=== PATIENT | female | born 1975 | race Caucasian/White ===

== ENCOUNTER 2021-10-06 18:11 | Inpatient (IN) | payer OTHER ==
--- NOTE | 2021-10-06 19:02 | ED ---
General Adult HPI - General Chief complaint: Psychiatric Symptoms Stated complaint: Petition Time Seen by Provider: 10/06/21 19:00 Source: patient, police Mode of arrival: ambulatory Limitations: no limitations - History of Present Illness Initial comments: Patient brought to the ED by police for psychiatric evaluation. Per report, police were called because the patient was following someone and recording them, stating that she was ANTHONY. Patient does not admit to this at this time, and instead, she states that she is unsure why she is here. Patient is able to tell me that the police brought her here. Patient is A&O x 3. Patient denies having suicidal ideations, homicidal ideations, hallucinations, alcohol use, illicit drug use, medication abuse or overdose, trauma or injury, any pain, fever or chills, WIN, focal neuro deficit, chest pain, dyspnea, dizziness, abdominal pain, nausea/vomiting, dysuria or urinary symptoms, or any other symptoms or complaints. Patient states that she has in [place] visiting friends, and she states that she resides in [place]. - Related Data Home Medications Medication Instructions Recorded Confirmed No Known Home Medications 10/06/21 10/06/21 Allergies Allergy/AdvReac Type Severity Reaction Status Date / Time No Known Allergies Allergy Verified 10/07/21 18:42 Review of Systems ROS Statement: Those systems with pertinent positive or pertinent negative responses have been documented in the HPI. ROS Other: All systems not noted in ROS Statement are negative. Past Medical History Past Medical History: No Reported History History of Any Multi-Drug Resistant Organisms: None Reported Past Surgical History: Ear Surgery Past Psychological History: No Psychological Hx Reported Smoking Status: Current some day smoker Past Alcohol Use History: Occasional Past Drug Use History: None Reported General Exam Limitations: no limitations General appearance: alert, in no apparent distress Head exam: Present: atraumatic, normocephalic Eye exam: Present: PERRL, EOMI, conjunctival injection ENT exam: Present: mucous membranes moist Neck exam: Present: other (Trachea is in midline; no nuchal rigidity or meni ngeal signs are present on examination). Absent: tenderness, meningismus Respiratory exam: Present: normal lung sounds bilaterally. Absent: respiratory distress, wheezes, rales, rhonchi, stridor Cardiovascular Exam: Present: regular rate, normal rhythm, normal heart sounds, other (Normal radial pulses bilaterally) GI/Abdominal exam: Present: soft. Absent: distended, tenderness, guarding Neurological exam: Present: alert, oriented X3, CN II-XII intact. Absent: motor sensory deficit Psychiatric exam: Present: normal affect Skin exam: Present: warm, dry, intact, normal color Course Vital Signs 10/06/21 10/07/21 18:25 03:00 Temperature 99.2 F 98 F Pulse Rate 101 H 77 Respiratory 18 20 Rate Blood Pressure 150/89 137/87 O2 Sat by Pulse 95 98 Oximetry - Reevaluation(s) Reevaluation #1: 10/07/21 01:00 Patient was endorsed to Dr. Burton (secondary to end of my shift) with psychiatric placement pending. Dr. Burton to follow up on the EPS nurse's recommendations and to take over care of the patient at this time. Medical Decision Making - Lab Data Result diagrams: 10/10/21 13:20 10/10/21 13:20 Lab Results 10/06/21 10/06/21 10/06/21 Range/Units 21:12 21:12 21:12 WBC 16.6 H (3.8-10.6) k/uL RBC 4.59 (3.80-5.40) m/uL Hgb 15.2 (11.4-16.0) gm/dL Hct 45.1 (34.0-46.0) % MCV 98.1 (80.0-100.0) fL MCH 33.0 (25.0-35.0) pg MCHC 33.7 (31.0-37.0) g/dL RDW 13.7 (11.5-15.5) % Plt Count 361 (150-450) k/uL MPV 7.6 Neutrophils % 74 % Lymphocytes % 19 % Monocytes % 5 % Eosinophils % 0 % Basophils % 0 % Neutrophils # 12.3 H (1.3-7.7) k/uL Lymphocytes # 3.2 (1.0-4.8) k/uL Monocytes # 0.8 (0-1.0) k/uL Eosinophils # 0.1 (0-0.7) k/uL Basophils # 0.1 (0-0.2) k/uL Sodium 139 (137-145) mmol/L Potassium 3.9 (3.5-5.1) mmol/L Chloride 109 H (98-107) mmol/L Carbon Dioxide 20 L (22-30) mmol/L Anion Gap 10 mmol/L BUN 18 H (7-17) mg/dL Creatinine 0.78 (0.52-1.04) mg/dL Est GFR (CKD-EPI)AfAm >90 (>60 ml/min/1.73 sqM) Est GFR (CKD-EPI)NonAf >90 (>60 ml/min/1.73 sqM) Glucose 116 H (74-99) mg/dL Estimated Ave Glu mg/dL Hemoglobin A1c (0.0-6.0) % Calcium 9.7 (8.4-10.2) mg/dL Total Bilirubin 1.5 H (0.2-1.3) mg/dL AST 23 (14-36) U/L ALT 30 (4-34) U/L Alkaline Phosphatase 87 (38-126) U/L Total Protein 7.7 (6.3-8.2) g/dL Albumin 4.3 (3.5-5.0) g/dL Triglycerides (0.00-149.00) mg/dL Cholesterol (0.00-200.00) mg/dL LDL Cholesterol, Calc (0.0-131.0) mg/dL VLDL Cholesterol, Calc (5.00-40.00) mg/dL HDL Cholesterol (40.00-60.00) mg/dL Cholesterol/HDL Ratio Ratio TSH (0.465-4.680) mIU/L Urine Color Urine Appearance (Clear) Urine pH (5.0-8.0) Ur Specific [place] (1.001-1.035) Urine Protein (Negative) Urine Glucose (UA) (Negative) Urine Ketones (Negative) Urine Blood (Negative) Urine Nitrite (Negative) Urine Bilirubin (Negative) Urine Urobilinogen (<2.0) mg/dL Ur Leukocyte Esterase (Negative) Urine RBC (0-5) /hpf Urine WBC (0-5) /hpf Ur Squamous Epith Cells (0-4) /hpf Urine Mucus (None) /hpf Urine Opiates Screen Not Detected (NotDetected) Ur Oxycodone Screen Not Detected (NotDetected) Urine Methadone Screen Not Detected (NotDetected) Ur Propoxyphene Screen Not Detected (NotDetected) Ur Barbiturates Screen Not Detected (NotDetected) U Tricyclic Antidepress Not Detected (NotDetected) Ur Phencyclidine Scrn Not Detected (NotDetected) Ur Amphetamines Screen Not Detected (NotDetected) U Methamphetamines Scrn Not Detected (NotDetected) U Benzodiazepines Scrn Detected H (NotDetected) Urine Cocaine Screen Not Detected (NotDetected) U Marijuana (THC) Screen Detected H (NotDetected) Coronavirus (PCR) (Not Detectd) 10/06/21 10/06/21 10/06/21 Range/Units 21:12 21:12 21:12 WBC (3.8-10.6) k/uL RBC (3.80-5.40) m/uL Hgb (11.4-16.0) gm/dL Hct (34.0-46.0) % MCV (80.0-100.0) fL MCH (25.0-35.0) pg MCHC (31.0-37.0) g/dL RDW (11.5-15.5) % Plt Count (150-450) k/uL MPV Neutrophils % % Lymphocytes % % Monocytes % % Eosinophils % % Basophils % % Neutrophils # (1.3-7.7) k/uL Lymphocytes # (1.0-4.8) k/uL Monocytes # (0-1.0) k/uL Eosinophils # (0-0.7) k/uL Basophils # (0-0.2) k/uL Sodium (137-145) mmol/L Potassium (3.5-5.1) mmol/L Chloride (98-107) mmol/L Carbon Dioxide (22-30) mmol/L Anion Gap mmol/L BUN (7-17) mg/dL Creatinine (0.52-1.04) mg/dL Est GFR (CKD-EPI)AfAm (>60 ml/min/1.73 sqM) Est GFR (CKD-EPI)NonAf (>60 ml/min/1.73 sqM) Glucose (74-99) mg/dL Estimated Ave Glu mg/dL 90 Hemoglobin A1c 4.8 (0.0-6.0) % Calcium (8.4-10.2) mg/dL Total Bilirubin (0.2-1.3) mg/dL AST (14-36) U/L ALT (4-34) U/L Alkaline Phosphatase (38-126) U/L Total Protein (6.3-8.2) g/dL Albumin (3.5-5.0) g/dL Triglycerides 82.10 (0.00-149.00) mg/dL Cholesterol 195.00 (0.00-200.00) mg/dL LDL Cholesterol, Calc 105.7 (0.0-131.0) mg/dL VLDL Cholesterol, Calc 16.42 (5.00-40.00) mg/dL HDL Cholesterol 72.90 H (40.00-60.00) mg/dL Cholesterol/HDL Ratio 2.67 Ratio TSH 3.080 (0.465-4.680) mIU/L Urine Color Urine Appearance (Clear) Urine pH (5.0-8.0) Ur Specific [place] (1.001-1.035) Urine Protein (Negative) Urine Glucose (UA) (Negative) Urine Ketones (Negative) Urine Blood (Negative) Urine Nitrite (Negative) Urine Bilirubin (Negative) Urine Urobilinogen (<2.0) mg/dL Ur Leukocyte Esterase (Negative) Urine RBC (0-5) /hpf Urine WBC (0-5) /hpf Ur Squamous Epith Cells (0-4) /hpf Urine Mucus (None) /hpf Urine Opiates Screen (NotDetected) Ur Oxycodone Screen (NotDetected) Urine Methadone Screen (NotDetected) Ur Propoxyphene Screen (NotDetected) Ur Barbiturates Screen (NotDetected) U Tricyclic Antidepress (NotDetected) Ur Phencyclidine Scrn (NotDetected) Ur Amphetamines Screen (NotDetected) U Methamphetamines Scrn (NotDetected) U Benzodiazepines Scrn (NotDetected) Urine Cocaine Screen (NotDetected) U Marijuana (THC) Screen (NotDetected) Coronavirus (PCR) Not Detected (Not Detectd) 10/06/21 Range/Units 21:28 WBC (3.8-10.6) k/uL RBC (3.80-5.40) m/uL Hgb (11.4-16.0) gm/dL Hct (34.0-46.0) % MCV (80.0-100.0) fL MCH (25.0-35.0) pg MCHC (31.0-37.0) g/dL RDW (11.5-15.5) % Plt Count (150-450) k/uL MPV Neutrophils % % Lymphocytes % % Monocytes % % Eosinophils % % Basophils % % Neutrophils # (1.3-7.7) k/uL Lymphocytes # (1.0-4.8) k/uL Monocytes # (0-1.0) k/uL Eosinophils # (0-0.7) k/uL Basophils # (0-0.2) k/uL Sodium (137-145) mmol/L Potassium (3.5-5.1) mmol/L Chloride (98-107) mmol/L Carbon Dioxide (22-30) mmol/L Anion Gap mmol/L BUN (7-17) mg/dL Creatinine (0.52-1.04) mg/dL Est GFR (CKD-EPI)AfAm (>60 ml/min/1.73 sqM) Est GFR (CKD-EPI)NonAf (>60 ml/min/1.73 sqM) Glucose (74-99) mg/dL Estimated Ave Glu mg/dL Hemoglobin A1c (0.0-6.0) % Calcium (8.4-10.2) mg/dL Total Bilirubin (0.2-1.3) mg/dL AST (14-36) U/L ALT (4-34) U/L Alkaline Phosphatase (38-126) U/L Total Protein (6.3-8.2) g/dL Albumin (3.5-5.0) g/dL Triglycerides (0.00-149.00) mg/dL Cholesterol (0.00-200.00) mg/dL LDL Cholesterol, Calc (0.0-131.0) mg/dL VLDL Cholesterol, Calc (5.00-40.00) mg/dL HDL Cholesterol (40.00-60.00) mg/dL Cholesterol/HDL Ratio Ratio TSH (0.465-4.680) mIU/L Urine Color Yellow Urine Appearance Cloudy H (Clear) Urine pH 5.5 (5.0-8.0) Ur Specific [place] 1.019 (1.001-1.035) Urine Protein Negative (Negative) Urine Glucose (UA) Negative (Negative) Urine Ketones Negative (Negative) Urine Blood Negative (Negative) Urine Nitrite Negative (Negative) Urine Bilirubin Negative (Negative) Urine Urobilinogen 2.0 (<2.0) mg/dL Ur Leukocyte Esterase Negative (Negative) Urine RBC 1 (0-5) /hpf Urine WBC 5 (0-5) /hpf Ur Squamous Epith Cells 7 H (0-4) /hpf Urine Mucus Rare H (None) /hpf Urine Opiates Screen (NotDetected) Ur Oxycodone Screen (NotDetected) Urine Methadone Screen (NotDetected) Ur Propoxyphene Screen (NotDetected) Ur Barbiturates Screen (NotDetected) U Tricyclic Antidepress (NotDetected) Ur Phencyclidine Scrn (NotDetected) Ur Amphetamines Screen (NotDetected) U Methamphetamines Scrn (NotDetected) U Benzodiazepines Scrn (NotDetected) Urine Cocaine Screen (NotDetected) U Marijuana (THC) Screen (NotDetected) Coronavirus (PCR) (Not Detectd) Disposition Clinical Impression: Delusions Disposition: ADMITTED IP TO THIS HOSP Is patient prescribed a controlled substance at d/c from ED?: No
[2021-10-06 21:43] LABS: Basophils # (A) 0.1 k/uL (0-0.2); Basophils % (A) 0 %; Eosinophils # (A) 0.1 k/uL (0-0.7); Eosinophils % (A) 0 %; HCT 45.1 % (34.0-46.0); HGB 15.2 gm/dL (11.4-16.0); Lymphocytes # (A) 3.2 k/uL (1.0-4.8); Lymphocytes % (A) 19 %; MCHC 33.7 g/dL (31.0-37.0); MCV 98.1 fL (80.0-100.0); Mean Platelet Volume 7.6; Monocytes # (A) 0.8 k/uL (0-1.0); Monocytes % (A) 5 %; Neutrophils # (A) 12.3 k/uL (1.3-7.7); Neutrophils % (A) 74 %; Platelet Count 361 k/uL (150-450); RBC 4.59 m/uL (3.80-5.40); RDW 13.7 % (11.5-15.5); WBC 16.6 k/uL (3.8-10.6)
[2021-10-06 21:54] LABS: ALT 30 U/L (4-34); AST 23 U/L (14-36); African American GFR (CKD) >90 (>60 ml/min/1.73 sqM); Albumin 4.3 g/dL (3.5-5.0); Alkaline Phosphatase 87 U/L (38-126); Anion Gap 10 mmol/L; Blood Urea Nitrogen 18 mg/dL (7-17); Calcium 9.7 mg/dL (8.4-10.2); Carbon Dioxide 20 mmol/L (22-30); Chloride 109 mmol/L (98-107); Glucose 116 mg/dL (74-99); Non-African American GFR(CKD) >90 (>60 ml/min/1.73 sqM); Potassium 3.9 mmol/L (3.5-5.1); Sodium 139 mmol/L (137-145); Total Bilirubin 1.5 mg/dL (0.2-1.3); Total Protein 7.7 g/dL (6.3-8.2)
[2021-10-06] MEDS ORDERED: LORazepam 1 MG TAB PO STA (22:17)
[2021-10-06] MEDS ORDERED: LORazepam 2 MG/ML INJ IM STA (22:25)
[2021-10-07] MEDS ORDERED: LORazepam 2 MG/ML INJ IM STA (13:07)
[2021-10-07] MEDS ORDERED: ZIPRASIDONE 20 MG VIAL IM STA (13:08)
[2021-10-07] MEDS ORDERED: MAG HYDROX/AL HYDROX/SIMETH 30 ML CUP PO PRN (18:16)
[2021-10-07] MEDS ORDERED: MAGNESIUM HYDROXIDE 2,400 MG/10 ML CUP PO PRN (18:16)
[2021-10-07] MEDS ORDERED: HALOPERIDOL LACTATE 5 MG/ML 1 ML VIAL IM PRN (18:16)
[2021-10-07] MEDS ORDERED: LORazepam 2 MG/ML INJ IM PRN (18:37)
[2021-10-07] MEDS ORDERED: haloperidoL 5 MG TAB PO PRN (18:37)
[2021-10-07] MEDS ORDERED: QUEtiapine 100 MG TAB PO PRN (18:37)
[2021-10-07 22:21] LABS: Appearance,Urine Cloudy (Clear); Bilirubin,Urine Negative (Negative); Blood,Urine Negative (Negative); Color,Urine Yellow; Glucose,Urine (UA) Negative (Negative); Ketones,Urine Negative (Negative); Leukocyte Esterase,Urine Negative (Negative); Mucus,Urine Rare /hpf; Nitrite,Urine Negative (Negative); PH, Urine 5.5 (5.0-8.0); Protein,Urine Negative (Negative); RBC,Urine 1 /hpf (0-5); Specific Gravity,Urine 1.019 (1.001-1.035); Squamous Epithelial Cell,Urine 7 /hpf (0-4); WBC,Urine 5 /hpf (0-5)
[2021-10-07] MEDS: LORazepam 1 MG TAB PO PRN (22:23)
[2021-10-07 22:31] LABS: Amphetamine Screen,Urine Not Detected (NotDetected); Barbiturate Screen,Urine Not Detected (NotDetected); Benzodiazepines Screen,Urine Detected (NotDetected); Cocaine Screen,Urine Not Detected (NotDetected); Methadone Screen, Urine Not Detected (NotDetected); Opiate Screen,Urine Not Detected (NotDetected); Oxycodone Screen, Urine Not Detected (NotDetected); Phencyclidine Screen,Urine Not Detected (NotDetected); Tricyclic Antidepressant,Urine Not Detected (NotDetected); Urn Cannabinoid Scrn Detected (NotDetected)
--- NOTE | 2021-10-08 00:05 | P.PN ---
Progress Note - Text Progress Note Date: 10/08/21 The patient refused to be seen or evaluated at 2100 on 10/07.
--- NOTE | 2021-10-08 00:24 | P.CONS ---
History of Present Illness - Reason for Consult Consult date: 10/08/21 - History of Present Illness Patient is a 46-year-old female with a PMH of marijuana abuse who was brought to the emergency room under police custody due to paranoid behavior. The patient was admitted to the mental health unit when she was seen and evaluated. She reports that she is not aware why she was brought in and that she should be discharged soon. She denied any physical complaints at the time of interview. She reports no past medical history and does not take any medications. He denied chest discomfort cautious with, fever, chills, cough, nausea, vomiting, abdominal pain, diarrhea. She denied tobacco use or substance use aside from marijuana. Review of systems: Pertinent positives and negatives as discussed in HPI, a complete review of systems was performed and all other systems are negative. Physical examination: General: non toxic, no distress, appears at stated age, normal weight Derm: no unusual rashes/lesions no unusual ecchymoses, warm, dry Head: atraumatic, normocephalic, symmetric Eyes: EOMI, no lid lag, anicteric sclera, pupils equal round reactive to light ENT: Nose and ears atraumatic, no thrush, no pharyngeal erythema Neck: No thyromegaly, no cervical lymphadenopathy, trachea midline, supple Mouth: no lip lesion, mucus membranes moist Cardiovascular: S1S2 reg, no murmur, positive posterior tibial pulse bilateral, no edema, capillary refill less than 2 seconds Lungs: CTA bilateral, no rhonchi, no rales , no accessory muscle use Abdominal: soft, nontender to palpation, no guarding, no appreciable organomegaly, normal bowel sounds Ext: no gross muscle atrophy, muscle strength 5 out of 5 in all 4 extremities grossly, no contractures, Neuro: CN II-XI grossly intact, light touch intact all 4 extremities, finger to nose within normal limits, Psych: Alert, oriented, appropriate affect Assessment/plan Marijuana Abuse -Strongly advised on importance of cessation Psychosis -As per psychiatry Thank you for allowing us to participate in the care of this patient. We will follow peripherally. Do not hesitate to contact us with questions. Someone can be reached from the [facility] hospitalist group at all hours of the day at [phone]. Past Medical History Past Medical History: No Reported History History of Any Multi-Drug Resistant Organisms: None Reported Past Surgical History: Ear Surgery Past Anesthesia/Blood Transfusion Reactions: No Reported Reaction Past Psychological History: No Psychological Hx Reported Smoking Status: Current some day smoker Past Alcohol Use History: Occasional Past Drug Use History: None Reported Medications and Allergies Home Medications Medication Instructions Recorded Confirmed Type No Known Home Medications 10/06/21 10/06/21 History Allergies Allergy/AdvReac Type Severity Reaction Status Date / Time No Known Allergies Allergy Verified 10/07/21 18:42 Physical Exam Vitals: Vital Signs Temp Pulse Pulse Resp BP BP Pulse Ox 10/07/21 18:24 97.4 F L 94 20 121/76 10/07/21 03:00 98 F 77 20 137/87 98 Intake and Output 10/07/21 10/07/21 10/08/21 14:59 22:59 06:59 Other: Weight 82.554 kg Results CBC & Chem 7: 10/06/21 21:12 10/06/21 21:12 Labs: Abnormal Lab Results - Last 24 Hours (Table) 10/06/21 10/06/21 Range/Units 21:12 21:28 Urine Appearance Cloudy H (Clear) Ur Squamous Epith Cells 7 H (0-4) /hpf Urine Mucus Rare H (None) /hpf U Benzodiazepines Scrn Detected H (NotDetected) U Marijuana (THC) Screen Detected H (NotDetected)
[2021-10-08 06:17] VITALS: RESP 16
[2021-10-08 09:04] LABS: Urine Alcohol Negative (Negative); Urine Barbiturate Negative (Negative); Urine Cocaine Negative (Negative); Urine Methadone Negative (Negative); Urine Opiates Negative (Negative); Urine Phencyclidine Negative (Negative)
[2021-10-08] MEDS: NICOTINE 14MG/24HR PATCH TRANSDERM SCH (09:15)
[2021-10-08 09:44] LABS: Chol/HDL Ratio 2.67 Ratio; LDL Cholesterol,Calculated 105.7 mg/dL (0.0-131.0); VLDL Calculation 16.42 mg/dL (5.00-40.00)
--- NOTE | 2021-10-08 13:06 | P.HP ---
Psychiatric H&P - . H&P Date: 10/08/21 History & Physical: Allergies Allergy/AdvReac Type Severity Reaction Status Date / Time No Known Allergies Allergy Verified 10/07/21 18:42 Vital Signs Temp 97.7 F 10/08/21 06:16 Pulse 77 10/08/21 06:16 Resp 16 10/08/21 06:16 BP 108/62 10/08/21 06:16 Pulse Ox 95 10/08/21 06:16 Intake & Output 10/07/21 10/08/21 10/08/21 18:59 06:59 18:59 Weight 82.554 kg Laboratory Last Values WBC 16.6 k/uL (3.8-10.6) H 10/06/21 21:12 RBC 4.59 m/uL (3.80-5.40) 10/06/21 21:12 Hgb 15.2 gm/dL (11.4-16.0) 10/06/21 21:12 Hct 45.1 % (34.0-46.0) 10/06/21 21:12 MCV 98.1 fL (80.0-100.0) 10/06/21 21:12 MCH 33.0 pg (25.0-35.0) 10/06/21 21:12 MCHC 33.7 g/dL (31.0-37.0) 10/06/21 21:12 RDW 13.7 % (11.5-15.5) 10/06/21 21:12 Plt Count 361 k/uL (150-450) 10/06/21 21:12 MPV 7.6 10/06/21 21:12 Neutrophils % 74 % 10/06/21 21:12 Lymphocytes % 19 % 10/06/21 21:12 Monocytes % 5 % 10/06/21 21:12 Eosinophils % 0 % 10/06/21 21:12 Basophils % 0 % 10/06/21 21:12 Neutrophils # 12.3 k/uL (1.3-7.7) H 10/06/21 21:12 Lymphocytes # 3.2 k/uL (1.0-4.8) 10/06/21 21:12 Monocytes # 0.8 k/uL (0-1.0) 10/06/21 21:12 Eosinophils # 0.1 k/uL (0-0.7) 10/06/21 21:12 Basophils # 0.1 k/uL (0-0.2) 10/06/21 21:12 Sodium 139 mmol/L (137-145) 10/06/21 21:12 Potassium 3.9 mmol/L (3.5-5.1) 10/06/21 21:12 Chloride 109 mmol/L (98-107) H 10/06/21 21:12 Carbon Dioxide 20 mmol/L (22-30) L 10/06/21 21:12 Anion Gap 10 mmol/L 10/06/21 21:12 BUN 18 mg/dL (7-17) H 10/06/21 21:12 Creatinine 0.78 mg/dL (0.52-1.04) 10/06/21 21:12 Est GFR (CKD-EPI)AfAm >90 (>60 ml/min/1.73 sqM) 10/06/21 21:12 Est GFR (CKD-EPI)NonAf >90 (>60 ml/min/1.73 sqM) 10/06/21 21:12 Glucose 116 mg/dL (74-99) H 10/06/21 21:[address] Glu mg/dL 90 10/06/21 21:12 Hemoglobin A1c 4.8 % (0.0-6.0) 10/06/21 21:12 Calcium 9.7 mg/dL (8.4-10.2) 10/06/21 21:12 Total Bilirubin 1.5 mg/dL (0.2-1.3) H 10/06/21 21:12 AST 23 U/L (14-36) 10/06/21 21:12 ALT 30 U/L (4-34) 10/06/21 21:12 Alkaline Phosphatase 87 U/L (38-126) 10/06/21 21:12 Total Protein 7.7 g/dL (6.3-8.2) 10/06/21 21:12 Albumin 4.3 g/dL (3.5-5.0) 10/06/21 21:12 Triglycerides 82.10 mg/dL (0.00-149.00) 10/06/21 21:12 Cholesterol 195.00 mg/dL (0.00-200.00) 10/06/21 21:12 LDL Cholesterol, Calc 105.7 mg/dL (0.0-131.0) 10/06/21 21: VLDL Cholesterol, Calc 16.42 mg/dL (5.00-40.00) 10/06/21 21: HDL Cholesterol 72.90 mg/dL (40.00-60.00) H 10/06/21 21: Cholesterol/HDL Ratio 2.67 Ratio 10/06/21: TSH 3.080 mIU/L (0.465-4.680) 10/06/21 21: Urine Color Yellow 10/06/21 21: Urine Appearance Cloudy (Clear) H 10/06/21 21: Urine pH 5.5 (5.0-8.0) 10/06/21: Ur Specific [place] 1.019 (1.001-1.035) 10/06/21 21: Urine Protein Negative (Negative) 10/06/21 21: Urine Glucose (UA) Negative (Negative) 10/06/21 21: Urine Ketones Negative (Negative) 10/06/21 21: Urine Blood Negative (Negative) 10/06/21 21: Urine Nitrite Negative (Negative) 10/06/21 21: Urine Bilirubin Negative (Negative) 10/06/21: Urine Urobilinogen 2.0 mg/dL (<2.0) 10/06/21 21:28 Ur Leukocyte Esterase Negative (Negative) 10/06/21 21:28 Urine RBC 1 /hpf (0-5) 10/06/21 21:28 Urine WBC 5 /hpf (0-5) 10/06/21 21:28 Ur Squamous Epith Cells 7 /hpf (0-4) H 10/06/21 21:28 Urine Mucus Rare /hpf (None) H 10/06/21 21:28 Urine Opiates Screen Negative (Negative) 10/07/21 20:29 Ur Oxycodone Screen Not Detected (NotDetected) 10/06/21 21: Urine Methadone Screen Negative (Negative) 10/07/21 20:29 Ur Propoxyphene Screen Negative (Negative) 10/07/21 20:29 Ur Barbiturates Screen Not Detected (NotDetected) 10/06/21 21: Urine Barbiturates Negative (Negative) 10/07/21 20:29 U Tricyclic Antidepress Not Detected (NotDetected) 10/06/21 21:12 Ur Phencyclidine Scrn Negative (Negative) 10/07/21 20:29 Ur Amphetamine Screen Negative (Negative) 10/07/21 20:29 Ur Amphetamines Screen Not Detected (NotDetected) 10/06/21 21:12 U Methamphetamines Scrn Not Detected (NotDetected) 10/06/21 21:12 U Benzodiazepines Scrn Negative (Negative) 10/07/21 20:29 Urine Cocaine Screen Negative (Negative) 10/07/21 20:29 U Cannabinoids Screen Positive (Negative) A 10/07/21 20:29 U Marijuana (THC) Screen Detected (NotDetected) H 10/06/21 21:12 Urine Alcohol Negative (Negative) 10/07/21 20:29 Coronavirus (PCR) Not Detected (Not Detectd) 10/06/21 21:12 10/08/21 12:59 IDENTIFYING DATA: Patient is a 46-year-old female who [facility] [place] however is . She has no kids. She claims t hat she works at [employer]. HPI: Patient presented to the hospital yesterday on a petition brought in by the police. Patient apparently was making statements about working for [employer] and driving around town calling someone a terrorist repeatedly. She apparently has a history of schizophrenia and was psychiatrically hospitalized several times in [place]. Patient had a positive urine drug screen for benzodiazepines and marijuana. Patient was admitted involuntarily to the mental health unit. She was fairly concrete, guarded and evasive with underwriter mortgage loan. She was very suspicious of underwriter mortgage loan and endorsing paranoia. She claims that she is "not sure" why she is in the hospital. She claims that she was driving around town" got lost" as she was supposed to end up in "[facility]". She states that she has a "friend in the area" and will be staying with her however when asked more questions, patient began getting more defensive and irritable with underwriter mortgage loan. She claims that "you're only here to give the medications and then discharged me". She was fairly demanding at times. She states that she took Risperdal in the past and only takes it when she "calls my psychiatrist and he tells me to take it". She states that she's been off medications for several weeks now. She was fairly guarded and evasive about how she got to [place] from [place]. She states that she sleeps fairly and has a fair appetite. She denied everything on the petition filled out by the police. Patient denies any suicidal or homicidal ideations intent or plan. At this time patient denies any auditory or visual hallucinations. Patient denies any flight of ideas racing thoughts and increased in goal directed behavior. Patient admits to using cigarettes daily and admits to marijuana use. PAST PSYCHIATRIC HISTORY: Patient states that she believes she has no psychiatric illness. She claims that she has been on several different medications in the past including Risperdal. She claims that she has been hospitalized in the past however was guarded about it. She claims that she does have a psychiatrist in [place] however did not give the name. Patient denies any history of suicide attempts in the past. PMH: As per medicine note ALLERGIES: as per EMR CHEMICAL DEPENDENCY HISTORY: as per HPI FAMILY PSYCHIATRIC/SUBSTANCE USE HISTORY: denies SOCIAL HISTORY: Patient was born and raised in [facility]. She states that she has a bachelor's degree in finance from [employer]. She claims that she has no kids. She states that she is . She claims that her residence [place] [facility] [place]. She denies ever going to detention or half-way. MENTAL STATUS EXAM: General Appearance: Patient appears to be tall, unkempt hair, stated age is alert, defensive, paranoid and argumentative. Patient appears to have poor hygiene and grooming. Behavior: Patient is seated without any agitated behavior. Paranoid Speech: Patient's speech is fluent and nonpressured. [place] Mood/Affect: Patient reports their mood is "fine", affect is congruent and constricted. Suicidality/Homicidality: Patient denies having any homicidal ideation intent or plan. Denies any suicidal ideations intent or plan Perceptions: Patient denies any visual hallucinations and denies any auditory hallucinations Though content/process: [place], poverty of content. Guarded/evasive. Paranoid. Memory and concentration: AOX3, grossly intact for the purposes of this session. Can spell "WORLD" backwards Judgment and insight: poor STRENGTHS/WEAKNESSES: strength is that patient is resilient. Weakness is that patient has poor judgment, insight and is impulsive INTELLECT: average IMPRESSIONS: Schizophrenia Cannabis use disorder Nicotine dependence PLAN: -Patient is admitted under involuntary status to MHU for stabilization of psychiatric symptoms and safety. Patient has signed medication consent and is placed in patient's chart. A second certification was completed and along with petition will be filed for court. -Medications : Will start patient on paliperidone by mouth 3 mg daily at bedtime for psychosis. -Ativan and Haldol PRN for agitation/aggression -Patient was counselled on substance abuse and desired to cut back on use -Patient was informed of the risks, benefits and side effects of the medication and patient verbally consented to taking the medications. Patient signed med consent form and was placed in chart. -Internal Medicine consult to perform medical evaluation and physical. -NRT - nicotine patch -SW on board for discharge planning. Encourage patient to participate in groups to work on coping skills. Will await deferral and court date.
[2021-10-08] MEDS ORDERED: PALIPERIDONE 3 MG TAB.ER.24 PO SCH (21:00)
[2021-10-09] MEDS: NICOTINE 14MG/24HR PATCH TRANSDERM SCH (08:07)
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
[2021-10-09] MEDS: PALIPERIDONE 6 MG TAB.ER.24 PO SCH (20:56)
[2021-10-10] MEDS: LORazepam 1 MG TAB PO PRN (05:45)
[2021-10-10] MEDS: NICOTINE 14MG/24HR PATCH TRANSDERM SCH (08:12)
[2021-10-10] MEDS: ACETAMINOPHEN TAB 325 MG TAB PO PRN (11:03)
[2021-10-10] MEDS ORDERED: CEPHALEXIN 250 MG CAP PO PRN (11:20)
--- NOTE | 2021-10-10 11:27 | P.PN ---
Progress Note - Text Progress Note Date: 10/10/21 (\\) Interval History: Patient was seen in her room today and was directable and agreeable to speak with greeting card writer in the office. Patient appeared to be calmer today with greeting card writer and less hostile. She continues to be guarded about her plans for discharge. She states that she wants to go and stay in [place]. She claims that her car is close by and with the police. She claims that she does not want her family to know that she is in [place] and will not sign the release of information form. She appears to have mildly improved insight however continues to be superficial at times. She states that she will be taking the Invega pills and at this time is refusing Invega Sustenna. She claims that she'll "think about it". She claims that her mood and anxiety of an improving. She states that she only slept about 3 hours last night and needed Ativan. She is able to take trazodone tonight. She states that she is not getting anything from groups and refuses to go. She continues to endorse mild paranoia however this is improving. At this time patient denies any suicidal or homical ideations, intent or plan. Patient denies any auditory, visual hallucinations. Patient denies any side effects from the medications and has been compliant with meds. Mental Status Exam: General Appearance: Patient appears to be tall, unkempt hair, stated age is alert, paranoid and more directable today. Patient appears to have improving hygiene and grooming. Behavior: Patient is seated without any agitated behavior. Paranoid, improving Speech: Patient's speech is fluent and nonpressured. [place] Mood/Affect: Patient reports their mood is "ok", affect is congruent and constricted. Suicidality/Homicidality: Patient denies having any homicidal ideation intent or plan. Denies any suicidal ideations intent or plan Perceptions: Patient denies any visual hallucinations and denies any auditory hallucinations Though content/process: [place], more logical today. Guarded about discharge planning. Memory and concentration: AOX3, grossly intact for the purposes of this session Judgment and insight: poor, improving mildly Assessment Schizophrenia Cannabis use disorder Nicotine dependence Plan: -Patient continues to meet criteria for inpatient psychiatric admission for symptom stabilization and safety. Patient has signed medication consent and was placed in patient's chart. -Medications: paliperidone by mouth to 6 mg daily at bedtime for psychosis. offered patient FRANCO however she declined but will think about it for tomorrow. start trazodone 50 mg qhs for insomnia -When necessary Ativan and Haldol for agitation/aggression. -NRT - nicotine patch -SW on board for discharge planning. Encouraged the patient to participate in milieu. Currently awaiting deferral with personal injury attorney and court date.
[2021-10-10 13:31] LABS: Basophils % (A) 0 %; Eosinophils % (A) 0 %; HGB 14.8 gm/dL (11.4-16.0); Lymphocytes # (A) 2.9 k/uL (1.0-4.8); Lymphocytes % (A) 26 %; MCH 33.1 pg (25.0-35.0); MCHC 33.5 g/dL (31.0-37.0); MCV 98.7 fL (80.0-100.0); Mean Platelet Volume 7.6; Monocytes # (A) 0.5 k/uL (0-1.0); Monocytes % (A) 4 %; Neutrophils # (A) 7.6 k/uL (1.3-7.7); Neutrophils % (A) 67 %; Platelet Count 309 k/uL (150-450); RBC 4.46 m/uL (3.80-5.40); WBC 11.4 k/uL (3.8-10.6)
[2021-10-10 13:53] LABS: African American GFR (CKD) >90 (>60 ml/min/1.73 sqM); Anion Gap 9 mmol/L; Blood Urea Nitrogen 8 mg/dL (7-17); Calcium 9.5 mg/dL (8.4-10.2); Carbon Dioxide 22 mmol/L (22-30); Chloride 106 mmol/L (98-107); Glucose 99 mg/dL (74-99); Non-African American GFR(CKD) >90 (>60 ml/min/1.73 sqM); Sodium 137 mmol/L (137-145)
[2021-10-10] MEDS: BENZOCAINE/MENTHOL LOZENG 1 EACH LOZENGE MUCOUS MEM PRN ×2 (16:41→23:28)
[2021-10-10] MEDS: PALIPERIDONE 6 MG TAB.ER.24 PO SCH (20:42)
[2021-10-10] MEDS ORDERED: traZODone HCL 50 MG TAB PO SCH (21:00)
[2021-10-11] MEDS: NICOTINE 14MG/24HR PATCH TRANSDERM SCH (08:40)
[2021-10-11] MEDS ORDERED: PALIPERIDONE IM 234 MG/1.5 ML SYG IM STA (11:16)
--- NOTE | 2021-10-11 11:22 | P.PN ---
Progress Note - Text Progress Note Date: 10/11/21 Interval History: Patient was seen wandering the hallways today and was directable and agreeable to speak with blog writer in the office. Patient appeared to be calmer today with blog writer. Patient was also more appropriate. She claims that she thought about the Invega Sustenna injection and claims that she is agreeable to receive that today. She asked more questions about her medications. She continues to be fairly guarded about her discharge planning and what she plans on doing or where she is going. She claims that her car is still impounded and she states that she has enough money to get it out. She claims that she has not heard from her deputy commonwealth's attorney thus far and was explained about the court process and that she will be meeting with the deputy commonwealth's attorney on Thursday. She claims that she is still not interested in going to groups. She claims that she feels bored. She claims that her mood and anxiety of an improving. She states that she slept a bit better last night. She continues to endorse mild paranoia however this is improving. At this time patient denies any suicidal or homical ideations, intent or plan. Patient denies any auditory, visual hallucinations. Patient denies any side effects from the medications and has been compliant with meds. Mental Status Exam: General Appearance: Patient appears to be tall, unkempt hair, stated age is alert, paranoid, improving mildly and more directable today. Patient appears to have improving hygiene and grooming. Behavior: Patient is seated without any agitated behavior. Paranoid, improving Speech: Patient's speech is fluent and nonpressured. [place] Mood/Affect: Patient reports their mood is "fine", affect is congruent and const ricted. Suicidality/Homicidality: Patient denies having any homicidal ideation intent or plan. Denies any suicidal ideations intent or plan Perceptions: Patient denies any visual hallucinations and denies any auditory hallucinations Though content/process: [place], more logical today. Guarded about discharge planning. Memory and concentration: AOX3, grossly intact for the purposes of this session Judgment and insight: poor, improving mildly Assessment Schizophrenia Cannabis use disorder Nicotine dependence Plan: -Patient continues to meet criteria for inpatient psychiatric admission for symptom stabilization and safety. Patient has signed medication consent and was placed in patient's chart. -Medications: paliperidone by mouth to 6 mg daily at bedtime for psychosis, will decrease down to 3 mg at nighttime on Thursday. Patient is agreeable to take loading dose of Invega Sustenna today 234 mg IM. trazodone 50 mg qhs prn for insomnia -When necessary Ativan and Haldol for agitation/aggression. -NRT - nicotine patch - on board for discharge planning. Encouraged the patient to participate in milieu. Currently awaiting deferral with deputy commonwealth's attorney set for thursday. If patient continues to improve over the weekend then likely discharge thursday.
[2021-10-11] MEDS: BENZOCAINE/MENTHOL LOZENG 1 EACH LOZENGE MUCOUS MEM PRN (17:15)
[2021-10-11] MEDS: PALIPERIDONE 6 MG TAB.ER.24 PO SCH (21:31)
[2021-10-11] MEDS: ACETAMINOPHEN TAB 325 MG TAB PO PRN (22:32)
[2021-10-12] MEDS: NICOTINE 14MG/24HR PATCH TRANSDERM SCH (08:49)
--- NOTE | 2021-10-12 18:19 | PN ---
PROGRESS NOTE DATE OF SERVICE: 10/12/2021 CHIEF COMPLAINT: The patient came on petition by police for apparent delusional thinking. INTERVAL HISTORY: The patient has been doing fair. She had a quiet day yesterday. Mostly she keeps to herself. She spends most of her time in her room. She does not interact too much with others. She has been cooperative with care. She did not attend groups yesterday. She said she slept some last night, though Nursing documented as of 0500 hours that she had not slept at all in the night. Today she has been mainly in her room. She comes out for meals. She continues to be focused on the idea that there is no basis for her to be in the hospital. She does note that she worked out a plan with Dr. Trotter that if she takes her medications, that she could be discharged on Thursday once she has signed a deferral and if she is showing continued improvement. For the patient's part, she notes that her plan is to be moving to [place]. She was unclear about details. She continues to say that she had been given drugs that likely had set off hallucinations for her, though she does not believe that she has any reason to either be in the hospital at present or that she needs to be on psychotropic medications. She understands that there would be consideration for her to continue on the long-acting injectable antipsychotic. She voiced no side effects or problems relating to her psychotropics. She has been taking her oral medication. MENTAL STATUS: Patient sat with some restlessness. She gave good eye contact. At times she had a staring gaze. She answered questions with brief responses. Mostly she focused on her concern about the misstatement of events. Her affect was intense, her mood dysphoric. She was moderately distressed. She showed no response to internal stimuli. She apparently has had delusional thinking. She voiced no thoughts of harm. Cognition was clear. ASSESSMENT: I will continue the current diagnosis and treatment plan will. We will continue to make efforts to engage the patient in individual and group therapeutic activities. I will continue psychotropic medications the same. She is on Invega 9 mg oral daily. Also she received Invega Sustenna 234 mg IM on the 10/11. We will need to engage Social Work to identify appropriate followup for her, as apparently she will be residing outside of this [facility]. We will focus on stabilization and discharge planning. BRIGIDOODL / IJN: [id number] /
[2021-10-12] MEDS: BENZOCAINE/MENTHOL LOZENG 1 EACH LOZENGE MUCOUS MEM PRN (20:58)
[2021-10-12] MEDS: PALIPERIDONE 6 MG TAB.ER.24 PO SCH (20:58)
[2021-10-13] MEDS: traZODone HCL 50 MG TAB PO PRN (02:22)
[2021-10-13] MEDS: NICOTINE 14MG/24HR PATCH TRANSDERM SCH (08:37)
[2021-10-13] MEDS: BENZOCAINE/MENTHOL LOZENG 1 EACH LOZENGE MUCOUS MEM PRN (08:39)
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
[2021-10-13] MEDS: PALIPERIDONE 3 MG TAB.ER.24 PO SCH (21:06)
[2021-10-14] MEDS: BENZOCAINE/MENTHOL LOZENG 1 EACH LOZENGE MUCOUS MEM PRN ×2 (01:47→10:19)
[2021-10-14] MEDS: NICOTINE 14MG/24HR PATCH TRANSDERM SCH (08:25)
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
[2021-10-14] MEDS: PALIPERIDONE 3 MG TAB.ER.24 PO SCH (21:36)
[2021-10-14] MEDS: traZODone HCL 50 MG TAB PO PRN (23:16)
[2021-10-15] MEDS: NICOTINE 14MG/24HR PATCH TRANSDERM SCH (08:07)
[2021-10-15] MEDS: BENZOCAINE/MENTHOL LOZENG 1 EACH LOZENGE MUCOUS MEM PRN (08:08)
[2021-10-15 08:09] VITALS: BP 110/67; PULSE 108; TEMP 97.2
--- NOTE | 2021-10-15 18:22 | DS ---
DISCHARGE SUMMARY DATE OF SERVICE: 10/15/2021. DATE OF ADMISSION: 10/07/2021. DATE OF DISCHARGE: 10/15/2021. HISTORY OF PRESENTING ILLNESS: The patient is a 46-year-old female. She came to the hospital on petition, brought by police. The patient was making statements about working for the [facility] and apparently was believing there were terrorists about. She had a history of schizophrenia with past psychiatric hospitalizations in [place]. She indicated that she had just come to the [facility], though was vague on particulars as to why she had come. She suggested that she had contacts in the area. She apparently had been living in [place] just prior to coming to [place]. She was admitted on petition for involuntary hospitalization. She was admitted for further evaluation. MENTAL STATUS EXAM: The patient was defensive, paranoid and argumentative. She had poor hygiene and grooming. Her speech was concrete and non-pressured, her affect constricted. She was not indicating any thoughts of harm. She showed paranoid thinking. She was oriented and alert. COURSE OF HOSPITALIZATION: Patient was admitted for comprehensive medical, psychiatric and psychosocial evaluation. We engaged the patient in individual and group therapeutic activities. It was noted that the urine drug screen was positive for marijuana and benzodiazepines. She was counseled on the importance of being completely off of abusive substances. Early on the patient was quite withdrawn. She spent a lot of time in her room. She was started on Invega, which she accepted. The dose was titrated up to 6 mg a day. She was counseled on the option of Invega Sustenna, which she ultimately accepted. On 10/11/2021 she received Invega Sustenna 234 mg IM. Her oral Invega was reduced to 3 mg a day. In general, the patient tended to be fairly reserved throughout her hospital stay. She was not too inclined to interact much with others. She did start attending some groups later in her hospital stay. She was able to engage appropriately in discharge planning, though it was not fully clear of all the details. Patient was indicating that she had housing available at a hotel where she had been residing prior to coming to [place]. She said her plan was to return there, which was in [facility]. She agreed to follow up with [facility]. She signed a deferral in regard to her petition. CONDITION AT DISCHARGE: Patient was stable. Her mood was improved. She had clear thoughts and was not showing indications of significant problems with thought disorder. She voiced no thoughts of harm. She tolerated her psychotropic medications. RECOMMENDATIONS AND FOLLOWUP: Discharge medications include: 1. Invega 3 mg a day. 2. Trazodone 50 mg a day. 3. She received Invega Sustenna 234 mg IM on 10/11 and is due for Invega Sustenna 156 mg IM on 10/18. She is referred to [facility]. She was given contact information, as the patient had to show proof of residency as part of being accepted for followup in [facility]. It is noted that her car was retained by police and that she had made arrangements with the police to pickler helper her car. She was transported by a taxi to her car. MMMELIDA / SOLAN: [id number] / MTDD
== END 2021-10-15 15:50 | disposition home or self-care (01) | DRG 885 ==
LOC: EC 18:11 → 3MHU 10-07 17:32
PROVIDERS: ADMIT Psychiatry & Neurology Psychiatry; ATTEND Psychiatry & Neurology Psychiatry
DX: F20.9 Schizophrenia, unspecified (principal); F12.10 Cannabis abuse, uncomplicated; F17.210 Nicotine dependence, cigarettes, uncomplicated; F39 Unspecified mood [affective] disorder; F41.9 Anxiety disorder, unspecified; Z79.899 Other long term (current) drug therapy; Z20.822 Contact with and (suspected) exposure to COVID-19
CPT/HCPCS: 36415; 80048; 80053; 80061; 80306; 81001; 81025; 82075; 83036; 84443; 85025; 87635; 96372; 99285

== ENCOUNTER 2021-10-18 22:06 | Inpatient (IN) | payer MEDICARE, OTHER ==
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
[2021-10-18 22:54] LABS: Amphetamine Screen,Urine Not Detected (NotDetected); Barbiturate Screen,Urine Not Detected (NotDetected); Benzodiazepines Screen,Urine Not Detected (NotDetected); Cocaine Screen,Urine Not Detected (NotDetected); Methadone Screen, Urine Not Detected (NotDetected); Opiate Screen,Urine Not Detected (NotDetected); Oxycodone Screen, Urine Not Detected (NotDetected); Phencyclidine Screen,Urine Not Detected (NotDetected); Tricyclic Antidepressant,Urine Not Detected (NotDetected); Urn Cannabinoid Scrn Not Detected (NotDetected)
[2021-10-19] MEDS ORDERED: haloperidoL 5 MG TAB PO PRN (01:28)
[2021-10-19] MEDS ORDERED: HALOPERIDOL LACTATE 5 MG/ML 1 ML VIAL IM PRN (01:28)
[2021-10-19] MEDS ORDERED: MAGNESIUM HYDROXIDE 2,400 MG/10 ML CUP PO PRN (01:28)
[2021-10-19] MEDS ORDERED: MAG HYDROX/AL HYDROX/SIMETH 30 ML CUP PO PRN (01:28)
[2021-10-19] MEDS ORDERED: ACETAMINOPHEN TAB 325 MG TAB PO PRN (01:28)
[2021-10-19] MEDS ORDERED: LORazepam 2 MG/ML INJ IM PRN (01:28)
--- NOTE | 2021-10-19 03:57 | P.PN ---
Progress Note - Text Progress Note Date: 10/19/21 Patient sedated and not appropriate for evaluation.
--- NOTE | 2021-10-19 11:52 | P.HP ---
Psychiatric H&P - . H&P Date: 10/19/21 History & Physical: Allergies Allergy/AdvReac Type Severity Reaction Status Date / Time No Known Allergies Allergy Verified 10/19/21 11:04 Vital Signs Temp 97.9 F 10/19/21 08:00 Pulse 116 H 10/19/21 08:00 Resp 16 10/19/21 08:00 BP 104/60 10/19/21 08:00 Pulse Ox 98 10/19/21 08:00 Intake & Output 10/18/21 10/19/21 10/19/21 18:59 06:59 18:59 Weight 74.843 kg 74.843 kg Laboratory Last Values Urine Opiates Screen Not Detected (NotDetected) 10/18/21 22:19 Ur Oxycodone Screen Not Detected (NotDetected) 10/18/21 22:19 Urine Methadone Screen Not Detected (NotDetected) 10/18/21 22:19 Ur Propoxyphene Screen Not Detected (NotDetected) 10/18/21 22:19 Ur Barbiturates Screen Not Detected (NotDetected) 10/18/21 22:19 U Tricyclic Antidepress Not Detected (NotDetected) 10/18/21 22:19 Ur Phencyclidine Scrn Not Detected (NotDetected) 10/18/21 22:19 Ur Amphetamines Screen Not Detected (NotDetected) 10/18/21 22:19 U Methamphetamines Scrn Not Detected (NotDetected) 10/18/21 22:19 U Benzodiazepines Scrn Not Detected (NotDetected) 10/18/21 22:19 Urine Cocaine Screen Not Detected (NotDetected) 10/18/21 22:19 U Marijuana (THC) Screen Not Detected (NotDetected) 10/18/21 22:19 Coronavirus (PCR) Not Detected (Not Detectd) 10/19/21 00:21 10/19/21 11:30 Chief complaint: Per guardian the patient has not been compliant with medication and was found on the side of the road stopped in her car. History of present illness: This patient drove her car off the road to the side and related 4 hours inside her car. She could not tell the police what happened and why she was there. She has a legal guardian who told the hospital staff that she has not been compliant with her medications. When patient was asked she stated she was waiting for her to pick her up. This patient reportedly was discharged from psychiatric unit a few days ago. She stated that she does not have any place of her own to live and is currently trying to find an apartment. She stated she stays at [facility] for the time being. Patient denies she has any psychiatric problems. Current medications: She is taking Invega 3 mg at bedtime however she has not been compliant with her medication. She stated she is not on any other medications. When asked why she was taking Invega she stated that it was prescribed to her. Patient is in total denial and does not want to provide any history. Past psychiatric history: she stated she was in a psychiatric hospital one time in [place]. She stated that the police brought her to the hospital and she was admitted here on mental health unit and stayed for about 8 days. She stated she was here 4 or 5 days ago. Substance abuse history: She stated that she drinks alcohol occasionally and when asked she stated she drinks once or twice per week. She denies use of any other drugs or use of any cannabis products. Medical history: She denies having any medical problems at present. She stated she has a history of surgery on her ear in the past. Family history: She stated she is estranged from her family. She stated she however has 3 sisters and a dad who do not communicate with her. She stated her mother is . She denied any history of mental illness or suicide in the family. Social history: She grew up with her mother and father and 3 sisters. She stated she has a bachelors in finance. 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 She denies holding any job in finance. She stated she has a flexible schedule and works only when she can. History of abuse: She denies any history of physical sexual or emotional abuse ever in the past. Mental status: This patient is a 46 years old and appears to be of her stated age. She is alert and oriented to time place and person. She has increased levels of psychomotor activity. She is adequately dressed. Her behavior is passively cooperative but does not want to provide any information about her past or her mental illness. She described her mood as okay. She gives a very monosyllable answers and appears to be quite guarded and suspicious. She denies having any auditory visual or any other types of hallucinations. She does not have a loose associations of flight of ideas or any other disorder of thought process. She does appear to be paranoid and guarded. She denies having any delusions obsessions or compulsions. Her ability to concentrate on task is fair. Her attention span is fair. She denies she has any mental illness despite being in psychiatric hospitals in the past. Her judgment is poor and she was found to be in the car and was rescued by police after 4 or 5 hours. Her explanation was that she was waiting for her and according to records she does not have any . She herself denies having any relationship with her family. 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 She will continue to be encouraged to participate in milieu and other activities offered to her on the mental health unit. Prognosis: Her prognosis is guarded to poor at this time because she has no insight into her mental illness. 10/19/21 11:36
--- NOTE | 2021-10-19 16:04 | P.PN ---
Subjective Progress Note Date: 10/18/21 Principal diagnosis: progress note Oct 18 2021 SHe was seen today in my office. I introduced myself as [facility] to provide coverage for Dr. Tami Bernardo. While she was not asking for early discharge, she did not reiterate the trajectory of her depression. Non-compliance with her medication was the angel factor. She talked briefly about the adverse family milieu. She vaguely indicated the onset of her psychotic depression to be related to her daughter which has worsened over the past few years. She did not want to elaborate upon her relationship with her male partner. Relapse with re-admission prsenting with suicidal ideation and psychosis highlighted the seriousness of her clinical presentation. 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 She did not present with any history of substa nce use . MSE: She was cooperative and appeared to be lethargic, with marked poverty of content of speech. Affect: Flat and slightly guarded congruent with thought content. No perceptual disturbance of hallucinations. She did not elaborate on her mothererly role and whether she missed nurturing her child. She denied suicidal or homicidal ideation. Cognition. oriented , insight and judgment marginal Diagnosis: psychotic depression; major depression with very high severity and psychosis rule out schizoaffective disorder Management: She would require longer period. I would suggest if by next week no further change. Her Remeron to be increased to 45 mg po qhs. and atypical to be changed to Ability at 5 mg po bid. She may tolerate the switch. However, if she fails to respond and if she still endorses suicidal ideation , she will be actively considered for EXT/rTMS. Reinforcing psychoeducation re; counseling and medication compliance will be essential. Objective - Vital Signs Vital signs: Vital Signs Temp 97.9 F 10/19/21 08:00 Pulse 116 H 10/19/21 08:00 Resp 16 10/19/21 08:00 BP 104/60 10/19/21 08:00 Pulse Ox 98 10/19/21 08:00 Intake & Output 10/18/21 10/19/21 10/19/21 18:59 06:59 18:59 Weight 74.843 kg 74.843 kg
[2021-10-19] MEDS: PALIPERIDONE 3 MG TAB.ER.24 PO SCH (20:46)
[2021-10-19] MEDS: traZODone HCL 50 MG TAB PO PRN (23:11)
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
--- NOTE | 2021-10-20 12:07 | P.PN ---
Progress Note - Text Progress Note Date: 10/20/21 Interval History: Patient was seen in her room and was directable and agreeable to speak with radio script writer. She continues to be isolating herself from peers and is very guarded and paranoid. Patient believes that she was not stranded on the [place] and was sitting in her car to get some help. At this time patient denies any suicidal or homical ideations, intent or plan. Patient denies any auditory, visual hallucinations and denies any paranoia or delusions. Patient denies any side effects from the medications and has been compliant with meds. Patient believes that her was going to pick her up. Mental Status Exam: General Appearance: Patient appears to be stated age is alert, directable, and cooperative. Behavior: Patient is calm without any agitated behavior. Speech: Patient's speech is non fluent and nonpressured. Mood/Affect: Mood is maintaining the status quo, affect is congruent and constricted. Suicidality/Homicidality: Patient denies having any suicidal or homicidal ideation intent or plan. Perceptions: Patient denies any visual hallucinations and denies any auditory hallucinations Though content/process: Patient does appear to be delusional. Memory and concentration: AOX3, grossly intact for the purposes of this session Judgment and insight: Improving mildly Assessment This patient continues to maintain the status quo and continues to be delusional she is taking her medications. Plan: -Patient continues to meet criteria for inpatient psychiatric admission for symptom stabilization and safety. -Medications: Continue medication as before -When necessary Ativan and Haldol for agitation/aggression. -SW on board for discharge planning. Encouraged the patient to participate in milieu.
[2021-10-20] MEDS: PALIPERIDONE 3 MG TAB.ER.24 PO SCH (21:28)
[2021-10-20] MEDS: LORazepam 1 MG TAB PO PRN (23:41)
[2021-10-21] MEDS ORDERED: PALIPERIDONE IM 156 MG/ML SYG IM STA (11:50)
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
[2021-10-21] MEDS: PALIPERIDONE 3 MG TAB.ER.24 PO SCH (20:48)
[2021-10-21] MEDS: LORazepam 1 MG TAB PO PRN (23:26)
--- NOTE | 2021-10-22 13:06 | P.PN ---
Progress Note - Text Progress Note Date: 10/22/21 Interval History: Patient was seen lying in bed this morning and was directable and agreeable to speak with selling underwriter in the office. Patient appears to be more cooperative today with selling underwriter. She appears to be showing signs of improvement in terms of her irritability and lability emotionally. She claims that she still wants to be discharged fairly soon. She continues to claim that she is going to consent to the order. She took the Invega Sustenna injection yesterday and tolerated it well. She claims that she is able to sleep fairly last night after taking the trazodone. She was asking about when the paliperidone can be discontinued. She asked other questions about her medications which were answered. She continues to demonstrate fairly poor insight and judgment when speaking about discharge planning. She claims to have a fair appetite. At this time patient denies any suicidal or homical ideations, intent or plan. Patient denies any auditory, visual hallucinations. Patient denies any side effects from the medications and has been compliant with meds. Granite Polisher Machine spoke with patients sister/tereso over the phone who expressed her concerns about patients care and meds. Sister requested patient to be placed on closet pain however due to poor compliance and history of eloping and not following up, it was decided a better idea would be to continue on with long- acting injection to ensure compliance. Sr. will be looking into different options for placement upon discharge. Mental Status Exam: General Appearance: Patient appears to be tall, unkempt hair, stated age is alert, more directable today. Patient appears to have improving hygiene and grooming. Behavior: Patient is seated without any agitated behavior. less paranoid. more cooperative today. Speech: Patient's speech is fluent and nonpressured. [place] Mood/Affect: Patient reports their mood is "fine", affect is congruent and labile. Suicidality/Homicidality: Patient denies having any homicidal ideation intent or plan. Denies any suicidal ideations intent or plan Perceptions: Patient denies any visual hallucinations and denies any auditory hallucinations Though content/process: [place], more logical today. improving paranoia. Memory and concentration: AOX3, grossly intact for the purposes of this session Judgment and insight: Chronically poor, improving mildly Assessment Schizophrenia Cannabis use disorder Nicotine dependence Plan: -Patient continues to meet criteria for inpatient psychiatric admission for symptom stabilization and safety. Patient is currently on a deferral and will be filing for demand for hearing. -Medications: paliperidone by mouth 3 mg daily at bedtime for psychosis, will discontinue tomorrow. Given Invega Sustenna 156 mg IM on 10/21, will be due for next dose on 11/11 156 mg IM as her monthly dose. Continue trazodone 50 mg qhs prn for insomnia -When necessary Ativan and Haldol for agitation/aggression. -NRT - nicotine patch -SW on board for discharge planning. Encouraged the patient to participate in milieu. Currently awaiting demand for hearing date. Patient states that she will likely consent to order and sign a waive and stip.
[2021-10-22] MEDS: PALIPERIDONE 3 MG TAB.ER.24 PO SCH (21:05)
--- NOTE | 2021-10-23 09:44 | P.PN ---
Progress Note - Text Progress Note Date: 10/23/21 Interval History: Patient was seen lying in bed this morning and was directable and agreeable to speak with technical writer in the office. Patient was initially cooperative with technical writer during conversation. She was answering questions appropriately. As conversation progressed, patient became more defensive and demanding. She stated multiple times that she wants to be "discharged on my own recognizance". She made several references to the law and that technical writer is only "they're to prescribe medications that's it". She claims that she does not want manager social services or anybody to call her . She states that she did not speak with her sister over the phone. She claims that she is not interested in going to groups. She continues to be willing to sign the waive and stip with rib cloth knitter however is not willing to work with the team for discharge planning. She states that her huband can come to the hospital to pick her up. She was fairly argumentative today. she states she is sleeping ok and has fair appetite. She continues to demonstrate fairly poor insight and judgment when speaking about di scharge planning. She claims to have a fair appetite. At this time patient denies any suicidal or homical ideations, intent or plan. Patient denies any auditory, visual hallucinations. Patient denies any side effects from the medications and has been compliant with meds. Mental Status Exam: General Appearance: Patient appears to be tall, unkempt hair, stated age is alert, argumentative. Patient appears to have improving hygiene and grooming. Behavior: Patient is seated without any agitated behavior. argumentative today. demanding Speech: Patient's speech is fluent and nonpressured. [place]. Mood/Affect: Patient reports their mood is "fine", affect is incongruent Suicidality/Homicidality: Patient denies having any homicidal ideation intent or plan. Denies any suicidal ideations intent or plan Perceptions: Patient denies any visual hallucinations and denies any auditory hallucinations Though content/process: [place], more logical today. demanding. argumentative Memory and concentration: AOX3, grossly intact for the purposes of this session Judgment and insight: Chronically poor, improving mildly Assessment Schizophrenia Cannabis use disorder Nicotine dependence Plan: -Patient continues to meet criteria for inpatient psychiatric admission for symptom stabilization and safety. Patient is currently on a deferral and will be filing for demand for hearing. -Medications: continue with paliperidone by mouth 3 mg daily at bedtime for psychosis for one more day, will discontinue tomorrow. Given Invega Sustenna 156 mg IM on 10/21, will be due for next dose on 11/11 156 mg IM as her monthly dose. Continue trazodone 50 mg qhs prn for insomnia. added depakote 250 mg bid for mood stabilization -When necessary Ativan and Haldol for agitation/aggression. -NRT - nicotine patch -ESTEBAN on board for discharge planning. Encouraged the patient to participate in milieu. Currently awaiting demand for hearing date. Patient states that she will likely consent to order and sign a waive and stip. ESTEBAN will continue to work with tereso for discharge planning.
[2021-10-23] MEDS: DIVALPROEX ER 250 MG TAB.ER.24H PO SCH ×2 (09:57→20:55)
[2021-10-24] MEDS: traZODone HCL 50 MG TAB PO PRN (01:40)
[2021-10-24] MEDS: DIVALPROEX ER 250 MG TAB.ER.24H PO SCH ×2 (08:08→22:57)
--- NOTE | 2021-10-24 13:08 | P.PN ---
Progress Note - Text Progress Note Date: 10/24/21 Interval History: Patient was seen lying in bed this morning and was directable and agreeable to speak with telegraphic typewriter installer in the office. Patient was initially cooperative with telegraphic typewriter installer during conversation. She continues to be superficial at times during conversation. She denies any overnight events and states that she slept fairly last night with the trazodone. She claims that she is mainly keeping herself in her room. She was not responding to internal stimuli. She was fairly goal oriented. She continues to be argumentative and aggressive when speaking about discharge planning. She continues to state that she does not need to involve her guardian/sister or her . She claims that she wants to sign the waive and stip and avoid going to the hearing with the engineering associate. She pointed her finger at telegraphic typewriter installer several times and told him "your just a psychiatrist you have no business with my discharge". She claims to have a fair appetite. At this time patient denies any suicidal or homical ideations, intent or plan. Patient denies any auditory, visual hallucinations. Patient denies any side effects from the medications and has been compliant with meds. Mental Status Exam: General Appearance: Patient appears to be tall, unkempt hair, stated age is alert, argumentative. Patient appears to have improving hygiene and grooming. Behavior: Patient is seated without any agitated behavior. argumentative today. Speech: Patient's speech is fluent and nonpressured. [place]. Mood/Affect: Patient reports their mood is "fine", affect is incongruent Suicidality/Homicidality: Patient denies having any homicidal ideation intent or plan. Denies any suicidal ideations intent or plan Perceptions: Patient denies any visual hallucinations and denies any auditory hallucinations Though content/process: [place], more logical today. demanding. argumentative Memory and concentration: AOX3, grossly intact for the purposes of this session Judgment and insight: Chronically poor, improving mildly Assessment Schizophrenia Cannabis use disorder Nicotine dependence Plan: -Patient continues to meet criteria for inpatient psychiatric admission for symptom stabilization and safety. Patient is currently on a deferral and will be filing for demand for hearing. -Medications: d/c paliperidone po. Given Invega Sustenna 156 mg IM on 10/21, will be due for next dose on 11/11 156 mg IM as her monthly dose. Continue trazodone 50 mg qhs prn for insomnia. continue with depakote 250 mg bid for mood stab ilization -When necessary Ativan and Haldol for agitation/aggression. -NRT - nicotine patch -ESTEBAN on board for discharge planning. Encouraged the patient to participate in milieu. court hearing date set for 10/30. Patient states that she will likely consent to order and sign a waive and stip. ESTEBAN will continue to work with tereso for discharge planning. likely discharge once patient has a safe d/c p lexie.
[2021-10-25] MEDS: DIVALPROEX ER 250 MG TAB.ER.24H PO SCH ×2 (08:53→21:51)
--- NOTE | 2021-10-25 12:20 | P.PN ---
Progress Note - Text Progress Note Date: 10/25/21 Interval History: Patient was seen sitting at the side of her bed this morning and was directable and agreeable to speak with contract technical writer in the office. Patient was initially cooperative with contract technical writer during conversation however continues to be fairly irritable and argumentative with contract technical writer. She continues to be superficial with certain questions however when contract technical writer began questions about patient's insight patient becomes very defensive and paranoid about contract technical writer. She continues to the hostile towards him and impulsive. She continues to state that she does not need her guardian's permission to do "anything". She claims that she has not been speaking with her sister over the phone. She claims that she can "go wherever I want" and is not agreeable to follow-up or taking her medications when she leaves the hospital. She did appear to be more paranoid today and aggressive and unpredictable. She continues to state that she does not need to involve her guardian/sister or her . She claims that she wants to sign the waive and stip and avoid going to the hearing with the seat installer. She claims to have a fair appetite. At this time patient denies any suicidal or homical ideations, intent or plan. Patient denies any auditory, visual hallucinations. Patient denies any side effects from the medications and has been compliant with meds. Mental Status Exam: General Appearance: Patient appears to be tall, unkempt hair, stated age is alert, argumentative. Significant paranoia. Patient appears to have improving hygiene and grooming. Behavior: Patient is seated without any agitated behavior. argumentative today. Paranoid and irritable. Hostile with contract technical writer. Impulsive. Speech: Patient's speech is fluent and nonpressured. [place]. Mood/Affect: Patient reports their mood is "fine", affect is incongruent and superficial Suicidality/Homicidality: Patient denies having any homicidal ideation intent or plan. Denies any suicidal ideations intent or plan Perceptions: Patient denies any visual hallucinations and denies any auditory hallucinations Though content/process: [place]. demanding. argumentative. Very poor judgment and insight. Memory and concentration: AOX3, grossly intact for the purposes of this session Judgment and insight: Chronically poor Assessment Schizophrenia Cannabis use disorder Nicotine dependence Plan: -Patient continues to meet criteria for inpatient psychiatric admission for symptom stabilization and safety. Patient is currently on a deferral and will be filing for demand for hearing. -Medications: Given Invega Sustenna 156 mg IM on 10/21. After speaking with patient's sister/guardian about patient's condition, it was agreed that patient may need to be started on clozapine as she has had better responses with this medication in the past. We'll start clozapine 25 mg twice a day for 2 days and then increase to 50 mg twice a day for psychosis/mood stabilization. Continue trazodone 50 mg qhs prn for insomnia. Continue depakote 250 mg bid for mood stabilization. -When necessary Ativan and Haldol for agitation/aggression. -NRT - nicotine patch -SW on board for discharge planning. Encouraged the patient to participate in milieu. court hearing date set for 10/30. Patient states that she will likely consent to order and sign a waive and stip. Bluing Oven Tender spoke with patient's guardian/sister over the phone today who states that she will try to find patient an apartment this coming week close to her to help monitor patient's condition. After discussing other treatment options, guardian and contract technical writer both agreed to switch patient onto clozapine as she has had better response to this medication in the past and will begin to titrate up. Will order basic metabolic panel and CBC with diff. Continue to monitor patient's progress over the weekend.
[2021-10-25 12:36] LABS: African American GFR (CKD) >90 (>60 ml/min/1.73 sqM); Anion Gap 9 mmol/L; Blood Urea Nitrogen 11 mg/dL (7-17); Calcium 9.6 mg/dL (8.4-10.2); Carbon Dioxide 23 mmol/L (22-30); Chloride 105 mmol/L (98-107); Glucose 93 mg/dL (74-99); Non-African American GFR(CKD) 85 (>60 ml/min/1.73 sqM); Potassium 4.2 mmol/L (3.5-5.1); Sodium 137 mmol/L (137-145)
[2021-10-25 12:56] LABS: Basophils % (A) 0 %; Eosinophils % (A) 0 %; HCT 43.3 % (34.0-46.0); HGB 14.9 gm/dL (11.4-16.0); Lymphocytes # (A) 2.9 k/uL (1.0-4.8); Lymphocytes % (A) 26 %; MCH 34.1 pg (25.0-35.0); MCHC 34.4 g/dL (31.0-37.0); Mean Platelet Volume 7.9; Monocytes # (A) 0.5 k/uL (0-1.0); Monocytes % (A) 5 %; Neutrophils # (A) 7.6 k/uL (1.3-7.7); Neutrophils % (A) 68 %; Platelet Count 330 k/uL (150-450); RBC 4.37 m/uL (3.80-5.40); RDW 13.7 % (11.5-15.5); WBC 11.3 k/uL (3.8-10.6)
[2021-10-25] MEDS: cloZAPine 25 MG TAB PO SCH (21:51)
[2021-10-26] MEDS: DIVALPROEX ER 250 MG TAB.ER.24H PO SCH (09:41)
[2021-10-26] MEDS: cloZAPine 25 MG TAB PO SCH (09:41)
--- NOTE | 2021-10-26 15:49 | P.PN ---
Progress Note - Text Progress Note Date: 10/26/21 CHIEF COMPLAINT Patient had disorganized behavior, possible confusion, and medication noncompliance. INTERVAL HISTORY The patient has been doing fair. She had a quiet day yesterday. She isolates. She spends most of the time in her room. She doesn't socialize with peers. Stated that yesterday she attended "a couple groups" though the documentation indicated that she did not attend any groups. The best I was able to tell she slept fairly well last night. Today she continues the same. She is very focused on the idea that she should not be in the hospital and does not feel that she has any significant mental health issues. She is very distressed about the idea that her sister has been appointed guardian. She was quite upset today about finding out she had been started on clozapine, as she said no one had formed her about starting a new medication. According to Dr. Trotter's note from yesterday he had coordinated this with the patient's sister though did not indicate that he had informed the patient. The patient stated the same was the case with her being started on Depakote. She was quite adamant about the idea that she would just continue on Invega and did not want to take any more oral medications. She did not indicate any issues related to side effects or problems from her medications. MENTAL STATUS EXAM Patient was fairly restless. She gave good eye contact. She responded to most questions appropriately though often she would veer off and began complaining about how things have been taken out of context. At times she could get intense and makes statements that she would dannie the hospital. There were times that she was quite tearful. Much of the time her affect was intense. Her mood dysphoric. She was moderately distressed. There was no clear indication of the patient responding to internal stimuli. It's unclear whether or not the delusional thinking comes in the picture. She voiced no thoughts of harm. I'm cognitive exam she was oriented and alert. ASSESSMENT/PLAN I will continue the current diagnosis and treatment plan. We will continue to make efforts to engage the patient in individual and group therapeutic activities. I had an extensive discussion with the patient regarding the medications including Dr. Tortter recommendation to start clozapine. I discussed the indication, potential side effects, concerns relating to metabolic's, and issues related to WBCs. After the discussion the patient was willing to take the medication and continue with the titration though she requested that she not be continued on Depakote. I will discontinue Depakote and continue to titrate up on her clozapine. I also reviewed she is related to her use of the long- acting injectable. We will focus on stabilization and discharge planning.
[2021-10-26] MEDS ORDERED: cloZAPine 25 MG TAB PO SCH (21:00)
[2021-10-27] MEDS: cloZAPine 25 MG TAB PO SCH (08:40)
--- NOTE | 2021-10-27 14:29 | P.PN ---
Progress Note - Text Progress Note Date: 10/27/21 CHIEF COMPLAINT Patient had disorganized behavior, possible confusion, and medication noncomplia nce. INTERVAL HISTORY The patient had a quiet day yesterday. Mostly she keeps to herself. She will come out on the unit she doesn't interact much with others she has been cooperative with care. She has been taking clozapine as her newest medication. She attended one group last evening. He slept well last night. Today she spent all. Again mostly she has been in her room. She comes out for meals. She had no specific complaints or concerns today. She did not voice any issues relating to her psychotropic medications. She appears to tolerate the start and titration of her clozapine. MENTAL STATUS EXAM Patient sat with a little restlessness. She gave good eye contact. She didn't say much. Her thoughts were clear and coherent. Her affect was a little constricted. She had a quiet calm manner. She didn't appear to be depressed or distressed. She had a friendly manner. There was no indication of thought disorder. She voiced no thoughts of self-harm. She was oriented and alert. ASSESSMENT/PLAN I will continue the current diagnosis and treatment plan. We will continue to make efforts to engage the patient in individual and group therapeutic activities. The patient seems to be doing fairly well today. We will focus on stabilization and discharge planning and voiced no issues relating to the court process. She also had no issues relating to the start of clozapine. The dose will be titrated up to a total of 125 mg today and tomorrow I will look to increasing the dose to a total of 200 mg a day with her having 50 mg in the morning and the remainder of dosing at bedtime. I briefly reviewed medication issues with the patient so she was not too inclined to engage much in the conversation so I kept limited. We will focus on stabilization and discharge planning.
[2021-10-27] MEDS ORDERED: cloZAPine 25 MG TAB PO SCH ×2 (21:00)
[2021-10-28] MEDS: cloZAPine 25 MG TAB PO SCH (09:32)
--- NOTE | 2021-10-28 16:04 | P.PN ---
Progress Note - Text Progress Note Date: 10/28/21 CHIEF COMPLAINT Patient had disorganized behavior, possible confusion, and medication noncomplia nce. INTERVAL HISTORY The patient had a quiet day yesterday. Mostly she keeps to herself. She will come out on the unit she doesn't interact much with others she has been cooperative with care. She did not attend groups yesterday. She has been taking clozapine as her newest medication and seemed to suggest that it might be helping her. He slept well last night. Today she spent all. Again mostly she has been in her room. She comes out for meals. She had no specific complaints or concerns today. She did not voice any issues relating to her psychotropic medications. She seemed to indicate that she was comfortable taking clozapine and that she understood it would require weekly blood work. She did not voice any concerns about the blood work or other issues related to clozapine. She appears to tolerate the start and titration of her clozapine. She tolerates the combination of the clozapine and Invega Sustenna. She stated it was her understanding that she has completed all of the court paperwork in anticipation of discharge. MENTAL STATUS EXAM Patient sat with a little restlessness. She gave good eye contact. She answered questions directly. She didn't say a lot. Her thoughts were clear and coherent. Her affect was a little constricted. She had a quiet calm manner. She didn't appear to be depressed or distressed. There was no indication of thought disorder. She voiced no thoughts of self-harm. She was oriented and alert. ASSESSMENT/PLAN I will continue the current diagnosis and treatment plan. We will continue to make efforts to engage the patient in individual and group therapeutic activities. We will focus on stabilization and discharge planning and voiced no issues relating to the court process. She also had no issues relating to the start of clozapine. The dose will be titrated up to a total of 200 mg today and tomorrow I will look to increasing the dose to a total of 200 mg, with 50 mg in the morning and the remainder of dosing at bedtime. I briefly reviewed medication issues with the patient. She seemed to be accepting and comfortable regarding issues related to medications. We will focus on stabilization and discharge planning.
[2021-10-28] MEDS ORDERED: cloZAPine 100 MG TAB PO SCH (21:00)
[2021-10-29 08:34] VITALS: RESP 16
[2021-10-29] MEDS: cloZAPine 25 MG TAB PO SCH (08:35)
--- NOTE | 2021-10-29 10:34 | P.PN ---
Progress Note - Text Progress Note Date: 10/29/21 Interval History: Patient was seen sitting at the side of her bed this morning and was directable and agreeable to speak with freelance copywriter in the office. Patient was initially mildly more cooperative with freelance copywriter today. She claims that she has been doing "okay" and is denying any complaints. She states that she is tolerating the medication clozapine fairly well. She claims that it is helping her with her mood and thoughts. She was fairly superficial about how she is doing and with freelance copywriter. She states that she is sleeping fairly at nighttime. She is denying any side effects at this time. She denies any depression or anxiety. She continues to be fairly defensive about her guardian and states that she does not want to speak to her sister. She claims that her sister is not looking out for her best interest. She states that she wants to have her friend come and pick her up from the hospital and she wants to stay at a hotel. She continues to be fairly defensive and argumentative about her discharge plan and not cooperative. She also claims that she wants to be discharged "on my own recognicense" and also threatened to dannie freelance copywriter and the hospital if we are not going to discharge her. She claims to have a fair appetite. At this time patient denies any suicidal or homical ideations, intent or plan. Patient denies any auditory, visual hallucinations. Patient denies any side effects from the medications and has been compliant with meds. Mental Status Exam: General Appearance: Patient appears to be tall, unkempt hair, stated age is alert, argumentative. Significant paranoia. Patient appears to have improving hygiene and grooming. Behavior: Patient is seated without any agitated behavior. argumentative today. Paranoid. Hostile with freelance copywriter, improving midlly. Speech: Patient's speech is fluent and nonpressured. [place]. Mood/Affect: Patient reports their mood is "ok", affect is incongruent and superficial Suicidality/Homicidality: Patient denies having any homicidal ideation intent or plan. Denies any suicidal ideations intent or plan Perceptions: Patient denies any visual hallucinations and denies any auditory hallucinations Though content/process: [place], improving midlly Very poor judgment and insight. Memory and concentration: AOX3, grossly intact for the purposes of this session Judgment and insight: Chronically poor Assessment Schizophrenia Cannabis use disorder Nicotine dependence Plan: -Patient continues to meet criteria for inpatient psychiatric admission for symptom stabilization and safety. Patient is currently on a deferral and will be filing for demand for hearing. -Medications: Given Invega Sustenna 156 mg IM on 10/21. continue increasing clozapine 25 mg daily + 200 mg qhs for psychosis/mood stabilization. Continue trazodone 50 mg qhs prn for insomnia. -When necessary Ativan and Haldol for agitation/aggression. -NRT - nicotine patch -SW on board for discharge planning. Encouraged the patient to participate in milieu. court hearing date set for 10/30. Patient states that she will likely consent to order and sign a waive and stip. After discussing other treatment options, guardian and freelance copywriter both agreed to titrate clozapine as she has had better response to this medication in the past. Will continue to follow cbc with diff. Continue to monitor patient's progress and SW to reach out to tereso to continue coordinating patients d/c plan.
[2021-10-29] MEDS: cloZAPine 100 MG TAB PO SCH (21:27)
[2021-10-30 08:47] LABS: Basophils % (A) 0 %; Eosinophils % (A) 0 %; HCT 45.6 % (34.0-46.0); HGB 15.2 gm/dL (11.4-16.0); Lymphocytes # (A) 3.6 k/uL (1.0-4.8); Lymphocytes % (A) 31 %; MCH 32.8 pg (25.0-35.0); MCHC 33.3 g/dL (31.0-37.0); MCV 98.3 fL (80.0-100.0); Mean Platelet Volume 7.9; Monocytes # (A) 0.6 k/uL (0-1.0); Monocytes % (A) 5 %; Neutrophils % (A) 61 %; Platelet Count 299 k/uL (150-450); RBC 4.64 m/uL (3.80-5.40); RDW 13.1 % (11.5-15.5); WBC 11.5 k/uL (3.8-10.6)
[2021-10-30] MEDS ORDERED: cloZAPine 25 MG TAB PO SCH ×2 (09:00)
--- NOTE | 2021-10-30 10:42 | P.PN ---
Progress Note - Text Progress Note Date: 10/30/21 Interval History: Patient was seen wandering the hallways this morning and was directable and ag reeable to speak with ghost writer in the office. Patient was more cooperative today with ghost writer. She states that she did not have any overnight issues or complaints. She states that she has been doing "okay". She claims that she is tolerating the Clozaril fairly well and feels that it is helping with her mood and thoughts. She states that she still has not spoken with her sister who is her guardian. She continues to claim that she wants to be discharged to "[facility]" which is one of her friends in the area and appears to be more cooperative today with discharge planning. She states that she is able to sleep fairly at nighttime. She claims that she is having regular bowel movements. has a fair appetite. At this time patient denies any suicidal or homical ideations, intent or plan. Patient denies any auditory, visual hallucinations. Patient denies any side effects from the medications and has been compliant with meds. Mental Status Exam: General Appearance: Patient appears to be tall, unkempt hair, stated age is alert, more cooperative today. Patient appears to have improving hygiene and grooming. Behavior: Patient is seated without any agitated behavior. More cooperative today. Speech: Patient's speech is fluent and nonpressured. [place]. Mood/Affect: Patient reports their mood is "fine", affect is congruent and constricted Suicidality/Homicidality: Patient denies having any homicidal ideation intent or plan. Denies any suicidal ideations intent or plan Perceptions: Patient denies any visual hallucinations and denies any auditory hallucinations Though content/process: [place], improving midlly. poor judgment and insight, improving mildly. Not endorsing paranoia today. Memory and concentration: AOX3, grossly intact for the purposes of this session Judgment and insight: Chronically poor, improving mildly Assessment Schizophrenia Cannabis use disorder Nicotine dependence Plan: -Patient continues to meet criteria for inpatient psychiatric admission for symptom stabilization and safety. Patient is currently on a deferral and will be filing for demand for hearing. -Medications: Given Invega Sustenna 156 mg IM on 10/21. continue clozapine 25 mg daily + 200 mg qhs for psychosis/mood stabilization. Continue trazodone 50 mg qhs prn for insomnia. -When necessary Ativan and Haldol for agitation/aggression. -ANC drawn on 10/30 - 0.7 -NRT - nicotine patch -SW on board for discharge planning. Encouraged the patient to participate in milieu. patient signed waive and stip and is now on a court order for MH treatment. Continue to monitor patient's progress and SW to reach out to gaurdian to continue coordinating patients d/c plan. ghost writer will also speak with pts gaurdian and regulatory attorney today to work on d/c planning. likely discharge in 1-2 days.
[2021-10-30] MEDS: cloZAPine 100 MG TAB PO SCH (20:50)
[2021-10-30 20:53] VITALS: TEMP 97.2
[2021-10-31] MEDS ORDERED: cloZAPine 25 MG TAB PO SCH (09:00)
[2021-10-31 09:17] VITALS: BP 103/62; PULSE 109
--- NOTE | 2021-10-31 10:15 | P.DS ---
Providers Date of admission: 10/19/21 01:26 Expected date of discharge: 10/31/21 Attending physician: Gael Trotter MD Consults: 10/19/21 01:28 Consult Physician Routine Consulting Provider: Torres Escobar Consult Reason/Comments: H & P w/medical management Do you want consulting provider notified?: Yes, Notify in am Primary care physician: Stated None - Discharge Diagnosis(es) (1) Schizophrenia Current Visit: Yes Status: Acute Priority: High (2) Cannabis use disorder, mild, abuse Current Visit: Yes Status: Acute Priority: Medium (3) Nicotine dependence Current Visit: Yes Status: Acute Priority: Low Hospital Course: Admission HPI: Admission note was completed by Dr Bergeron "Per guardian the patient has not been compliant with medication and was found on the side of the road stopped in her car. This patient drove her car off the road to the side and related 4 hours inside her car. She could not tell the police what happened and why she was there. She has a legal guardian who told the hospital staff that she has not been compliant with her medications. When patient was asked she stated she was waiting for her to pick her up. This patient reportedly was discharged from psychiatric unit a few days ago. She stated that she does not have any [place] of her own to live and is currently trying to find an apartment. She stated she stays at [facility] for the time being. Patient denies she has any psychiatric problems. She is taking Invega 3 mg at bedtime however she has not been compliant with her medication. She stated she is not on any other medications. When asked why she was taking Invega she stated that it was prescribed to her. Patient is in total denial and does not want to provide any history." Hospital course: Upon admission to the unit patient was admitted involuntarily on a deferral and a demand for hearing was filed with the courts. Patient ended up signing a waive and stip with the consumer attorney and agreeing to treatment. Patient got along well with other patients on the unit and followed unit protocol. Patient was c ompliant with the medications and denied any side effects throughout hospital course. Patient was started on paliperidone by mouth and given a dose of Invega Sustenna 156 mg IM on 10/21 however patient continued to be paranoid and aggressive with documentation writer and also showing severe hostility. After speaking with patient's guardian it was decided that patient be transitioned onto clozapine, it was started and increased to a total dose of 25 mg daily +200 mg daily at bedtime for psychosis/mood stabilization. Trazodone was also restarted 50 mg daily at bedtime when necessary for insomnia. Patient spoke of her stressors and engaged in therapy both group and individual. Patient was also seen by medical team for history and physical exam. Patient's WBCs and ANC were monitored while on clozapine and did not show any significant abnormalities. Throughout the course of the hospitalization patient gradually improved with regards to mood, anxiety, sleep and returned back to their baseline level of functioning. On the day of discharge patient denied any suicidal or homicidal ideations intent or plan denied any auditory or visual hallucinations. Patient endorsed wanting to live for her health and her future. The patient denied any access to guns or weapons. Patient denied any paranoia and did not endorse any delusions. Patient does have a significant history of substance abuse and was c ounseled on abstaining from all substances including alcohol and marijuana. Patient was also counseled on the medications and need for regular compliance and was encouraged to follow-up with their outpatient appointment for mental health and also for primary care. Prior to discharge a family meeting will be arranged by licensed clinical social worker to answer any questions and ensure safety upon discharge. Assistance Coordinator spoke with patient's guardian over the phone during her hospitalization to speak about discharge planning and outpatient care. We also spoke about medications and different options available. Patient will be referred to [facility] program for closer follow up and tereso was given several days in anticipation of discharge to help arrange for placement and it was decided that she will try and get patient an aprtment and in the mean time a hotel/motel in [place]. Mental status exam: General Appearance: Patient appears to be stated age is alert, pleasant, and attempts to be cooperative. Patient is in no acute distress and has improved hygiene and grooming Behavior: Patient is calmly seated without any agitated behavior. Speech: Patient's speech is fluent and nonpressured. [place] Mood/Affect: Patient reports their mood is "better", affect is congruent Suicidality/Homicidality: Patient denies having any suicidal or homicidal ideation intent or plan. Perceptions: Patient denies any auditory or visual hallucinations. Though content/process: There is no evidence of any delusional thought content and thought process is linear and goal-directed. Memory and concentration: AOX3, grossly intact for the purposes of this session. Can spell "WORLD" backwards correctly. Judgment and insight: chronically poor, however has improved with guarded prognosis Impression: Schizophrenia Cannabis use disorder mild Nicotine dependence Plan: -Continue with discharge today as patient has improved and stabilized psychiatrically and is not currently an imminent threat to herself and/or others . Patient will remain at chronically elevated risk for harm to self and/or others due to her impulsivity and chronically poor insight/judgment. -Continue medications: Clozapine 25 mg daily +200 mg daily at bedtime for psychosis/mood stabilization. Trazodone 50 mg daily at bedtime when necessary for insomnia. -Patient was counseled on the need for medication compliance and appropriate follow-up at mental health and also primary care for medical issues. Patient verbalized understanding and agreed. -Social work to arrange for and conduct family meeting to ensure safety upon discharge and answer any questions/concerns. Social work also to arrange for patients follow up appointments with [facility] for psychiatric care along with follow up with primary care provider. -Patient counseled on abstaining from recreational drugs and marijuana and alcohol. Was informed/educated on the adverse effects on their physical and mental health. Patient verbally agreed and understood. -Patient was instructed to return to the hospital or seek immediate medical care if their psychiatric or medical symptoms do worsen or reoccur. Allergies Allergy/AdvReac Type Severity Reaction Status Date / Time No Known Allergies Allergy Verified 10/19/21 11:04 Laboratory Results WBC 11.5 k/uL (3.8-10.6) H 10/30/21 07:56 RBC 4.64 m/uL (3.80-5.40) 10/30/21 07:56 Hgb 15.2 gm/dL (11.4-16.0) 10/30/21 07:56 Hct 45.6 % (34.0-46.0) 10/30/21 07:56 MCV 98.3 fL (80.0-100.0) 10/30/21 07:56 MCH 32.8 pg (25.0-35.0) 10/30/21 07:56 MCHC 33.3 g/dL (31.0-37.0) 10/30/21 07:56 RDW 13.1 % (11.5-15.5) 10/30/21 07:56 Plt Count 299 k/uL (150-450) 10/30/21 07:56 MPV 7.9 10/30/21 07:56 Neutrophils % 61 % 10/30/21 07:56 Lymphocytes % 31 % 10/30/21 07:56 Monocytes % 5 % 10/30/21 07:56 Eosinophils % 0 % 10/30/21 07:56 Basophils % 0 % 10/30/21 07:56 Neutrophils # 7.0 k/uL (1.3-7.7) 10/30/21 07:56 Lymphocytes # 3.6 k/uL (1.0-4.8) 10/30/21 07:56 Monocytes # 0.6 k/uL (0-1.0) 10/30/21 07:56 Eosinophils # 0.0 k/uL (0-0.7) 10/30/21 07:56 Basophils # 0.0 k/uL (0-0.2) 10/30/21 07:56 Sodium 137 mmol/L (137-145) 10/25/21 12:00 Potassium 4.2 mmol/L (3.5-5.1) 10/25/21 12:00 Chloride 105 mmol/L (98-107) 10/25/21 12:00 Carbon Dioxide 23 mmol/L (22-30) 10/25/21 12:00 Anion Gap 9 mmol/L 10/25/21 12:00 BUN 11 mg/dL (7-17) 10/25/21 12:00 Creatinine 0.83 mg/dL (0.52-1.04) 10/25/21 12:00 Est GFR (CKD-EPI)AfAm >90 (>60 ml/min/1.73 sqM) 10/25/21 12:00 Est GFR (CKD-EPI)NonAf 85 (>60 ml/min/1.73 sqM) 10/25/21 12:00 Glucose 93 mg/dL (74-99) 10/25/21 12:00 Calcium 9.6 mg/dL (8.4-10.2) 10/25/21 12:00 Urine Opiates Screen Not Detected (NotDetected) 10/18/21 22:19 Ur Oxycodone Screen Not Detected (NotDetected) 10/18/21 22:19 Urine Methadone Screen Not Detected (NotDetected) 10/18/21 22:19 Ur Propoxyphene Screen Not Detected (NotDetected) 10/18/21 22:19 Ur Barbiturates Screen Not Detected (NotDetected) 10/18/21 22:19 U Tricyclic Antidepress Not Detected (NotDetected) 10/18/21 22:19 Ur Phencyclidine Scrn Not Detected (NotDetected) 10/18/21 22:19 Ur Amphetamines Screen Not Detected (NotDetected) 10/18/21 22:19 U Methamphetamines Scrn Not Detected (NotDetected) 10/18/21 22:19 U Benzodiazepines Scrn Not Detected (NotDetected) 10/18/21 22:19 Urine Cocaine Screen Not Detected (NotDetected) 10/18/21 22:19 U Marijuana (THC) Screen Not Detected (NotDetected) 10/18/21 22:19 Coronavirus (PCR) Not Detected (Not Detectd) 10/19/21 00:21 Vital Signs Temp 97.2 F L 10/30/21 20:51 Pulse 109 H 10/31/21 09:17 Resp 16 10/30/21 20:51 BP 103/62 10/31/21 09:17 Pulse Ox 99 10/29/21 08:32 Patient Condition at Discharge: Stable Plan - Discharge Summary Discharge Rx Participant: No New Discharge Prescriptions: New cloZAPine [Clozaril] 200 mg PO HS 14 Days tab cloZAPine [Clozaril] 25 mg PO DAILY 14 Days tab traZODone HCL [Desyrel] 50 mg PO HS PRN 14 Days tab PRN Reason: Insomnia Continue Nicotine 14Mg/24Hr Patch [Habitrol] 1 patch TRANSDERM DAILY 14 Days patch Discontinued Paliperidone [Invega] 3 mg PO HS #30 tablet traZODone HCL [Desyrel] 50 mg PO HS PRN #30 tab PRN Reason: Insomnia Discharge Medication List Nicotine 14Mg/24Hr Patch [Habitrol] 1 patch TRANSDERM DAILY 14 Days patch 10/31/21 [Rx] cloZAPine [Clozaril] 25 mg PO DAILY 14 Days tab 10/31/21 [Rx] cloZAPine [Clozaril] 200 mg PO HS 14 Days tab 10/31/21 [Rx] traZODone HCL [Desyrel] 50 mg PO HS PRN 14 Days tab 10/31/21 [Rx] Follow up Appointment(s)/Referral(s): None,Stated [Primary Care Provider] - 1-2 days Activity/Diet/Wound Care/Special Instructions: Activity and diet as tolerated. Avoid the use of street drugs and alcohol. Take all medications as prescribed. When you are in need of refills on your medicat ions please contact your medical provider and/or outpatient psychiatrist to have this done. Please go to scheduled outpatient appointment for aftercare treatment. If symptoms return or become worse, call the crisis line at and/or go to the nearest emergency room for evaluation Discharge Disposition: HOME SELF-CARE
[2021-10-31 13:32] VITALS: BMI 24.9
[2021-10-31] MEDS ORDERED: cloZAPine 100 MG TAB PO SCH (21:00)
== END 2021-10-31 17:50 | disposition home or self-care (01) | DRG 885 ==
LOC: EC 22:06 → EEVIPCON 22:06 → 3MHU 10-19 01:26
PROVIDERS: ADMIT Psychiatry & Neurology Psychiatry; ATTEND Psychiatry & Neurology Psychiatry
DX: F20.9 Schizophrenia, unspecified (principal); R45.851 Suicidal ideations; F12.10 Cannabis abuse, uncomplicated; Z71.6 Tobacco abuse counseling; F17.210 Nicotine dependence, cigarettes, uncomplicated; Z59.00 Homelessness unspecified; Z71.51 Drug abuse counseling and surveillance of drug abuser; T43.596A Underdosing of other antipsychotics and neuroleptics, initial encounter; F41.9 Anxiety disorder, unspecified; G47.00 Insomnia, unspecified; Z79.899 Other long term (current) drug therapy; Z91.128 Patient's intentional underdosing of medication regimen for other reason; Z20.822 Contact with and (suspected) exposure to COVID-19; Z98.890 Other specified postprocedural states
CPT/HCPCS: 80048; 80306; 82075; 85025; 87635; 99285

== ENCOUNTER 2021-11-27 19:01 | Inpatient (IN) | payer MEDICARE ==
--- NOTE | 2021-11-27 19:37 | ED ---
Psych HPI - General Chief Complaint: Psychiatric Symptoms Stated Complaint: mental health Time Seen by Provider: 11/27/21 19:10 Source: patient, police, RN notes reviewed Mode of arrival: ambulatory - History of Present Illness Initial Comments: 46-year-old female history of psychosis brought in on a pickup order for noncompliance with medications she apparently thinks she get 2 weeks ago she's had delusional thoughts apparently no suicidal or homicidal thoughts mikael lemus MD Complaint: other - Related Data Previous Rx's Medication Instructions Recorded Divalproex [Depakote] 750 mg PO HS 30 Days tablet 12/12/21 fluPHENAZine decanoate [Prolixin 25 mg IM Q21D #1 each 12/12/21 Decanoate] Allergies Allergy/AdvReac Type Severity Reaction Status Date / Time No Known Allergies Allergy Verified 11/28/21 18:22 Review of Systems ROS Statement: Those systems with pertinent positive or pertinent negative responses have been documented in the HPI. ROS Other: All systems not noted in ROS Statement are negative. Past Medical History Past Medical History: No Reported History History of Any Multi-Drug Resistant Organisms: None Reported Past Surgical History: Ear Surgery Past Anesthesia/Blood Transfusion Reactions: No Reported Reaction Past Psychological History: No Psychological Hx Reported Smoking Status: Current some day smoker Past Alcohol Use History: Occasional Past Drug Use History: None Reported - Past Family History Family Family Medical History: No Reported History General Exam - General Exam Comments Initial Comments: This is a well-developed well-nourished awake alert oriented 3 female Limitations: no limitations General appearance: alert, anxious Head exam: Present: atraumatic, normocephalic, normal inspection Eye exam: Present: normal appearance, PERRL, EOMI. Absent: scleral icterus, conjunctival injection, periorbital swelling ENT exam: Present: normal exam, mucous membranes moist Neck exam: Present: normal inspection. Absent: tenderness, meningismus, lymphadenopathy Respiratory exam: Present: normal lung sounds bilaterally. Absent: respiratory distress, wheezes, rales, rhonchi, stridor Cardiovascular Exam: Present: regular rate, normal rhythm, normal heart sounds. Absent: systolic murmur, diastolic murmur, rubs, gallop, clicks GI/Abdominal exam: Present: soft, normal bowel sounds. Absent: distended, tenderness, guarding, rebound, rigid Extremities exam: Present: normal inspection, full ROM, normal capillary refill. Absent: tenderness, pedal edema, joint swelling, calf tenderness Back exam: Present: normal inspection Neurological exam: Present: alert, oriented X3, CN II-XII intact Psychiatric exam: Present: anxious, flat affect Skin exam: Present: warm, dry, intact, normal color. Absent: rash Course Vital Signs 11/27/21 11/28/21 19:08 05:09 Temperature 97.9 F Pulse Rate 94 89 Respiratory 18 16 Rate Blood Pressure 125/76 133/76 O2 Sat by Pulse 96 95 Oximetry - Reevaluation(s) Reevaluation #1: 11/27/21 22:41 The patient is pending EPS evaluation and will be endorsed to Dr. Castro at our shift change Medical Decision Making - Medical Decision Making Patient reexamined sinus at Dr. Castro at her shift change pending EPS evaluation patient was ultimately admitted for inpatient evaluation and treatment - Lab Data Result diagrams: 11/28/21 01:33 12/11/21 12:23 Lab Results 11/28/21 11/28/21 11/28/21 Range/Units 01:33 01:33 01:33 WBC 11.6 H (3.8-10.6) k/uL RBC 4.41 (3.80-5.40) m/uL Hgb 14.6 (11.4-16.0) gm/dL Hct 41.9 (34.0-46.0) % MCV 95.0 (80.0-100.0) fL MCH 33.1 (25.0-35.0) pg MCHC 34.8 (31.0-37.0) g/dL RDW 12.6 (11.5-15.5) % Plt Count 310 (150-450) k/uL MPV 7.5 Neutrophils % 66 % Lymphocytes % 25 % Monocytes % 5 % Eosinophils % 1 % Basophils % 1 % Neutrophils # 7.7 (1.3-7.7) k/uL Lymphocytes # 3.0 (1.0-4.8) k/uL Monocytes # 0.6 (0-1.0) k/uL Eosinophils # 0.1 (0-0.7) k/uL Basophils # 0.1 (0-0.2) k/uL Sodium (137-145) mmol/L Potassium (3.5-5.1) mmol/L Chloride (98-107) mmol/L Carbon Dioxide (22-30) mmol/L Anion Gap mmol/L BUN (7-17) mg/dL Creatinine (0.52-1.04) mg/dL Est GFR (CKD-EPI)AfAm (>60 ml/min/1.73 sqM) Est GFR (CKD-EPI)NonAf (>60 ml/min/1.73 sqM) Glucose (74-99) mg/dL Estimated Ave Glu mg/dL Hemoglobin A1c (0.0-6.0) % Calcium (8.4-10.2) mg/dL Triglycerides (0.00-149.00) mg/dL Cholesterol (0.00-200.00) mg/dL LDL Cholesterol, Calc (0.0-131.0) mg/dL VLDL Cholesterol, Calc (5.00-40.00) mg/dL HDL Cholesterol (40.00-60.00) mg/dL Cholesterol/HDL Ratio Ratio TSH (0.465-4.680) mIU/L Urine Color Light Yellow Urine Appearance Clear (Clear) Urine pH 6.5 (5.0-8.0) Ur Specific [place] 1.006 (1.001-1.035) Urine Protein Negative (Negative) Urine Glucose (UA) Negative (Negative) Urine Ketones 2+ H (Negative) Urine Blood Negative (Negative) Urine Nitrite Negative (Negative) Urine Bilirubin Negative (Negative) Urine Urobilinogen <2.0 (<2.0) mg/dL Ur Leukocyte Esterase Trace H (Negative) Urine RBC 1 (0-5) /hpf Urine WBC 6 H (0-5) /hpf Ur Squamous Epith Cells 6 H (0-4) /hpf Amorphous Sediment Rare H (None) /hpf Urine Bacteria Rare H (None) /hpf Urine HCG, Qual (Not Detectd) Urine Opiates Screen Not Detected (NotDetected) Ur Oxycodone Screen Not Detected (NotDetected) Urine Methadone Screen Not Detected (NotDetected) Ur Propoxyphene Screen Not Detected (NotDetected) Ur Barbiturates Screen Not Detected (NotDetected) U Tricyclic Antidepress Not Detected (NotDetected) Ur Phencyclidine Scrn Not Detected (NotDetected) Ur Amphetamines Screen Not Detected (NotDetected) U Methamphetamines Scrn Not Detected (NotDetected) U Benzodiazepines Scrn Not Detected (NotDetected) Urine Cocaine Screen Not Detected (NotDetected) U Marijuana (THC) Screen Not Detected (NotDetected) Coronavirus (PCR) (Not Detectd) 11/28/21 11/28/21 11/28/21 Range/Units 01:33 01:33 01:33 WBC (3.8-10.6) k/uL RBC (3.80-5.40) m/uL Hgb (11.4-16.0) gm/dL Hct (34.0-46.0) % MCV (80.0-100.0) fL MCH (25.0-35.0) pg MCHC (31.0-37.0) g/dL RDW (11.5-15.5) % Plt Count (150-450) k/uL MPV Neutrophils % % Lymphocytes % % Monocytes % % Eosinophils % % Basophils % % Neutrophils # (1.3-7.7) k/uL Lymphocytes # (1.0-4.8) k/uL Monocytes # (0-1.0) k/uL Eosinophils # (0-0.7) k/uL Basophils # (0-0.2) k/uL Sodium 129 L (137-145) mmol/L Potassium 4.1 (3.5-5.1) mmol/L Chloride 100 (98-107) mmol/L Carbon Dioxide 18 L (22-30) mmol/L Anion Gap 11 mmol/L BUN 7 (7-17) mg/dL Creatinine 0.67 (0.52-1.04) mg/dL Est GFR (CKD-EPI)AfAm >90 (>60 ml/min/1.73 sqM) Est GFR (CKD-EPI)NonAf >90 (>60 ml/min/1.73 sqM) Glucose 94 (74-99) mg/dL Estimated Ave Glu mg/dL 99 Hemoglobin A1c 5.1 (0.0-6.0) % Calcium 9.2 (8.4-10.2) mg/dL Triglycerides (0.00-149.00) mg/dL Cholesterol (0.00-200.00) mg/dL LDL Cholesterol, Calc (0.0-131.0) mg/dL VLDL Cholesterol, Calc (5.00-40.00) mg/dL HDL Cholesterol (40.00-60.00) mg/dL Cholesterol/HDL Ratio Ratio TSH (0.465-4.680) mIU/L Urine Color Urine Appearance (Clear) Urine pH (5.0-8.0) Ur Specific [place] (1.001-1.035) Urine Protein (Negative) Urine Glucose (UA) (Negative) Urine Ketones (Negative) Urine Blood (Negative) Urine Nitrite (Negative) Urine Bilirubin (Negative) Urine Urobilinogen (<2.0) mg/dL Ur Leukocyte Esterase (Negative) Urine RBC (0-5) /hpf Urine WBC (0-5) /hpf Ur Squamous Epith Cells (0-4) /hpf Amorphous Sediment (None) /hpf Urine Bacteria (None) /hpf Urine HCG, Qual Not Detected (Not Detectd) Urine Opiates Screen (NotDetected) Ur Oxycodone Screen (NotDetected) Urine Methadone Screen (NotDetected) Ur Propoxyphene Screen (NotDetected) Ur Barbiturates Screen (NotDetected) U Tricyclic Antidepress (NotDetected) Ur Phencyclidine Scrn (NotDetected) Ur Amphetamines Screen (NotDetected) U Methamphetamines Scrn (NotDetected) U Benzodiazepines Scrn (NotDetected) Urine Cocaine Screen (NotDetected) U Marijuana (THC) Screen (NotDetected) Coronavirus (PCR) (Not Detectd) 11/28/21 11/28/21 Range/Units 01:33 02:37 WBC (3.8-10.6) k/uL RBC (3.80-5.40) m/uL Hgb (11.4-16.0) gm/dL Hct (34.0-46.0) % MCV (80.0-100.0) fL MCH (25.0-35.0) pg MCHC (31.0-37.0) g/dL RDW (11.5-15.5) % Plt Count (150-450) k/uL MPV Neutrophils % % Lymphocytes % % Monocytes % % Eosinophils % % Basophils % % Neutrophils # (1.3-7.7) k/uL Lymphocytes # (1.0-4.8) k/uL Monocytes # (0-1.0) k/uL Eosinophils # (0-0.7) k/uL Basophils # (0-0.2) k/uL Sodium (137-145) mmol/L Potassium (3.5-5.1) mmol/L Chloride (98-107) mmol/L Carbon Dioxide (22-30) mmol/L Anion Gap mmol/L BUN (7-17) mg/dL Creatinine (0.52-1.04) mg/dL Est GFR (CKD-EPI)AfAm (>60 ml/min/1.73 sqM) Est GFR (CKD-EPI)NonAf (>60 ml/min/1.73 sqM) Glucose (74-99) mg/dL Estimated Ave Glu mg/dL Hemoglobin A1c (0.0-6.0) % Calcium (8.4-10.2) mg/dL Triglycerides 68.40 (0.00-149.00) mg/dL Cholesterol 176.00 (0.00-200.00) mg/dL LDL Cholesterol, Calc 98.3 (0.0-131.0) mg/dL VLDL Cholesterol, Calc 13.68 (5.00-40.00) mg/dL HDL Cholesterol 64.00 H (40.00-60.00) mg/dL Cholesterol/HDL Ratio 2.75 Ratio TSH 4.030 (0.465-4.680) mIU/L Urine Color Urine Appearance (Clear) Urine pH (5.0-8.0) Ur Specific [place] (1.001-1.035) Urine Protein (Negative) Urine Glucose (UA) (Negative) Urine Ketones (Negative) Urine Blood (Negative) Urine Nitrite (Negative) Urine Bilirubin (Negative) Urine Urobilinogen (<2.0) mg/dL Ur Leukocyte Esterase (Negative) Urine RBC (0-5) /hpf Urine WBC (0-5) /hpf Ur Squamous Epith Cells (0-4) /hpf Amorphous Sediment (None) /hpf Urine Bacteria (None) /hpf Urine HCG, Qual (Not Detectd) Urine Opiates Screen (NotDetected) Ur Oxycodone Screen (NotDetected) Urine Methadone Screen (NotDetected) Ur Propoxyphene Screen (NotDetected) Ur Barbiturates Screen (NotDetected) U Tricyclic Antidepress (NotDetected) Ur Phencyclidine Scrn (NotDetected) Ur Amphetamines Screen (NotDetected) U Methamphetamines Scrn (NotDetected) U Benzodiazepines Scrn (NotDetected) Urine Cocaine Screen (NotDetected) U Marijuana (THC) Screen (NotDetected) Coronavirus (PCR) Not Detected (Not Detectd) Disposition Clinical Impression: Acute psychosis Disposition: TRANSFER TO PSYCH HOSP/UNIT Condition: Fair
[2021-11-28 02:15] LABS: Basophils # (A) 0.1 k/uL (0-0.2); Basophils % (A) 1 %; Eosinophils # (A) 0.1 k/uL (0-0.7); Eosinophils % (A) 1 %; HCT 41.9 % (34.0-46.0); HGB 14.6 gm/dL (11.4-16.0); Lymphocytes % (A) 25 %; MCH 33.1 pg (25.0-35.0); MCHC 34.8 g/dL (31.0-37.0); Mean Platelet Volume 7.5; Monocytes # (A) 0.6 k/uL (0-1.0); Monocytes % (A) 5 %; Neutrophils # (A) 7.7 k/uL (1.3-7.7); Neutrophils % (A) 66 %; Platelet Count 310 k/uL (150-450); RBC 4.41 m/uL (3.80-5.40); RDW 12.6 % (11.5-15.5); WBC 11.6 k/uL (3.8-10.6)
[2021-11-28 02:20] LABS: Amorphous Sediment,Urine Rare /hpf; Appearance,Urine Clear (Clear); Bacteria,Urine Rare /hpf; Bilirubin,Urine Negative (Negative); Blood,Urine Negative (Negative); Color,Urine Light Yellow; Glucose,Urine (UA) Negative (Negative); Ketones,Urine 2+ (Negative); Leukocyte Esterase,Urine Trace (Negative); Nitrite,Urine Negative (Negative); PH, Urine 6.5 (5.0-8.0); Protein,Urine Negative (Negative); RBC,Urine 1 /hpf (0-5); Specific Gravity,Urine 1.006 (1.001-1.035); Squamous Epithelial Cell,Urine 6 /hpf (0-4); Urobilinogen,Urine <2.0 mg/dL (<2.0); WBC,Urine 6 /hpf (0-5)
[2021-11-28 02:25] LABS: African American GFR (CKD) >90 (>60 ml/min/1.73 sqM); Anion Gap 11 mmol/L; Blood Urea Nitrogen 7 mg/dL (7-17); Calcium 9.2 mg/dL (8.4-10.2); Carbon Dioxide 18 mmol/L (22-30); Chloride 100 mmol/L (98-107); Glucose 94 mg/dL (74-99); Non-African American GFR(CKD) >90 (>60 ml/min/1.73 sqM); Potassium 4.1 mmol/L (3.5-5.1); Sodium 129 mmol/L (137-145)
[2021-11-28 02:34] LABS: Amphetamine Screen,Urine Not Detected (NotDetected); Barbiturate Screen,Urine Not Detected (NotDetected); Benzodiazepines Screen,Urine Not Detected (NotDetected); Cocaine Screen,Urine Not Detected (NotDetected); Methadone Screen, Urine Not Detected (NotDetected); Opiate Screen,Urine Not Detected (NotDetected); Oxycodone Screen, Urine Not Detected (NotDetected); Phencyclidine Screen,Urine Not Detected (NotDetected); Tricyclic Antidepressant,Urine Not Detected (NotDetected); Urn Cannabinoid Scrn Not Detected (NotDetected)
[2021-11-28 05:10] VITALS: RESP 16
[2021-11-28] MEDS ORDERED: MAGNESIUM HYDROXIDE 2,400 MG/10 ML CUP PO PRN (17:31)
[2021-11-28] MEDS ORDERED: MAG HYDROX/AL HYDROX/SIMETH 30 ML CUP PO PRN (17:31)
[2021-11-28] MEDS ORDERED: LORazepam 1 MG TAB PO PRN (17:31)
[2021-11-28] MEDS ORDERED: HALOPERIDOL LACTATE 5 MG/ML 1 ML VIAL IM PRN (17:31)
[2021-11-28] MEDS ORDERED: ACETAMINOPHEN TAB 325 MG TAB PO PRN (17:31)
[2021-11-28] MEDS ORDERED: LORazepam 2 MG/ML INJ IM PRN (17:36)
--- NOTE | 2021-11-29 02:32 | P.MDCNMH ---
History of Present Illness H&P Date: 11/28/21 Chief Complaint: medical eval 46 year old female denies any medical history patient was brought in due to non compliance with meds, she is having delusional thoughts. she denies any medical concerns at this time, no fever, chills, chest pain , headache, nausea or vomiting, abd pain or GI bleeding Review of Systems Pertinent positives as noted in HPI. All other systems were reviewed and are negative Past Medical History Past Medical History: No Reported History History of Any Multi-Drug Resistant Organisms: None Reported Past Surgical History: Ear Surgery Past Anesthesia/Blood Transfusion Reactions: No Reported Reaction Past Psychological History: No Psychological Hx Reported Smoking Status: Current some day smoker Past Alcohol Use History: Occasional Past Drug Use History: None Reported - Past Family History Family Family Medical History: No Reported History Medications and Allergies Home Medications Medication Instructions Recorded Confirmed Type traZODone HCL [Desyrel] 50 mg PO HS PRN 14 Days tab 10/31/21 11/28/21 Rx LORazepam [Ativan] 1 mg PO BID PRN 11/28/21 11/28/21 History cloZAPine [Clozaril] 50 mg PO DAILY 11/28/21 11/28/21 History cloZAPine [Clozaril] 300 mg PO DAILY 11/28/21 11/28/21 History Allergies Allergy/AdvReac Type Severity Reaction Status Date / Time No Known Allergies Allergy Verified 11/28/21 18:22 Physical Exam Vitals: Vital Signs Temp Pulse Pulse Resp BP BP Pulse Ox 11/28/21 18:13 98.3 F 94 16 109/66 11/28/21 05:09 89 16 133/76 95 Intake and Output 11/28/21 11/28/21 11/29/21 14:59 22:59 06:59 Other: Weight 65.771 kg Constitutional: No acute distress, conversant, pleasant Eyes: Anicteric sclerae, moist conjunctiva, Pupils equal round reactive to light ENMT: NC/AT Oropharynx clear, no erythema, or exudates Neck: Supple, FROM, no masses, or JVD No carotid bruits No thyromegaly Lungs: Clear to auscultation Clear to percussion Normal respiratory effort, no accessory muscle use Cardiovascular: Heart regular in rate and rhythm, No murmurs, gallops, or rubs No peripheral edema Abdominal: Soft Nontender, no guarding, rebound or rigidity Abdomen moving with respiration Normoactive bowel sounds No hepatomegaly, No splenomegaly No palpable mass No abdominal wall hernia noted Skin: Normal temperature, tone, texture, turgor No induration No subcutaneous nodules No rash, lesions No ulcers Extremities: No digital cyanosis No clubbing Pedal pulses intact and symmetrical Radial pulses intact and symmetrical No calf tenderness Psychiatric: Alert and oriented to person, place and time Neuro Muscles Strength 5/5 in all 4 extremities Sensation to light touch grossly present throughout Cranial nerves II-XII grossly intact No focal sensory deficits Lymphatics: no palpable cervical or supraclavicular , or inguinal lymph nodes Cranial Nerve Examination - Cranial Nerves Cranial Nerve II- Optic: Intact Cranial Nerve III- Oculomotor: Intact Cranial Nerve IV- Trochlear: Intact Cranial Nerve V- Trigeminal: Intact Cranial Nerve - Abducens: Intact Cranial Nerve VII- Facial: Intact Cranial Nerve VIII- Auditory: Intact Cranial Nerve IX- Glossopharyngeal: Intact Cranial Nerve X- Vagus: Intact Cranial Nerve XI- Accessory: Intact Cranial Nerve XII- Hypoglossal: Intact Results CBC & Chem 7: 11/28/21 01:33 11/28/21 01:33 Labs: Abnormal Lab Results - Last 24 Hours (Table) 11/28/21 11/28/21 Range/Units 01:33 01:33 Sodium 129 L (137-145) mmol/L Carbon Dioxide 18 L (22-30) mmol/L Urine Ketones 2+ H (Negative) Ur Leukocyte Esterase Trace H (Negative) Urine WBC 6 H (0-5) /hpf Ur Squamous Epith Cells 6 H (0-4) /hpf Amorphous Sediment Rare H (None) /hpf Urine Bacteria Rare H (None) /hpf Assessment and Plan Assessment: delusional thoughts medical non compliance management per psych hyponatremia possibly secondary to decrease PO intake recheck in AM follow up labs medically stable Thank you for allowing us to participate in the care of this patient. We will follow peripherally. Do not hesitate to contact us with questions. Someone can be reached from the [facility] hospitalist group at all hours of the day at [phone].
[2021-11-29] MEDS: NICOTINE 14MG/24HR PATCH TRANSDERM SCH (08:18)
[2021-11-29] MEDS ORDERED: cloZAPine 100 MG TAB PO SCH (09:00)
[2021-11-29] MEDS ORDERED: CLOZAPINE 50 MG PO SCH (09:00)
[2021-11-29] MEDS ORDERED: flUPHENAZine 2.5 MG/ML (MDV) 10 ML VIAL IM PRN (11:11)
[2021-11-29] MEDS ORDERED: BENZTROPINE MESYLATE 0.5 MG TAB PO PRN (11:11)
--- NOTE | 2021-11-29 11:13 | P.HP ---
Psychiatric H&P - . H&P Date: 11/29/21 History & Physical: Allergies Allergy/AdvReac Type Severity Reaction Status Date / Time No Known Allergies Allergy Verified 11/28/21 18:22 Vital Signs Temp 98.3 F 11/28/21 18:13 Pulse 94 11/28/21 18:13 Resp 16 11/28/21 18:13 BP 109/66 11/28/21 18:13 Pulse Ox 95 11/28/21 05:09 Intake & Output 11/28/21 11/29/21 11/29/21 18:59 06:59 18:59 Weight 65.771 kg Laboratory Last Values WBC 11.6 k/uL (3.8-10.6) H 11/28/21 01:33 RBC 4.41 m/uL (3.80-5.40) 11/28/21 01:33 Hgb 14.6 gm/dL (11.4-16.0) 11/28/21 01:33 Hct 41.9 % (34.0-46.0) 11/28/21 01:33 MCV 95.0 fL (80.0-100.0) 11/28/21 01:33 MCH 33.1 pg (25.0-35.0) 11/28/21 01:33 MCHC 34.8 g/dL (31.0-37.0) 11/28/21 01:33 RDW 12.6 % (11.5-15.5) 11/28/21 01:33 Plt Count 310 k/uL (150-450) 11/28/21 01:33 MPV 7.5 11/28/21 01:33 Neutrophils % 66 % 11/28/21 01:33 Lymphocytes % 25 % 11/28/21 01:33 Monocytes % 5 % 11/28/21 01:33 Eosinophils % 1 % 11/28/21 01:33 Basophils % 1 % 11/28/21 01:33 Neutrophils # 7.7 k/uL (1.3-7.7) 11/28/21 01:33 Lymphocytes # 3.0 k/uL (1.0-4.8) 11/28/21 01:33 Monocytes # 0.6 k/uL (0-1.0) 11/28/21 01:33 Eosinophils # 0.1 k/uL (0-0.7) 11/28/21 01: Basophils # 0.1 k/uL (0-0.2) 11/28/21 01:33 Sodium 129 mmol/L (137-145) L 11/28/21 01: Potassium 4.1 mmol/L (3.5-5.1) 11/28/21 01: Chloride 100 mmol/L (98-107) 11/28/21 01: Carbon Dioxide 18 mmol/L (22-30) L 11/28/21 01: Anion Gap 11 mmol/L 11/28/21 01:33 BUN 7 mg/dL (7-17) 11/28/21 01: Creatinine 0.67 mg/dL (0.52-1.04) 11/28/21 01:33 Est GFR (CKD-EPI)AfAm >90 (>60 ml/min/1.73 sqM) 11/28/21 01: Est GFR (CKD-EPI)NonAf >90 (>60 ml/min/1.73 sqM) 11/28/21 01:33 Glucose 94 mg/dL (74-99) 11/28/21 01: Calcium 9.2 mg/dL (8.4-10.2) 11/28/21 01: TSH 4.030 mIU/L (0.465-4.680) 11/28/21 01:33 Urine Color Light Yellow 11/28/21 01: Urine Appearance Clear (Clear) 11/28/21 01: Urine pH 6.5 (5.0-8.0) 11/28/21 01: Ur Specific Dexter 1.006 (1.001-1.035) 11/28/21 01: Urine Protein Negative (Negative) 11/28/21 01: Urine Glucose (UA) Negative (Negative) 11/28/21 01: Urine Ketones 2+ (Negative) H 11/28/21 01: Urine Blood Negative (Negative) 11/28/21 01: Urine Nitrite Negative (Negative) 11/28/21 01: Urine Bilirubin Negative (Negative) 11/28/21 01: Urine Urobilinogen <2.0 mg/dL (<2.0) 11/28/21 01: Ur Leukocyte Esterase Trace (Negative) H 11/28/21 01:33 Urine RBC 1 /hpf (0-5) 11/28/21 01:33 Urine WBC 6 /hpf (0-5) H 11/28/21 01:33 Ur Squamous Epith Cells 6 /hpf (0-4) H 11/28/21 01:33 Amorphous Sediment Rare /hpf (None) H 11/28/21 01:33 Urine Bacteria Rare /hpf (None) H 11/28/21 01:33 Urine HCG, Qual Not Detected (Not Detectd) 11/28/21 01:33 Urine Opiates Screen Not Detected (NotDetected) 11/28/21 01:33 Ur Oxycodone Screen Not Detected (NotDetected) 11/28/21 01:33 Urine Methadone Screen Not Detected (NotDetected) 11/28/21 01:33 Ur Propoxyphene Screen Not Detected (NotDetected) 11/28/21 01:33 Ur Barbiturates Screen Not Detected (NotDetected) 11/28/21 01:33 U Tricyclic Antidepress Not Detected (NotDetected) 11/28/21 01:33 Ur Phencyclidine Scrn Not Detected (NotDetected) 11/28/21 01:33 Ur Amphetamines Screen Not Detected (NotDetected) 11/28/21 01:33 U Methamphetamines Scrn Not Detected (NotDetected) 11/28/21 01:33 U Benzodiazepines Scrn Not Detected (NotDetected) 11/28/21 01:33 Urine Cocaine Screen Not Detected (NotDetected) 11/28/21 01:33 U Marijuana (THC) Screen Not Detected (NotDetected) 11/28/21 01:33 Coronavirus (PCR) Not Detected (Not Detectd) 11/28/21 02:37 11/29/21 10:31 IDENTIFYING DATA: Patient is a 46-year-old female who has no kids. e claims that she works at [employer]. Her sister is her guardian. History of chronic schizophrenia. HPI: Patient presented to the hospital yesterday on a pickup order after recently being discharged from [facility]. Patient is on a current court order for mental health treatment in this [facility]. Patient had 2 previous psychiatric hospitalizations and [facility] with her last hospitalization being on October 2021. Patient at that time was given Invega Sustenna and due to ineffectiveness was transitioned onto clozapine. Patient has a chronically poor insight and judgment and minimal insight into her illness. Patient apparently had severe delusions and paranoia upon arrival and was admitted involuntarily to the mental health unit. Patient was seen by sign writer hand in her room as she was laying in her bed and was agreeable to speak to sign writer hand in the office. Patient appeared to be very irritable with the sign writer hand today and argumentative. She had poor hygiene and grooming. She claims that her dropped her off at the hospital. She states that she is in the area "looking for terrorists" and that she works for the [employer]. She also states that she was employed by [employer] and claims that "if you don't believe me I have his cell phone number you can call him". She was very impulsive and was offended by sign writer hand immediately and states that "I dont have to take this, I want a new doctor, youre a fraud". She walked away from sign writer hand in the office and slammed the door loudly. Unable to assess Ah or Vh at this time and denies any si or Hi. Patient has a history of smoking cigarettes and marijuana however her UDS on this visit is negative. PAST PSYCHIATRIC HISTORY: Patient has history of schizophrenia. She claims that she has been on several different medications in the past including Risperdal and clozapine. She claims that she has been hospitalized several times in the past. She has 2 previous admissions at [facility]. Her last hospitalization was in early October 2021. Patient was also recently psychiatrically hospitalized at [facility] and discharged on 11/25. She claims that she does have a psychiatrist in [place] however did not give the name. Patient denies any history of suicide attempts in the past. PMH: As per medicine note ALLERGIES: as per EMR CHEMICAL DEPENDENCY HISTORY: as per HPI FAMILY PSYCHIATRIC/SUBSTANCE USE HISTORY: denies SOCIAL HISTORY: Patient was born and raised in [facility]. She states that she has a bachelor's degree in finance from [employer]. She claims that she has no kids. She states that she is . She claims that her residence is in a [facility] in [place]. She denies ever going to prison or [place] facility. MENTAL STATUS EXAM: General Appearance: Patient appears to be tall, disheveled hair, stated age is alert, defensive, paranoid and argumentative. Patient appears to have poor hygiene and grooming. Behavior: Patient is seated without any agitated behavior. Paranoid Speech: Patient's speech is fluent and nonpressured. [place]. Demanding Mood/Affect: Patient reports their mood is "fine", affect is incongruent and co nstricted. Suicidality/Homicidality: Unable to assess Perceptions: Unable to assess Though content/process: [place], poverty of content. Guarded/evasive. Paranoid. Delusional. Memory and concentration: AOX3, grossly intact for the purposes of this session. Can spell "WORLD" backwards Judgment and insight: Chronically poor STRENGTHS/WEAKNESSES: strength is that patient is resilient. Weakness is that patient has poor judgment, insight and is impulsive INTELLECT: average IMPRESSIONS: Schizophrenia Cannabis use disorder Nicotine dependence PLAN: -Patient is admitted under involuntary status to MHU for stabilization of psychiatric symptoms and safety. Patient has not signed medication consent and is placed in patient's chart. Patient is currently on a active court order for treatment. -Medications : Will start patient on Prolixin 2 mg twice a day for psychosis, plan to increase over the weekend as needed/tolerated. Prolixin IM as back up if patient refuses PO. Patient is not consistent with taking oral medications and will likely need to be transitioned back onto long-acting injection. Cogentin 0.5 mg twice a day when necessary for EPS prophylaxis. Trazodone 50 mg qhs when necessary for sleep. -Ativan and Haldol PRN for agitation/aggression -Patient was informed of the risks, benefits and side effects of the medication and patient refused to sign medication consent form. -Internal Medicine consult to perform medical evaluation and physical. -NRT - nicotine patch -SW on board for discharge planning. Encourage patient to participate in groups to work on coping skills. Patient is currently on active treatment order. Will need to transition patient onto long-acting injection part to discharge due to patient's noncompliance with treatment. 11/29/21 11:05 11/29/21 11:12
[2021-11-29 14:46] LABS: Chol/HDL Ratio 2.75 Ratio; LDL Cholesterol,Calculated 98.3 mg/dL (0.0-131.0); VLDL Calculation 13.68 mg/dL (5.00-40.00)
[2021-11-30] MEDS: NICOTINE 14MG/24HR PATCH TRANSDERM SCH (09:06)
[2021-11-30] MEDS: haloperidoL 5 MG TAB PO PRN (12:17)
[2021-12-01] MEDS: traZODone HCL 50 MG TAB PO PRN ×2 (03:29→21:13)
[2021-12-01] MEDS: NICOTINE 14MG/24HR PATCH TRANSDERM SCH (08:42)
[2021-12-01 09:34] LABS: African American GFR (CKD) >90 (>60 ml/min/1.73 sqM); Anion Gap 9 mmol/L; Blood Urea Nitrogen 6 mg/dL (7-17); Carbon Dioxide 23 mmol/L (22-30); Chloride 102 mmol/L (98-107); Glucose 82 mg/dL (74-99); Non-African American GFR(CKD) >90 (>60 ml/min/1.73 sqM); Potassium 4.3 mmol/L (3.5-5.1); Sodium 134 mmol/L (137-145)
[2021-12-01] MEDS: haloperidoL 5 MG TAB PO PRN (15:17)
--- NOTE | 2021-12-01 18:34 | P.PN ---
Progress Note - Text Progress Note Date: 12/01/21 Interval history: Patient was seen [wandering the hallways] and was directable and agreeable to speak with typewriter assembler. She states that she made up with her family and is doing "great" she denies paranoia, agitation, grandiosity. At this time patient denies any suicidal or homicidal ideations intent or plan. Denies any Auditory or visual hallucinations. Patient denies any side effects from the medications and has been compliant with meds. Mental status exam: General Appearance: [Patient appears to be stated age is alert, directable, and cooperative.] Behavior: [No agitated behavior. Patient is calm and directable] Speech: Patient's speech is fluent and nonpressured. Mood/Affect: Mood is improving, affect is congruent and constricted. Suicidality/Homicidality: Patient denies having any suicidal or homicidal ideation intent or plan. Perceptions: Patient denies any auditory or visual hallucinations. Though content/process: [There is no evidence of any delusional thought content and thought process is linear and goal-directed.] Memory and concentration: AOX3, grossly intact for the purposes of this session Judgment and insight: improving mildly Assessment/Plan: Continue with current diagnosis. Patient continues to meet criteria for inpatient psychiatric admission for symptom stabilization and safety.[Patient will be maintained on current psychotropic medication regimen.] Monitor for medication compliance and for any psychotropic medication side effects. Will continue to monitor ongoing response to treatment. Encouraged participation in milieu.
--- NOTE | 2021-12-01 18:34 | P.PN ---
Progress Note - Text Progress Note Date: 11/30/21 Interval history: Patient was seen [wandering the hallways] and was directable and agreeable to speak with health technical writer. Patient was very tearful when speaking with health technical writer. She states that she is upset that her father thinks that she is delusional. She states that her sister "put guardianship on me for no reason" and that there is "nothing wrong with me". She states that she does not have bipolar or schizophrenia, and all of the symptoms are there because she used acid. At this time patient denies any suicidal or homicidal ideations intent or plan. Denies any Auditory or visual hallucinations. She also denies any paranoia or grandiosity. Patient denies any side effects from the medications. Per nursing, she has been agitated and was trying to cheek her medications. Mental status exam: General Appearance: [Patient appears to be stated age is alert, directable, and cooperative.] Behavior: [No agitated behavior. Patient is calm and directable] Speech: Patient's speech is fluent and nonpressured. Mood/Affect: Dysthymic She is tearful during the interview Suicidality/Homicidality: Patient denies having any suicidal or homicidal ideation intent or plan. Perceptions: Patient denies any auditory or visual hallucinations. Though content/process: [There is no evidence of any delusional thought content and thought process is linear and goal-directed.] Memory and concentration: AOX3, grossly intact for the purposes of this session Judgment and insight: Poor Assessment/Plan: Continue with current diagnosis. Patient continues to meet criteria for inpatient psychiatric admission for symptom stabilization and safety.[Patient will be maintained on current psychotropic medication regimen.] Monitor for medication compliance and for any psychotropic medication side effects. Will continue to monitor ongoing response to treatment. Encouraged participation in milieu.
[2021-12-02 08:35] LABS: Clozapine (Clozaril) <25 ng/mL (200-700); Norclozapine <25 ng/mL (200-700)
[2021-12-02] MEDS: NICOTINE 14MG/24HR PATCH TRANSDERM SCH (08:43)
--- NOTE | 2021-12-02 11:20 | P.PN ---
Progress Note - Text Progress Note Date: 12/02/21 Interval History: Patient was seen resting in bed and was agreeable to speak with scientific technical writer in the office. Currently, the patient is endorsing significant psychotic symptoms including elevated paranoia and grandiosity. The patient believes that she is a member of the [employer]. Furthermore, the patient makes note that she has degrees from [employer], and [employer]. The patient vehemently denies the need for medications. She does not believe she is schizophrenic. She reports that she is currently admitted to the hospital because she is undergoing an investigation in order to protect her . She is otherwise not reporting any auditory or visual hallucinations. She is not reporting any suicidal or homicidal ideation, intention, and/or plan. She has been noted by staff to attempt to "cheek" her medications. Mental Status Exam: General Appearance: Patient appears to be stated age is alert, directable, and cooperative. Behavior: Patient is exhibiting elevated psychomotor activity. Eye contact is intense. Speech: Patient's speech is fluent and nonpressured. Hyperverbal. Mood/Affect: Mood is "I don't need to be here." Affect is intense and expansive. Suicidality/Homicidality: Patient denies having any suicidal or homicidal ideation intent or plan. Perceptions: Patient denies any visual hallucinations and denies any auditory hallucinations Though content/process: The patient is endorsing significant delusional thought content or paranoia and grandiosity. Thought process with a flight of ideas and loose associations. Memory and concentration: AOX3, grossly intact for the purposes of this session Judgment and insight: Very poor. Vital Signs Temp 97.1 F L 12/02/21 08:42 Pulse 107 H 12/02/21 08:42 Resp 16 12/02/21 08:42 BP 104/67 12/02/21 08:42 Pulse Ox 97 12/02/21 08:42 Intake & Output 12/01/21 12/02/21 12/02/21 18:59 06:59 18:59 Weight 81.25 kg Laboratory Results - Last 24 Hours 11/28/21 18:49 Clozapine <25 L Norclozapine <25 Assessment Schizophrenia Cannabis use disorder Nicotine dependence Plan: -Patient continues to meet criteria for inpatient psychiatric admission for symptom stabilization and safety. Patient is under a court order for treatment. -Medications: Increase Prolixin to 4 mg by mouth twice a day for schizophrenia. As patient is currently court ordered, if she refuses oral Prolixin administer 2.5 mg IM Prolixin. Start Depakote 500 mg by mouth at bedtime for mood stabilization -When necessary Ativan and Haldol for agitation/aggression. -NRT - nicotine patch -SW on board for discharge planning. Encouraged the patient to participate in milieu.
[2021-12-02] MEDS ORDERED: DIVALPROEX 500 MG TABLET.DR PO SCH (21:00)
[2021-12-03] MEDS: haloperidoL 5 MG TAB PO PRN (01:29)
[2021-12-03] MEDS: NICOTINE 14MG/24HR PATCH TRANSDERM SCH (08:26)
--- NOTE | 2021-12-03 10:57 | P.PN ---
Progress Note - Text Progress Note Date: 12/03/21 Interval History: Patient was seen resting in bed and was agreeable to speak with journalists and other writers in her room. The patient is currently denying any suicidal or homicidal ideation, intention, and/or plan. She denies any auditory or visual hallucinations. When asked the reasons for her admission, the patient becomes very defensive and irritable. She states "you know why I am here." She reports that she is a member of the [employer] and not the [employer]. She refuses to answer any further questions regarding her paranoid and grandiose delusions. She continues to believe that she is not schizophrenic. She has been adherent with her medications and is not reporting any significant side effects at this time. Mental Status Exam: General Appearance: Patient appears to be stated age is alert, directable, and cooperative. Behavior: Patient is exhibiting elevated psychomotor activity. Eye contact is intense. Speech: Patient's speech is fluent and nonpressured. Hyperverbal. Mood/Affect: Mood is "you know why I am here." Affect is irritable. Suicidality/Homicidality: Patient denies having any suicidal or homicidal ideation intent or plan. Perceptions: Patient denies any visual hallucinations and denies any auditory hallucinations Though content/process: The patient is endorsing significant delusional thought content or paranoia and grandiosity. Thought process with a flight of ideas and loose associations. Memory and concentration: AOX3, grossly intact for the purposes of this session Judgment and insight: Very poor. Vital Signs Temp 98.1 F 12/03/21 06:48 Pulse 101 H 12/03/21 06:48 Resp 16 12/02/21 08:42 BP 91/64 12/03/21 06:48 Pulse Ox 98 12/03/21 06:48 Assessment Schizophrenia Cannabis use disorder Nicotine dependence Plan: -Patient continues to meet criteria for inpatient psychiatric admission for symptom stabilization and safety. Patient is under a court order for treatment. -Medications: Increase Prolixin to 5 mg by mouth twice a day for schizophrenia. As patient is currently court ordered, if she refuses oral Prolixin administer 2.5 mg IM Prolixin. Plan is to transition the patient to Prolixin decanoate. Increase Depakote to 750 mg by mouth at bedtime for mood stabilization -When necessary Ativan and Haldol for agitation/aggression. -NRT - nicotine patch -SW on board for discharge planning. Encouraged the patient to participate in milieu.
[2021-12-03] MEDS: DIVALPROEX 250 MG TABLET.DR PO SCH (21:28)
[2021-12-04] MEDS: NICOTINE 14MG/24HR PATCH TRANSDERM SCH (08:54)
--- NOTE | 2021-12-04 14:16 | P.PN ---
Progress Note - Text Progress Note Date: 12/04/21 Interval History: Patient was seen resting in bed and was agreeable to speak with clinical writer in her room. The patient was initially calm and cooperative and denied any suicidal or homicidal ideation, intention, and/or plan. She reported no auditory or visual hallucinations. She initially denied any paranoia or other delusions. When asked about any side effects of medications, the patient became quite elevated and angry. She expressed that the medications were increased against her will and that she has been lied to. She expresses that she should not be on any Depakote or this high of a dose of antipsychotics. Despite this, the patient is not reporting any significant side effects. She was quite angry and says that this provider is "impeding my mission with the [facility]." Ruminates the interview. Mental Status Exam: General Appearance: Patient appears to be stated age is alert, difficult to direct and intermittently cooperative. Behavior: Patient is exhibiting elevated psychomotor activity. Eye contact is intense. Speech: Patient's speech is fluent and nonpressured. Hyperverbal and loud. Mood/Affect: Mood is "I told you not to increase the medications! This is illegal." Affect is intense and agitated. Suicidality/Homicidality: Patient denies having any suicidal or homicidal ideation intent or plan. Perceptions: Patient denies any visual hallucinations and denies any auditory hallucinations Though content/process: The patient is endorsing significant delusional thought content or paranoia and grandiosity. Thought process with a flight of ideas and loose associations. Memory and concentration: AOX3, grossly intact for the purposes of this session Judgment and insight: Very poor. Vital Signs Temp 97.7 F 12/04/21 06:38 Pulse 83 12/04/21 06:38 Resp 16 12/04/21 06:38 BP 102/58 12/04/21 06:38 Pulse Ox 98 12/03/21 06:48 Assessment Schizophrenia Cannabis use disorder Nicotine dependence Plan: -Patient continues to meet criteria for inpatient psychiatric admission for symptom stabilization and safety. Patient is under a court order for treatment. -Medications: Continue Prolixin 5 mg by mouth twice a day for schizophrenia. As patient is currently court ordered, if she refuses oral Prolixin administer 2.5 mg IM Prolixin. Plan is to transition the patient to Prolixin decanoate. Continue Depakote 750 mg by mouth at bedtime for mood stabilization -When necessary Ativan and Haldol for agitation/aggression. -NRT - nicotine patch -SW on board for discharge planning. Encouraged the patient to participate in milieu.
[2021-12-04] MEDS: DIVALPROEX 250 MG TABLET.DR PO SCH (21:17)
[2021-12-04] MEDS: traZODone HCL 50 MG TAB PO PRN (23:39)
[2021-12-05] MEDS: NICOTINE 14MG/24HR PATCH TRANSDERM SCH (09:23)
--- NOTE | 2021-12-05 11:30 | P.PN ---
Progress Note - Text Progress Note Date: 12/05/21 Interval History: Patient was seen resting in bed and was agreeable to speak with telegraphic typewriter installer in her room. The patient was initially calm and cooperative and denied any suicidal or homicidal ideation, intention, and/or plan. She reported no auditory or visual hallucinations. She denies any paranoia or other delusions. The patient then expresses to this provider that it has been 7 days and "legally you cannot hold me longer than 7 days and if he continued to keep me here and not discharge May, I will dannie." She was informed that it is within her rights to this hospital. The patient then becomes furious at this provider and begins yelling and demanding for discharge. She also begins to posture and and to the personal space of this provider. This provider began to exit the room and walked down the hallway, and the patient followed closely and continued to yell and was intrusive with this provider. She however was not physically aggressive. This provider was able to enter the nursing station and the patient returned to her room. Mental Status Exam: General Appearance: Patient appears to be stated age is alert, difficult to direct and uncooperative. Behavior: Patient is exhibiting psychomotor agitation. Eye contact is intense. Speech: Patient's speech is fluent and nonpressured. Hyperverbal and loud. Mood/Affect: Mood is "this is illegal! You need to discharge me now!" Affect is agitated Suicidality/Homicidality: Patient denies having any suicidal or homicidal ideation intent or plan. Perceptions: Patient denies any visual hallucinations and denies any auditory hallucinations Though content/process: Very fixated on discharge. Memory and concentration: AOX3, grossly intact for the purposes of this session Judgment and insight: Very poor. Vital Signs Temp 97.9 F 12/05/21 06:33 Pulse 80 12/05/21 06:33 Resp 16 12/05/21 06:33 BP 105/57 12/05/21 06:33 Pulse Ox 95 12/05/21 06:33 Assessment Schizophrenia Cannabis use disorder Nicotine dependence Plan: -Patient continues to meet criteria for inpatient psychiatric admission for symptom stabilization and safety. Patient is under a court order for treatment. -Medications: Continue Prolixin 5 mg by mouth twice a day for schizophrenia. As patient is currently court ordered, if she refuses oral Prolixin administer 2.5 mg IM Prolixin. Plan is to transition the patient to Prolixin decanoate tomorrow at 25 mg IM every 3 weeks. Continue Depakote 750 mg by mouth at bedtime for mood stabilization -When necessary Ativan and Haldol for agitation/aggression. -NRT - nicotine patch -SW on board for discharge planning. Encouraged the patient to participate in milieu.
[2021-12-05] MEDS: DIVALPROEX 250 MG TABLET.DR PO SCH (22:42)
[2021-12-05] MEDS: traZODone HCL 50 MG TAB PO PRN (22:43)
[2021-12-06] MEDS: haloperidoL 5 MG TAB PO PRN ×2 (02:50→22:47)
[2021-12-06] MEDS: NICOTINE 14MG/24HR PATCH TRANSDERM SCH (08:26)
[2021-12-06] MEDS: DIVALPROEX 250 MG TABLET.DR PO SCH (21:50)
[2021-12-07] MEDS: NICOTINE 14MG/24HR PATCH TRANSDERM SCH (09:48)
--- NOTE | 2021-12-07 11:02 | P.PN ---
Progress Note - Text Progress Note Date: 12/07/21 Interval History: Patient was seen in her room and was directable and agreeable to speak with information writer. She stated that that she has been in the hospital for 7 days and that was the legal limit so she needs to be discharged. 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 She stated that she is being kept here for protection. She stated that there was nothing wrong with her.. At this time patient denies any suicidal or homical ideations, intent or plan. Patient denies any auditory, visual hallucinations and denies any paranoia or delusions. Patient denies any side effects from the medications and has been compliant with meds. Mental Status Exam: General Appearance: Patient appears to be stated age is alert, directable, and cooperative. Behavior: Patient is calmly seated without any agitated behavior. Speech: Patient's speech is fluent and nonpressured. Mood/Affect: Mood is improving mildly, affect is congruent and constricted. Suicidality/Homicidality: Patient denies having any suicidal or homicidal ideation intent or plan. Perceptions: Patient denies any visual hallucinations and denies any auditory hallucinations Though content/process: There is no evidence of any delusional thought content and thought process is linear and goal-directed. Memory and concentration: AOX3, grossly intact for the purposes of this session Judgment and insight: Improving mildly Assessment Patient continues to have severe symptoms of psychosis and is out of touch with reality. Plan: -Patient continues to meet criteria for inpatient psychiatric admission for symptom stabilization and safety. -Medications: Continue medication as before. -When necessary Ativan and Haldol for agitation/aggression. -SW on board for discharge planning. Encouraged the patient to participate in milieu.
[2021-12-07] MEDS: DIVALPROEX 250 MG TABLET.DR PO SCH (22:26)
[2021-12-07] MEDS: haloperidoL 5 MG TAB PO PRN (22:54)
[2021-12-08] MEDS: traZODone HCL 50 MG TAB PO PRN (01:08)
[2021-12-08] MEDS: NICOTINE 14MG/24HR PATCH TRANSDERM SCH (08:40)
--- NOTE | 2021-12-08 11:02 | P.PN ---
Progress Note - Text Progress Note Date: 12/08/21 Interval History: Patient was seen in her room and was directable and agreeable to speak with race and sports book writer. 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 She stated she has done nothing wrong. She stated that she is compliant with her medications. She has a demanding to be discharged. At this time patient denies any suicidal or homical ideations, intent or plan. Patient denies any auditory, visual jamil ucinations and denies any paranoia or delusions. Patient denies any side effects from the medications and has been compliant with meds. Mental Status Exam: General Appearance: Patient appears to be stated age is alert, directable, and cooperative. Behavior: Patient is calmly seated without any agitated behavior. Speech: Patient's speech is fluent and nonpressured. Mood/Affect: Mood is improving mildly, affect is congruent and constricted. Suicidality/Homicidality: Patient denies having any suicidal or homicidal ideation intent or plan. Perceptions: Patient denies any visual hallucinations and denies any auditory hallucinations Though content/process: There is no evidence of any delusional thought content and thought process is linear and goal-directed. Memory and concentration: AOX3, grossly intact for the purposes of this session Judgment and insight: Improving mildly Assessment Patient continues to show severe psychotic symptomatology necessitating hospitalization Plan: -Patient continues to meet criteria for inpatient psychiatric admission for symptom stabilization and safety. -Medications: Continue medication as before. -When necessary Ativan and Haldol for agitation/aggression. -SW on board for discharge planning. Encouraged the patient to participate in milieu.
[2021-12-08] MEDS: DIVALPROEX 250 MG TABLET.DR PO SCH (22:26)
[2021-12-08] MEDS: haloperidoL 5 MG TAB PO PRN (22:56)
[2021-12-09] MEDS: NICOTINE 14MG/24HR PATCH TRANSDERM SCH (08:56)
[2021-12-09] MEDS ORDERED: fluPHENAZine DECANOATE 25 MG/ML 5ML MDV IM ONE (11:15)
--- NOTE | 2021-12-09 11:23 | P.PN ---
Progress Note - Text Progress Note Date: 12/09/21 Interval History: Patient was seen resting in bed and was agreeable to speak with health underwriter in her room. The patient is calm and cooperative today. She expresses a desire for discharge stating that her father is coming up from [place] to come visit. She is currently denying any suicidal or homicidal ideation, intention, and/or plan. She is denying any auditory or visual hallucinations. She is not reporting any paranoia or other delusions. She is agreeable to receiving the long-acting injectable of Prolixin today. She reports no issues with her sleep or her appetite. The patient was noted by staff to be acting bizarrely in her room last night. She was dancing seductively and required Haldol in order to calm down. She responded well to this intervention. Mental Status Exam: General Appearance: Patient appears to be stated age is alert, directable and cooperative. Behavior: Patient is with normal psychomotor activity. Eye contact is intense. Speech: Patient's speech is fluent and nonpressured. Normal tone and volume today. Mood/Affect: Mood is "I'm doing good." Affect is euthymic with appropriate range. Suicidality/Homicidality: Patient denies having any suicidal or homicidal ideation intent or plan. Perceptions: Patient denies any visual hallucinations and denies any auditory hallucinations Though content/process: Continues to desire discharge. Otherwise no delusional thought content is endorsed prevention today. Less forthcoming with any delu sions. Memory and concentration: AOX3, grossly intact for the purposes of this session Judgment and insight: Mildly improving Vital Signs Temp 98.6 F 12/09/21 07:05 Pulse 70 12/09/21 07:05 Resp 16 12/08/21 06:51 BP 96/52 12/09/21 07:05 Pulse Ox 96 12/09/21 07:05 Intake & Output 12/08/21 12/09/21 12/09/21 18:59 06:59 18:59 Weight 79.3 kg Assessment Schizophrenia Cannabis use disorder Nicotine dependence Plan: -Patient continues to meet criteria for inpatient psychiatric admission for symptom stabilization and safety. Patient is under a court order for treatment. -Medications: We will discontinue oral Prolixin and administer Prolixin Decanoate 25 mg IM today. Continue Depakote 750 mg by mouth at bedtime for mood stabilization -When necessary Ativan and Haldol for agitation/aggression. -NRT - nicotine patch -SW on board for discharge planning. Encouraged the patient to participate in milieu.
[2021-12-09 12:10] VITALS: BMI 25.0
[2021-12-09] MEDS: DIVALPROEX 250 MG TABLET.DR PO SCH (20:44)
[2021-12-10] MEDS: traZODone HCL 50 MG TAB PO PRN ×2 (00:33→23:02)
[2021-12-10] MEDS: NICOTINE 14MG/24HR PATCH TRANSDERM SCH (08:44)
--- NOTE | 2021-12-10 11:09 | P.PN ---
Progress Note - Text Progress Note Date: 12/10/21 Interval History: Patient was seen resting in bed and was agreeable to speak with keno writer / runner in her room. The patient received Prolixin Decanoate 25 mg IM yesterday. She is currently adherent with her Depakote 750 mg at bedtime. She is currently not reporting any suicidal or homicidal ideation, intention, and/or plan. She denies any auditory or visual hallucinations. She denies any paranoia or other delusions. Patient is not forthcoming with any delusions today. She continues to express a desire for discharge stating that she would like to see her father who is coming up to visit [place] from [place]. The patient is not reporting any significant side effects from medications. Mental Status Exam: General Appearance: Patient appears to be stated age is alert, directable and cooperative. Behavior: Patient is with normal psychomotor activity. Eye contact is fair. Speech: Patient's speech is fluent and nonpressured. Normal tone and volume today. Mood/Affect: Mood is "I'm doing good." Affect is euthymic with appropriate range. Suicidality/Homicidality: Patient denies having any suicidal or homicidal ideation intent or plan. Perceptions: Patient denies any visual hallucinations and denies any auditory hallucinations Though content/process: Continues to desire discharge. Otherwise no delusional thought content is endorsed prevention today. Does not mention any delusions today. Memory and concentration: AOX3, grossly intact for the purposes of this session Judgment and insight: Mildly improving Vital Signs Temp 98.8 F 12/10/21 07:06 Pulse 90 12/10/21 07:06 Resp 16 12/08/21 06:51 BP 94/59 12/10/21 07:06 Pulse Ox 98 12/10/21 07:06 Intake & Output 12/09/21 12/10/21 12/10/21 18:59 06:59 18:59 Weight 79.3 kg Assessment Schizophrenia Cannabis use disorder Nicotine dependence Plan: -Patient continues to meet criteria for inpatient psychiatric admission for symptom stabilization and safety. Patient is under a court order for treatment. -Medications: Prolixin decanoate 25 mg IM was administered on 12/09/2021. Patient is to receive this every 3 weeks with next dose due on 12/30/2021.. Continue Depakote 750 mg by mouth at bedtime for mood stabilization -When necessary Ativan and Haldol for agitation/aggression. -NRT - nicotine patch -SW on board for discharge planning. Encouraged the patient to participate in milieu.
[2021-12-10] MEDS: DIVALPROEX 250 MG TABLET.DR PO SCH (21:11)
[2021-12-11] MEDS: NICOTINE 14MG/24HR PATCH TRANSDERM SCH (07:54)
--- NOTE | 2021-12-11 11:25 | P.PN ---
Progress Note - Text Progress Note Date: 12/11/21 Interval History: Patient was seen resting in bed and was agreeable to speak with check writer in her room. Patient is currently not reporting any suicidal or homicidal ideation, intention, and/or plan. She is denying any auditory or visual hallucinations. She reports no paranoia or other delusions. She denies any side effects from medications and has been in adherent. The patient has been directable and has been attending groups. She reports no issues regarding her sleep or her appetite. The patient continues to look forward to discharge. She states that she would like to see her father. Mental Status Exam: General Appearance: Patient appears to be stated age is alert, directable and cooperative. Behavior: Patient is with normal psychomotor activity. Eye contact is fair. Speech: Patient's speech is fluent and nonpressured. Normal tone and volume today. Mood/Affect: Mood is "feeling really good." Affect is euthymic and bright Suicidality/Homicidality: Patient denies having any suicidal or homicidal ideation intent or plan. Perceptions: Patient denies any visual hallucinations and denies any auditory hallucinations Though content/process: Continues to desire discharge. Otherwise no delusional thought content is endorsed prevention today. Does not mention any delusions today. Memory and concentration: AOX3, grossly intact for the purposes of this session Judgment and insight: Mildly improving Vital Signs Temp 98.8 F 12/10/21 07:06 Pulse 90 12/10/21 07:06 Resp 16 12/08/21 06:51 BP 94/59 12/10/21 07:06 Pulse Ox 98 12/10/21 07:06 Assessment Schizophrenia Cannabis use disorder Nicotine dependence Plan: -Patient continues to meet criteria for inpatient psychiatric admission for symptom stabilization and safety. Patient is under a court order for treatment. -Medications: Prolixin decanoate 25 mg IM was administered on 12/09/2021. Patient is to receive this every 3 weeks with next dose due on 12/30/2021.. Continue Depakote 750 mg by mouth at bedtime for mood stabilization -CMP and valproic acid levels were ordered. -When necessary Ativan and Haldol for agitation/aggression. -NRT - nicotine patch -SW on board for discharge planning. Encouraged the patient to participate in milieu.
[2021-12-11 12:54] LABS: ALT 12 U/L (4-34); AST 16 U/L (14-36); African American GFR (CKD) >90 (>60 ml/min/1.73 sqM); Albumin 3.8 g/dL (3.5-5.0); Alkaline Phosphatase 64 U/L (38-126); Anion Gap 6 mmol/L; Blood Urea Nitrogen 5 mg/dL (7-17); Carbon Dioxide 24 mmol/L (22-30); Chloride 102 mmol/L (98-107); Glucose 88 mg/dL (74-99); Non-African American GFR(CKD) >90 (>60 ml/min/1.73 sqM); Potassium 4.3 mmol/L (3.5-5.1); Sodium 132 mmol/L (137-145); Total Bilirubin 0.9 mg/dL (0.2-1.3); Total Protein 6.8 g/dL (6.3-8.2)
[2021-12-11 13:19] LABS: Valproic Acid (Depakene) 66.2 ug/mL
[2021-12-11] MEDS: DIVALPROEX 250 MG TABLET.DR PO SCH (19:48)
[2021-12-12 07:13] VITALS: BP 113/53; PULSE 56; TEMP 97.5
[2021-12-12] MEDS: NICOTINE 14MG/24HR PATCH TRANSDERM SCH (07:52)
--- NOTE | 2021-12-12 12:10 | P.DS ---
Providers Date of admission: 11/28/21 17:28 Expected date of discharge: 12/12/21 Attending physician: Saul Bernardo MD Consults: 11/28/21 17:31 Consult Physician Routine Consulting Provider: Torres Escobar Consult Reason/Comments: medical management Do you want consulting provider notified?: Yes Primary care physician: Physician Nonstaff - Discharge Diagnosis(es) (1) Schizophrenia Current Visit: Yes Status: Acute Priority: High (2) Cannabis use disorder, mild, abuse Current Visit: Yes Status: Chronic Priority: Medium (3) Nicotine dependence Current Visit: Yes Status: Chronic Priority: Medium Hospital Course: Admission HPI: Initial psychiatric evaluation was completed by Dr. Trotter on 11/29/2021 who wrote: " Patient is a 46-year-old female who has no kids. She claims that she works at [employer]. Her sister is her guardian. History of chronic schizophrenia. Patient presented to the hospital yesterday on a pickup order after recently being discharged from [facility]. Patient is on a current court order for mental health treatment in this [facility]. Patient had 2 previous psychiatric hospitalizations and [facility] with her last hospitalization being on October 2021. Patient at that time was given Invega Sustenna and due to ineffectiveness was transitioned onto clozapine. Patient has a chronically poor insight and judgment and minimal insight into her illness. Patient apparently had severe delusions and paranoia upon arrival and was admitted involuntarily to the mental health unit. Patient was seen by greeting card writer in her room as she was laying in her bed and was agreeable to speak to greeting card writer in the office. Patient appeared to be very irritable with the greeting card writer today and argumentative. She had poor hygiene and grooming. She claims that her dropped her off at the hospital. She states that she is in the area "looking for terrorists" and that she works for the [employer]. She also states that she was employed by [employer] and claims that "if you don't believe me I have his cell phone number you can call him". She was very impulsive and was offended by greeting card writer immediately and states that "I dont have to take this, I want a new doctor, youre a fraud". She walked away from greeting card writer in the office and slammed the door loudly. Unable to assess Ah or Vh at this time and denies any si or Hi. Patient has a history of smoking cigarettes and marijuana however her UDS on this visit is negative. Patient has history of schizophrenia. She claims that she has been on several different medications in the past including Risperdal and clozapine. She claims that she has been hospitalized several times in the past. She has 2 previous admissions at [facility]. Her last hospitalization was in early October 2021. Patient was also recently psychiatrically hospitalized at [facility] and discharged on 11/25. She claims that she does have a psychiatrist in [place] however did not give the name. Patient denies any history of suicide attempts in the past." Hospital course: Upon admission to the unit patient was initially presenting a with significant symptoms of psychosis including paranoia and believed that she was with the [facility]. Patient was started on Prolixin for psychosis who plans to transition to a long-acting injectable. The patient was also under court order for treatment. Over the course of the hospitalization, the patient displayed minimal improvement and became very easily agitated when discussing her psychotic symptoms. Her Prolixin was gradually titrated. Furthermore Depakote was added to her regimen. The patient was initially very angry that Depakote was added to her regimen however as his Depakote and Prolixin were titrated, the patient became more calm and cooperative. The patient was eventually agreeable to transition to Prolixin decanoate. As the patient presented with severe psychotic symptoms and has a significant history of nonadherence to treatment, the decision was made that the patient would most benefit from [facility] placement. Discharge planning to place and the patient was eventually found placement at the [facility]. The patient displayed significant improvement in regards to her psychotic symptoms. She would not be forthcoming with any psychotic delusions and was very directable and calm and cooperative. On the day of discharge, the patient is not reporting any suicidal or homicidal ideation, intention,/or plan. She denies any auditory or visual hallucinations. She reports no paranoia or other delusions. She denies any access to firearms or other weapons. The patient has been adherent with the medications and is not reporting any significant side effects at this time. She reports no issues regarding her sleep or her appetite. She displays improved hygiene and groomin g. The patient was counseled length on importance medication against appropriate outpatient follow-up. She does not have a significant history of substance use assessment cannabis and nicotine however was counseled on abstaining from substances including these and alcohol and other illicit drugs. Prior to discharge, family meeting will be arranged by social service director and to the questions for safety. The patient was subsequently discharged to the [facility]. Mental status exam: General Appearance: Patient appears to be stated age is alert, pleasant, and cooperative. Patient is in no acute distress and has fair hygiene and grooming Behavior: Patient is calmly seated without any agitated behavior. Speech: Patient's speech is fluent and nonpressured. Mood/Affect: Patient reports their mood is "much better", affect is congruent and blunted but euthymic. Suicidality/Homicidality: Patient denies having any suicidal or homicidal ideation intent or plan. Perceptions: Patient denies any auditory or visual hallucinations. Though content/process: There is no evidence of any delusional thought content and thought process is linear and goal-directed. Patient appears to be future oriented. Memory and concentration: AOX3, grossly intact for the purposes of this session. Can spell "WORLD" backwards correctly. Judgment and insight: Improved with guarded prognosis Vital Signs Temp 97.5 F L 12/12/21 06:37 Pulse 56 L 12/12/21 06:37 Resp 16 12/12/21 06:37 BP 113/53 12/12/21 06:37 Pulse Ox 98 12/10/21 07:06 Impression: Schizophrenia Cannabis use disorder Nicotine dependence Plan: -Continue with discharge today as patient has improved and stabilized psychiatrically and is not currently an imminent threat to self and/or others. Patient will remain at chronically elevated risk for harm to self and/or others due to her impulsivity and severe mental illness. -Continue medications: Prolixin decanoate 25 mg IM was instructed on 12/09/2021. Next dose due in 21 days on 12/30/2021. Depakote 750 mg daily at bedtime for mood stabilization -Patient was counseled on the need for medication compliance and appropriate follow-up at mental health and also primary care for medical issues. Patient verbalized understanding and agreed. -Social work to arrange for and conduct family meeting to ensure safety upon discharge and answer any questions/concerns. Social work also to arrange for patients follow up appointments with [facility]] for psychiatric care along with follow up with primary care provider. -Patient counseled on abstaining from recreational drugs and marijuana and alcohol. Was informed/educated on the adverse effects on their physical and mental health. Patient verbally agreed and understood. -Patient was instructed to return to the hospital or seek immediate medical care if their psychiatric or medical symptoms do worsen or reoccur. -Psychoeducation and supportive therapy provided to patient. Risks and benefits of pharmacological treatment versus the risks and benefits of nontreatment weight and discussed. Informed consent discussion held. Common side effects of psychotropics discussed such as, but not limited to headache, GI disturbance, sexual dysfunction, movement disorders, sedation, and orthostatic hypotension. Life threatening and blackbox warnings of prescribed medications also discussed. Potential risks of operating a vehicle or heavy machinery discussed with patient at length. Advised on importance of compliance and a reliable and responsible manner. Patient advised to review FDA consumer labeling of all medications prior to taking. Patient verbalized understanding of potential risks, and agrees with current treatment plan. Patient advised to medically contact physician/emergency personnel if any acute changes in condition occur. Laboratory Results WBC 11.6 k/uL (3.8-10.6) H 11/28/21 01:33 RBC 4.41 m/uL (3.80-5.40) 11/28/21 01:33 Hgb 14.6 gm/dL (11.4-16.0) 11/28/21 01:33 Hct 41.9 % (34.0-46.0) 11/28/21 01:33 MCV 95.0 fL (80.0-100.0) 11/28/21 01:33 MCH 33.1 pg (25.0-35.0) 11/28/21 01:33 MCHC 34.8 g/dL (31.0-37.0) 11/28/21 01:33 RDW 12.6 % (11.5-15.5) 11/28/21 01:33 Plt Count 310 k/uL (150-450) 11/28/21 01:33 MPV 7.5 11/28/21 01:33 Neutrophils % 66 % 11/28/21 01:33 Lymphocytes % 25 % 11/28/21 01:33 Monocytes % 5 % 11/28/21 01:33 Eosinophils % 1 % 11/28/21 01:33 Basophils % 1 % 11/28/21 01:33 Neutrophils # 7.7 k/uL (1.3-7.7) 11/28/21 01:33 Lymphocytes # 3.0 k/uL (1.0-4.8) 11/28/21 01:33 Monocytes # 0.6 k/uL (0-1.0) 11/28/21 01:33 Eosinophils # 0.1 k/uL (0-0.7) 11/28/21 01:33 Basophils # 0.1 k/uL (0-0.2) 11/28/21 01:33 Sodium 132 mmol/L (137-145) L 12/11/21 12:23 Potassium 4.3 mmol/L (3.5-5.1) 12/11/21 12: Chloride 102 mmol/L (98-107) 12/11/21 12: Carbon Dioxide 24 mmol/L (22-30) 12/11/21 12:23 Anion Gap 6 mmol/L 12/11/21 12:23 BUN 5 mg/dL (7-17) L 12/11/21 12:23 Creatinine 0.77 mg/dL (0.52-1.04) 12/11/21 12:23 Est GFR (CKD-EPI)AfAm >90 (>60 ml/min/1.73 sqM) 12/11/21 12: Est GFR (CKD-EPI)NonAf >90 (>60 ml/min/1.73 sqM) 12/11/21 12:23 Glucose 88 mg/dL (74-99) 12/11/21 12:[address] Glu mg/dL 99 11/28/21 01:33 Hemoglobin A1c 5.1 % (0.0-6.0) 11/28/21 01:33 Calcium 9.0 mg/dL (8.4-10.2) 12/11/21 12:23 Total Bilirubin 0.9 mg/dL (0.2-1.3) 12/11/21 12: AST 16 U/L (14-36) 12/11/21 12:23 ALT 12 U/L (4-34) 12/11/21 12:23 Alkaline Phosphatase 64 U/L (38-126) 12/11/21 12:23 Total Protein 6.8 g/dL (6.3-8.2) 12/11/21 12: Albumin 3.8 g/dL (3.5-5.0) 12/11/21 12:23 Triglycerides 68.40 mg/dL (0.00-149.00) 11/28/21 01: Cholesterol 176.00 mg/dL (0.00-200.00) 11/28/21 01: LDL Cholesterol, Calc 98.3 mg/dL (0.0-131.0) 11/28/21 01: VLDL Cholesterol, Calc 13.68 mg/dL (5.00-40.00) 11/28/21 01: HDL Cholesterol 64.00 mg/dL (40.00-60.00) H 11/28/21 01: Cholesterol/HDL Ratio 2.75 Ratio 11/28/21 01: TSH 4.030 mIU/L (0.465-4.680) 11/28/21 01: Urine Color Light Yellow 11/28/21 01: Urine Appearance Clear (Clear) 11/28/21 01: Urine pH 6.5 (5.0-8.0) 11/28/21 01: Ur Specific [place] 1.006 (1.001-1.035) 11/28/21 01: Urine Protein Negative (Negative) 11/28/21 01: Urine Glucose (UA) Negative (Negative) 11/28/21 01: Urine Ketones 2+ (Negative) H 11/28/21 01:33 Urine Blood Negative (Negative) 11/28/21 01: Urine Nitrite Negative (Negative) 11/28/21 01: Urine Bilirubin Negative (Negative) 11/28/21 01: Urine Urobilinogen <2.0 mg/dL (<2.0) 11/28/21 01:33 Ur Leukocyte Esterase Trace (Negative) H 11/28/21 01: Urine RBC 1 /hpf (0-5) 11/28/21 01:33 Urine WBC 6 /hpf (0-5) H 11/28/21 01:33 Ur Squamous Epith Cells 6 /hpf (0-4) H 11/28/21 01:33 Amorphous Sediment Rare /hpf (None) H 11/28/21 01:33 Urine Bacteria Rare /hpf (None) H 11/28/21 01:33 Urine HCG, Qual Not Detected (Not Detectd) 11/28/21 01:33 Urine Opiates Screen Not Detected (NotDetected) 11/28/21 01:33 Ur Oxycodone Screen Not Detected (NotDetected) 11/28/21 01:33 Urine Methadone Screen Not Detected (NotDetected) 11/28/21 01:33 Ur Propoxyphene Screen Not Detected (NotDetected) 11/28/21 01:33 Ur Barbiturates Screen Not Detected (NotDetected) 11/28/21 01:33 Valproic Acid 66.2 ug/mL 12/11/21 12:23 U Tricyclic Antidepress Not Detected (NotDetected) 11/28/21 01:33 Ur Phencyclidine Scrn Not Detected (NotDetected) 11/28/21 01:33 Clozapine <25 ng/mL (200-700) L 11/28/21 18:49 Norclozapine <25 ng/mL (200-700) 11/28/21 18:49 Ur Amphetamines Screen Not Detected (NotDetected) 11/28/21 01:33 U Methamphetamines Scrn Not Detected (NotDetected) 11/28/21 01:33 U Benzodiazepines Scrn Not Detected (NotDetected) 11/28/21 01:33 Urine Cocaine Screen Not Detected (NotDetected) 11/28/21 01:33 U Marijuana (THC) Screen Not Detected (NotDetected) 11/28/21 01:33 Coronavirus (PCR) Not Detected (Not Detectd) 11/28/21 02:37 Allergies Allergy/AdvReac Type Severity Reaction Status Date / Time No Known Allergies Allergy Verified 11/28/21 18:22 Patient Condition at Discharge: Stable Plan - Discharge Summary Discharge Rx Participant: No New Discharge Prescriptions: New Divalproex [Depakote] 750 mg PO HS 30 Days tablet fluPHENAZine decanoate [Prolixin Decanoate] 25 mg IM Q21D #1 each Discontinued traZODone HCL [Desyrel] 50 mg PO HS PRN 14 Days tab PRN Reason: Insomnia cloZAPine [Clozaril] 50 mg PO DAILY cloZAPine [Clozaril] 300 mg PO DAILY LORazepam [Ativan] 1 mg PO BID PRN PRN Reason: Anxiety Discharge Medication List Divalproex [Depakote] 750 mg PO HS 30 Days tablet 12/12/21 [Rx] fluPHENAZine decanoate [Prolixin Decanoate] 25 mg IM Q21D #1 each 12/12/21 [Rx] Follow up Appointment(s)/Ref[facility] - 1 Week Patient Instructions/Handouts: Schizophrenia (DC) Activity/Diet/Wound Care/Special Instructions: Activity and diet as tolerated. Avoid the use of street drugs and alcohol. Take all medications as prescribed. When you are in need of refills on your medications please contact your medical provider and/or outpatient psychiatrist to have this done. Please go to scheduled outpatient appointment for aftercare treatment. If symptoms return or become worse, call the crisis line at and/or go to the nearest emergency room for evaluation Discharge Disposition: HOME SELF-CARE
== END 2021-12-12 13:10 | disposition home or self-care (01) | DRG 885 ==
LOC: EC 19:01 → 3MHU 11-28 17:28
PROVIDERS: ADMIT Psychiatry & Neurology Psychiatry; ATTEND Psychiatry & Neurology Psychiatry
DX: F20.9 Schizophrenia, unspecified (principal); F12.90 Cannabis use, unspecified, uncomplicated; F17.200 Nicotine dependence, unspecified, uncomplicated; Z79.899 Other long term (current) drug therapy; Z91.14 Patient's other noncompliance with medication regimen
CPT/HCPCS: 36415; 80048; 80053; 80061; 80159; 80164; 80306; 81001; 81025; 82075; 83036; 84443; 85025; 87635; 99285

== ENCOUNTER 2021-12-19 21:20 | Emergency (ER) | payer MEDICARE ==
[2021-12-19 21:40] VITALS: BP 119/69; PULSE 87; RESP 16; TEMP 98
--- NOTE | 2021-12-19 21:48 | ED ---
Psych HPI - General Chief Complaint: Psychiatric Symptoms Stated Complaint: Mental Health Time Seen by Provider: 12/19/21 21:40 Source: patient Mode of arrival: EMS - History of Present Illness Initial Comments: This patient is a 46-year-old woman brought to have psychiatric evaluation. When I interview the patient, she denies complaints. She states that she was sitting and smoking a cigarette when police came and brought her here. She states that she would just like to go back to her residence. She is denying any suicidal or homicidal ideation. MD Complaint: other -: unknown Associated Psychiatric Symptoms: none Improves With: none Worsens With: none - Related Data Previous Rx's Medication Instructions Recorded Divalproex [Depakote] 750 mg PO HS 30 Days tablet 12/12/21 fluPHENAZine decanoate [Prolixin 25 mg IM Q21D #1 each 12/12/21 Decanoate] Allergies Allergy/AdvReac Type Severity Reaction Status Date / Time No Known Allergies Allergy Verified 11/28/21 18:22 Review of Systems ROS Statement: Those systems with pertinent positive or pertinent negative responses have been documented in the HPI. ROS Other: All systems not noted in ROS Statement are negative. Constitutional: Denies: fever Respiratory: Denies: cough, dyspnea Cardiovascular: Denies: chest pain, edema Gastrointestinal: Denies: abdominal pain, vomiting, diarrhea Genitourinary: Denies: dysuria, hematuria Musculoskeletal: Denies: back pain Neurological: Denies: headache Psychiatric: Denies: depression, auditory hallucinations, visual hallucinations, homicidal thoughts, suicidal thoughts Past Medical History Past Medical History: No Reported History History of Any Multi-Drug Resistant Organisms: None Reported Past Surgical History: Ear Surgery Additional Past Surgical History / Comment(s): bnunion surgery on L foot Past Anesthesia/Blood Transfusion Reactions: No Reported Reaction Past Psychological History: Schizophrenia Smoking Status: Current every day smoker Past Alcohol Use History: Occasional Past Drug Use History: None Reported - Past Family History Family Family Medical History: No Reported History General Exam Limitations: no limitations General appearance: alert, in no apparent distress Head exam: Present: atraumatic, normocephalic Eye exam: Present: normal appearance Respiratory exam: Present: normal lung sounds bilaterally. Absent: respiratory distress, wheezes, rales, rhonchi, stridor Cardiovascular Exam: Present: regular rate, normal rhythm, normal heart sounds. Absent: systolic murmur, diastolic murmur, rubs, gallop GI/Abdominal exam: Present: soft. Absent: tenderness, guarding, rebound Extremities exam: Present: normal inspection, normal capillary refill. Absent: pedal edema, calf tenderness Neurological exam: Present: alert, oriented X3 Psychiatric exam: Present: normal affect, normal mood. Absent: agitated, anxious, flat affect, manic, homicidal ideation, suicidal ideation Skin exam: Present: warm, dry, intact, normal color. Absent: rash Course Vital Signs 12/19/21 21:28 Temperature 98.0 F Pulse Rate 87 Respiratory 16 Rate Blood Pressure 119/69 O2 Sat by Pulse 98 Oximetry Disposition Clinical Impression: Adjustment reaction of adult life Disposition: HOME SELF-CARE Condition: Good Instructions (If sedation given, give patient instructions): Mood Disorders (ED) Additional Instructions: Given the recent medication change, it may take a couple of days for your mood to stabilize. If there is any recurrence of symptoms or new symptoms deftly return for reevaluation. Is patient prescribed a controlled substance at d/c from ED?: No Referrals: Nonstaff,Physician [Primary Care Provider] - 1-2 days
== END 2021-12-19 23:00 | disposition home or self-care (01) ==
LOC: EC 21:20
DX: F43.20 Adjustment disorder, unspecified (principal); F20.9 Schizophrenia, unspecified; F17.200 Nicotine dependence, unspecified, uncomplicated; Z79.899 Other long term (current) drug therapy
CPT/HCPCS: 99283

== ENCOUNTER 2023-12-21 21:44 | Emergency (ER) | payer MEDICARE, OTHER ==
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
[2023-12-21 23:29] LABS: Amphetamine Screen,Urine Not Detected (NotDetected); Barbiturate Screen,Urine Not Detected (NotDetected); Benzodiazepines Screen,Urine Not Detected (NotDetected); Cocaine Screen,Urine Not Detected (NotDetected); Methadone Screen, Urine Not Detected (NotDetected); Opiate Screen,Urine Not Detected (NotDetected); Oxycodone Screen, Urine Not Detected (NotDetected); Phencyclidine Screen,Urine Not Detected (NotDetected); Tricyclic Antidepressant,Urine Detected (NotDetected); Urn Cannabinoid Scrn Not Detected (NotDetected)
[2023-12-22 01:03] LABS: Basophils % (A) 0 %; Eosinophils % (A) 0 %; HCT 39.6 % (34.0-46.0); Lymphocytes # (A) 3.7 k/uL (1.0-4.8); Lymphocytes % (A) 32 %; MCH 29.8 pg (25.0-35.0); MCHC 32.9 g/dL (31.0-37.0); MCV 90.4 fL (80.0-100.0); Mean Platelet Volume 7.6; Monocytes # (A) 0.5 k/uL (0-1.0); Monocytes % (A) 4 %; Neutrophils % (A) 61 %; Platelet Count 313 k/uL (150-450); RBC 4.38 m/uL (3.80-5.40); RDW 15.4 % (11.5-15.5); WBC 11.3 k/uL (3.8-10.6)
[2023-12-22 01:14] LABS: ALT 18 U/L (4-34); AST 18 U/L (14-36); African American GFR (CKD) 85 (>60 ml/min/1.73 sqM); Albumin 3.8 g/dL (3.5-5.0); Alkaline Phosphatase 87 U/L (38-126); Anion Gap 10 mmol/L; Blood Urea Nitrogen 7 mg/dL (7-17); Calcium 8.9 mg/dL (8.4-10.2); Carbon Dioxide 21 mmol/L (22-30); Chloride 108 mmol/L (98-107); Glucose 109 mg/dL (74-99); Non-African American GFR(CKD) 74 (>60 ml/min/1.73 sqM); Potassium 3.7 mmol/L (3.5-5.1); Sodium 139 mmol/L (137-145); Total Bilirubin 0.5 mg/dL (0.2-1.3); Total Protein 6.9 g/dL (6.3-8.2)
[2023-12-22 06:44] VITALS: BP 109/64; PULSE 84; RESP 15; TEMP 97.9
[2023-12-22] MEDS: cloZAPine 100 MG TAB PO SCH (10:27)
[2023-12-22] MEDS: cloZAPine 25 MG TAB PO SCH (10:28)
[2023-12-23 12:38] LABS: Clozapine (Clozaril) 780 ng/mL (200-700); Norclozapine 299 ng/mL (200-700)
== END 2023-12-22 10:32 | disposition home or self-care (01) ==
LOC: EEVIPCON 21:44 → EC 21:44
DX: F20.9 Schizophrenia, unspecified (principal); F17.200 Nicotine dependence, unspecified, uncomplicated
CPT/HCPCS: 82075; 36415; 80159; 80053; 85025; 80306; 99285; S0136 ×2

== ENCOUNTER 2023-12-30 20:40 | Inpatient (IN) | payer MEDICARE ==
[2023-12-30 21:23] LABS: Amphetamine Screen,Urine Not Detected (NotDetected); Barbiturate Screen,Urine Not Detected (NotDetected); Benzodiazepines Screen,Urine Not Detected (NotDetected); Cocaine Screen,Urine Not Detected (NotDetected); Methadone Screen, Urine Not Detected (NotDetected); Opiate Screen,Urine Not Detected (NotDetected); Oxycodone Screen, Urine Not Detected (NotDetected); Phencyclidine Screen,Urine Not Detected (NotDetected); Tricyclic Antidepressant,Urine Not Detected (NotDetected); Urn Cannabinoid Scrn Not Detected (NotDetected)
--- NOTE | 2023-12-30 21:49 | ED ---
Psych HPI - General Chief Complaint: Psychiatric Symptoms Stated Complaint: petition Time Seen by Provider: 12/30/23 20:50 Source: patient, police Mode of arrival: ambulatory - History of Present Illness Initial Comments: This patient is a 48-year-old woman who is brought to have psychiatric evaluation on court ordered pickup. The patient does admit to psychiatric history. She states she has been compliant with her medication. She denies homicidal or suicidal ideation. From the pickup order, it appears that the patient has been responding to internal stimuli. She has had disordered sleep cycle. While failure with pickup order states that she sometimes becomes violent when manic MD Complaint: other -: unknown Associated Psychiatric Symptoms: none Quality: getting worse Improves With: none Worsens With: none - Related Data Home Medications Medication Instructions Recorded Confirmed Divalproex [Depakote] 750 mg PO HS@2100 12/19/21 12/19/21 cloZAPine [Clozaril] See Taper PO DIRECTED 12/19/21 12/19/21 fluPHENAZine decanoate [Prolixin 25 mg IM Q14D 12/19/21 12/19/21 Decanoate] traZODone HCL [Desyrel] 100 mg PO HS@2100 12/19/21 12/19/21 Allergies Allergy/AdvReac Type Severity Reaction Status Date / Time No Known Allergies Allergy Verified 12/30/23 20:46 Review of Systems ROS Statement: Those systems with pertinent positive or pertinent negative responses have been documented in the HPI. ROS Other: All systems not noted in ROS Statement are negative. Constitutional: Denies: fever Respiratory: Denies: cough, dyspnea Cardiovascular: Denies: chest pain, edema Gastrointestinal: Denies: abdominal pain, vomiting, diarrhea Genitourinary: Denies: dysuria Skin: Denies: rash Neurological: Denies: headache Psychiatric: Denies: homicidal thoughts, suicidal thoughts Past Medical History Past Medical History: No Reported History History of Any Multi-Drug Resistant Organisms: None Reported Past Surgical History: Ear Surgery Additional Past Surgical History / Comment(s): bnunion surgery on L foot Past Anesthesia/Blood Transfusion Reactions: No Reported Reaction Past Psychological History: Schizophrenia Smoking Status: Current every day smoker Past Alcohol Use History: Occasional Past Drug Use History: None Reported - Past Family History Family Family Medical History: No Reported History General Exam General appearance: alert, in no apparent distress Head exam: Present: atraumatic, normocephalic Eye exam: Present: normal appearance. Absent: scleral icterus, conjunctival injection ENT exam: Present: normal oropharynx Respiratory exam: Present: normal lung sounds bilaterally. Absent: respiratory distress, wheezes, rales, rhonchi, stridor Cardiovascular Exam: Present: regular rate, normal rhythm, normal heart sounds. Absent: systolic murmur, diastolic murmur, rubs, gallop GI/Abdominal exam: Present: soft. Absent: distended, tenderness, guarding, rebound, rigid Extremities exam: Present: normal inspection, normal capillary refill. Absent: pedal edema, calf tenderness Back exam: Present: normal inspection Neurological exam: Present: alert Psychiatric exam: Absent: depressed, agitated, anxious, flat affect, homicidal ideation, suicidal ideation Skin exam: Present: warm, dry, intact, normal color. Absent: rash Course Vital Signs 12/30/23 20:43 Temperature 97.8 F Pulse Rate 93 Respiratory 18 Rate Blood Pressure 127/74 O2 Sat by Pulse 100 Oximetry Medical Decision Making - Medical Decision Making This patient is 48-year-old woman here to have court ordered psychiatric examination. The patient does have disorganized thought processes, delusional thought content, and poor insight to her condition. The case discussed with EPS and after they staffed with the psychiatrist, the patient will be admitted to have further therapy. Was pt. sent in by a medical professional or institution (ANUSHA Klein, ENGINEERING DOCUMENT CONTROL CLERK, urgent care, hospital, or snf...) When possible be specific @ -[No] Did you speak to anyone other than the patient for history (EMS, parent, family, police, friend...)? What history was obtained from this source @ -[No] Did you review nursing and triage notes (agree or disagree)? Why? @ -[I reviewed and agree with nursing and triage notes] Were old charts reviewed (outside hosp., previous admission, EMS record, old EKG, old radiological studies, urgent care reports/EKG's, snf records)? Report findings @ -[No old charts were reviewed] Differential Diagnosis (chest pain, altered mental status, abdominal pain women, abdominal pain men, vaginal bleeding, weakness, fever, dyspnea, syncope, headache, dizziness, GI bleed, back pain, seizure, CVA, palpatations, mental health, musculoskeletal)? @ -Differential Mental Health Depression, anxiety, bipolar, psychosis, schizophrenia, borderline personality, situational depression, adjustment disorder, behavioral disorder, brain tumor, malingering, substance abuse, encephalopathy, medication reaction, dementia, hypothyroidism, degenerative neurologic disorder, lupus.... This is not meant to be all-inclusive list EKG interpreted by me (3pts min.). @ -[ X-rays interpreted by me (1pt min.). @ -[None done] CT interpreted by me (1pt min.). @ -[None done] U/S interpreted by me (1pt. min.). @ -[None done] What testing was considered but not performed or refused? (CT, X-rays, U/S, labs)? Why? @ -[None] What meds were considered but not given or refused? Why? @ -[None] Did you discuss the management of the patient with other professionals (professionals i.e. , PA, ENGINEERING DOCUMENT CONTROL CLERK, lab, RT, psych nurse, social and human services assistant, resaw tailer, teacher, seaman officer, complex case manager)? Give summary @ -Case discussed with EPS personnel, see the course above Was smoking cessation discussed for >3mins.? @ -[No] Was critical care preformed (if so, how long)? @ -[No] Were there social determinants of health that impacted care today? How? (Homelessness, low income, unemployed, alcoholism, drug addiction, transportation, low edu. Level, literacy, decrease access to med. care, shelter, rehab)? @ -[No] Was there de-escalation of care discussed even if they declined (Discuss DNR or withdrawal of care, Hospice)? DNR status @ -[No] What co-morbidities impacted this encounter? (DM, HTN, Smoking, COPD, CAD, Cancer, CVA, ARF, Chemo, Hep., AIDS, mental health diagnosis, sleep apnea, morbid obesity)? @ -[History of psychiatric illness Was patient admitted / discharged? Hospital course, mention meds given and route, prescriptions, significant lab abnormalities, going to OR and other pertinent info. @ -[Admitted, as above Undiagnosed new problem with uncertain prognosis? @ -[No] Drug Therapy requiring intensive monitoring for toxicity (Heparin, Nitro, Insulin, Cardizem)? @ -[No] Were any procedures done? @ -[No] Diagnosis/symptom? @ -[Acute on chronic psychosis Acute, or Chronic, or Acute on Chronic? @ -[Acute on chronic Uncomplicated (without systemic symptoms) or Complicated (systemic symptoms)? @ -[Uncomplicated Side effects of treatment? @ -[No] Exacerbation, Progression, or Severe Exacerbation? @ -[No] Poses a threat to life or bodily function? How? (Chest pain, USA, [place], pneumonia, PE, COPD, DKA, ARF, appy, cholecystitis, CVA, Diverticulitis, Homicidal, Suicidal, threat to staff... and all critical care pts) @ -[No] - Lab Data Lab Results 12/30/23 12/30/23 12/30/23 Range/Units 20:52 20:52 20:52 Urine Color Colorless Urine Appearance Clear (Clear) Urine pH 7.0 (5.0-8.0) Ur Specific [place] 1.006 (1.001-1.035) Urine Protein Negative (Negative) Urine Glucose (UA) Negative (Negative) Urine Ketones Negative (Negative) Urine Blood Negative (Negative) Urine Nitrite Negative (Negative) Urine Bilirubin Negative (Negative) Urine Urobilinogen <2.0 (<2.0) mg/dL Ur Leukocyte Esterase Negative (Negative) Urine HCG, Qual Not Detected (Not Detectd) Urine Opiates Screen Not Detected (NotDetected) Ur Oxycodone Screen Not Detected (NotDetected) Urine Methadone Screen Not Detected (NotDetected) Ur Barbiturates Screen Not Detected (NotDetected) U Tricyclic Antidepress Not Detected (NotDetected) Ur Phencyclidine Scrn Not Detected (NotDetected) Ur Amphetamines Screen Not Detected (NotDetected) U Methamphetamines Scrn Not Detected (NotDetected) U Benzodiazepines Scrn Not Detected (NotDetected) Urine Cocaine Screen Not Detected (NotDetected) U Marijuana (THC) Screen Not Detected (NotDetected) Influenza Type A (PCR) (Not Detectd) Influenza Type B (PCR) (Not Detectd) RSV (PCR) (Not Detectd) SARS-CoV-2 (PCR) (Not Detectd) 12/30/23 Range/Units 23:25 Urine Color Urine Appearance (Clear) Urine pH (5.0-8.0) Ur Specific [place] (1.001-1.035) Urine Protein (Negative) Urine Glucose (UA) (Negative) Urine Ketones (Negative) Urine Blood (Negative) Urine Nitrite (Negative) Urine Bilirubin (Negative) Urine Urobilinogen (<2.0) mg/dL Ur Leukocyte Esterase (Negative) Urine HCG, Qual (Not Detectd) Urine Opiates Screen (NotDetected) Ur Oxycodone Screen (NotDetected) Urine Methadone Screen (NotDetected) Ur Barbiturates Screen (NotDetected) U Tricyclic Antidepress (NotDetected) Ur Phencyclidine Scrn (NotDetected) Ur Amphetamines Screen (NotDetected) U Methamphetamines Scrn (NotDetected) U Benzodiazepines Scrn (NotDetected) Urine Cocaine Screen (NotDetected) U Marijuana (THC) Screen (NotDetected) Influenza Type A (PCR) Not Detected (Not Detectd) Influenza Type B (PCR) Not Detected (Not Detectd) RSV (PCR) Not Detected (Not Detectd) SARS-CoV-2 (PCR) Not Detected (Not Detectd) Disposition Clinical Impression: Acute psychosis Disposition: ADMITTED IP TO THIS HOSP Condition: Fair Is patient prescribed a controlled substance at d/c from ED?: No
[2023-12-31] MEDS ORDERED: HALOPERIDOL LACTATE 5 MG/ML 1 ML VIAL IM PRN (00:26)
[2023-12-31] MEDS ORDERED: LORazepam 2 MG/ML INJ IM PRN (00:26)
[2023-12-31] MEDS ORDERED: hydrOXYzine HCL 25 MG TAB PO PRN (00:26)
[2023-12-31] MEDS ORDERED: MAGNESIUM HYDROXIDE 2,400 MG/30 ML CUP PO PRN (00:26)
[2023-12-31] MEDS ORDERED: traZODone HCL 50 MG TAB PO PRN (00:26)
[2023-12-31] MEDS ORDERED: ACETAMINOPHEN TAB 325 MG TAB PO PRN (00:26)
[2023-12-31] MEDS ORDERED: IBUPROFEN 600 MG TAB PO PRN (00:26)
[2023-12-31 01:03] LABS: Appearance,Urine Clear (Clear); Bilirubin,Urine Negative (Negative); Blood,Urine Negative (Negative); Color,Urine Colorless; Glucose,Urine (UA) Negative (Negative); Ketones,Urine Negative (Negative); Leukocyte Esterase,Urine Negative (Negative); Nitrite,Urine Negative (Negative); Protein,Urine Negative (Negative); Specific Gravity,Urine 1.006 (1.001-1.035); Urobilinogen,Urine <2.0 mg/dL (<2.0)
[2023-12-31] MEDS: haloperidoL 5 MG TAB PO PRN (02:22)
[2023-12-31] MEDS: LORazepam 1 MG TAB PO PRN (02:58)
[2023-12-31] MEDS: NICOTINE 14MG/24HR PATCH TRANSDERM SCH (08:32)
[2023-12-31] MEDS: PANTOPRAZOLE 40 MG TABLET PO SCH (08:32)
[2023-12-31] MEDS: DOCUSATE 100 MG CAP PO SCH (08:34)
[2023-12-31 08:38] LABS: Basophils # (A) 0.1 k/uL (0-0.2); Basophils % (A) 1 %; Eosinophils % (A) 0 %; HCT 43.3 % (34.0-46.0); HGB 14.2 gm/dL (11.4-16.0); Lymphocytes # (A) 5.2 k/uL (1.0-4.8); Lymphocytes % (A) 42 %; MCH 29.8 pg (25.0-35.0); MCHC 32.9 g/dL (31.0-37.0); MCV 90.7 fL (80.0-100.0); Mean Platelet Volume 7.9; Monocytes # (A) 0.6 k/uL (0-1.0); Monocytes % (A) 5 %; Neutrophils # (A) 6.3 k/uL (1.3-7.7); Neutrophils % (A) 51 %; Platelet Count 321 k/uL (150-450); RBC 4.77 m/uL (3.80-5.40); RDW 15.2 % (11.5-15.5); WBC 12.3 k/uL (3.8-10.6)
[2023-12-31 08:47] LABS: ALT 14 U/L (4-34); AST 17 U/L (14-36); African American GFR (CKD) >90 (>60 ml/min/1.73 sqM); Albumin 3.9 g/dL (3.5-5.0); Alkaline Phosphatase 81 U/L (38-126); Anion Gap 10 mmol/L; Blood Urea Nitrogen 3 mg/dL (7-17); Calcium 9.3 mg/dL (8.4-10.2); Carbon Dioxide 21 mmol/L (22-30); Chloride 109 mmol/L (98-107); Glucose 93 mg/dL (74-99); Non-African American GFR(CKD) >90 (>60 ml/min/1.73 sqM); Potassium 3.9 mmol/L (3.5-5.1); Sodium 140 mmol/L (137-145); Total Bilirubin 0.8 mg/dL (0.2-1.3); Total Protein 6.9 g/dL (6.3-8.2)
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
[2023-12-31] MEDS: BENZTROPINE MESYLATE 0.5 MG TAB PO SCH (13:05)
[2023-12-31 15:53] LABS: Chol/HDL Ratio 3.46 Ratio; LDL Cholesterol,Calculated 94.7 mg/dL (0.0-131.0)
[2023-12-31] MEDS: cloZAPine 100 MG TAB PO SCH (20:54)
[2023-12-31] MEDS ORDERED: cloZAPine 100 MG TAB PO SCH (21:00)
--- NOTE | 2024-01-01 04:38 | P.CONS ---
History of Present Illness - Reason for Consult Consult date: 01/01/24 - History of Present Illness The patient is a 48-year-old female who had been brought to the emergency room after court ordered pickup for psychiatric evaluation. The patient had reportedly not been compliant with her medications and was acting erratically. She was admitted to the mental health unit where she was seen and evaluated while accompanied by mental health unit RN Carmita. The patient reported that she does not know why she is at the hospital and denied any active complaints. She denied experiencing chest discomfort, shortness breath, fever, chills, cough, nausea, vomiting, abdominal pain, diarrhea. She reports smoking 2 packs of cigarettes daily but denied illicit substance use. Also reports drinking alcohol socially 2-3 times a week. Review of systems: Pertinent positives and negatives as discussed in HPI, a complete review of systems was performed and all other systems are negative. Physical examination: General: non toxic, no distress, appears at stated age, overweight Derm: no unusual rashes/lesions, no unusual ecchymoses, warm, dry Head: atraumatic, normocephalic, symmetric Eyes: EOMI, no lid lag, anicteric sclera ENT: Nose and ears atraumatic, no thrush, no pharyngeal erythema Neck: trachea midline, supple Mouth: no lip lesion, mucus membranes moist Cardiovascular: S1S2 reg, no murmur, no edema Lungs: CTA bilateral, no rhonchi, no rales , no accessory muscle use Abdominal: soft, nontender to palpation, no guarding Ext: no gross muscle atrophy, no contractures, Neuro: No gross focal neuro deficits noted Psych: Alert, oriented, appropriate affect Assessment: Leukocytosis, likely due to acute stressor with no signs of active infection at this time Elevated TSH Psychosis Imaging: None performed Data Review: Laboratory evaluation was reviewed with WBC count 12.3 with urine toxicology and UA unremarkable with TSH 4.85 Plan: Monitor CBC Check T3 and T4 levels Defer management of psychosis to primary psychiatry service Thank you for allowing us to participate in the care of this patient. We will follow peripherally. Do not hesitate to contact us with questions. Someone can be reached from the [facility] hospitalist group at all hours of the day at [phone]. Past Medical History Past Medical History: No Reported History History of Any Multi-Drug Resistant Organisms: None Reported Past Surgical History: Ear Surgery Additional Past Surgical History / Comment(s): bnunion surgery on L foot Past Anesthesia/Blood Transfusion Reactions: No Reported Reaction Past Psychological History: Schizophrenia Smoking Status: Current every day smoker Past Alcohol Use History: Occasional Past Drug Use History: None Reported - Past Family History Family History Unknown: Yes Family Medical History: No Reported History Medications and Allergies Home Medications Medication Instructions Recorded Confirmed Type Divalproex [Depakote] 750 mg PO HS@2100 12/19/21 12/19/21 History cloZAPine [Clozaril] See Taper PO DIRECTED 12/19/21 12/19/21 History fluPHENAZine decanoate [Prolixin 25 mg IM Q14D 12/19/21 12/19/21 History Decanoate] traZODone HCL [Desyrel] 100 mg PO HS@209912/19/21 12/19/21 History Allergies Allergy/AdvReac Type Severity Reaction Status Date / Time No Known Allergies Allergy Verified 12/30/23 20:46 Results CBC & Chem 7: 12/31/23 07:58 12/31/23 07:58 Labs: Abnormal Lab Results - Last 24 Hours (Table) 12/31/23 12/31/23 Range/Units 07:58 07:58 WBC 12.3 H (3.8-10.6) k/uL Lymphocytes # 5.2 H (1.0-4.8) k/uL Chloride 109 H (98-107) mmol/L Carbon Dioxide 21 L (22-30) mmol/L BUN 3 L (7-17) mg/dL Triglycerides 156.00 H (0.00-149.00) mg/dL TSH 4.850 H (0.465-4.680) mIU/L
[2024-01-01 10:43] LABS: Clozapine (Clozaril) <25 ng/mL (200-700); Norclozapine <25 ng/mL (200-700)
--- NOTE | 2024-01-01 14:43 | P.PN ---
Progress Note - Text Progress Note Date: 01/01/24 Interval history: Patient was seen attending group, was directable and agreeable to speak with junior copywriter. She appears discharge focused on assessment and asks when her discharge date is. She states she has much to do after discharge, such as looking for an apartment, and is stressed thinking about her dad in the hospital and needs a place to live. Her insight appears poor, since notes state patient is aware she will go to a fdc on discharge. She appears guarded and tends to minimize the need for admission. At this time, patient denies any suicidal or homicidal ideation, intent or plan. Denies any auditory or visual hallucinations. No overtly bizarre delusional thoughts expressed. Patient denies any side effects from the medications and has been compliant with meds. She received Haldol 5 mg po x 1 and Ativan 2 mg po x 1 yesterday for agitation. Mental status exam: General Appearance: Patient appears to be stated age, hair messy, fair hygiene Behavior: No agitated behavior. Patient is calm and directable. Speech: Patient's speech is fluent and non-pressured. Mood/Affect: Mood is improving mildly, affect is somewhat blunted and constricted. Suicidality/Homicidality: Patient denies having any suicidal or homicidal ideation intent or plan. Perceptions: Patient denies any auditory or visual hallucinations. Though content/process: There is no evidence of any delusional thought content and thought process is linear and goal-directed. Memory and concentration: AOX3, grossly intact for the purposes of this session Judgment and insight: Improving mildly Assessment/Plan: Continue with current diagnosis. Patient continues to meet criteria for in patient psychiatric admission for symptom stabilization and safety. Patient will be maintained on current psychotropic medication regimen. Monitor for medication compliance and for any psychotropic medication side effects. Will continue to monitor ongoing response to treatment. Encouraged participation in milieu.
[2024-01-02] MEDS: traZODone HCL 100 MG TAB PO PRN (22:08)
[2024-01-02] MEDS: cloZAPine 25 MG TAB PO SCH (22:09)
--- NOTE | 2024-01-03 17:47 | P.PN ---
Progress Note - Text Progress Note Date: 01/02/24 Interval history: Patient was seen wandering the hallway and is eager to be seen. She is focused on discharge. She appears guarded and tends to minimize the need for admission. She is somewhat disheveled, has not showered, and was reminded to shower. At this time, patient denies any suicidal or homicidal ideation, intent or plan. Denies any auditory or visual hallucinations. No overtly bizarre delusional thoughts expressed, but she does appear a bit paranoid, tends to keep to herself. Patient denies any side effects from the medications and has been compliant with meds. Her sister (guardian), called and left a message that she does not want patient on the Prolixin decanoate injection and wants patient on the Clozapine which patient has been on for a long time. Mental status exam: General Appearance: Patient appears to be stated age, hair messy, fair hygiene Behavior: No agitated behavior. Patient is calm and directable. Speech: Patient's speech is fluent and non-pressured. Mood/Affect: Mood is improving mildly, affect is somewhat blunted and constricted. Suicidality/Homicidality: Patient denies having any suicidal or homicidal ideation intent or plan. Perceptions: Patient denies any auditory or visual hallucinations. Though content/process: There is no evidence of any delusional thought content and thought process is linear and focused on discharge. Memory and concentration: AOX3, grossly intact for the purposes of this session Judgment and insight: Improving mildly Assessment/Plan: Continue with current diagnosis. Patient continues to meet criteria for inpatient psychiatric admission for symptom stabilization and safety. Will increase Clozapine from 200 mg QHS to 250 mg QHS for psychosis/mood. Monitor for medication compliance and for any psychotropic medication side effects. Will continue to monitor ongoing response to treatment. Encouraged participation in milieu.
--- NOTE | 2024-01-03 18:27 | P.PN ---
Progress Note - Text Progress Note Date: 01/03/24 Interval history: Patient was seen wandering the hallway and is eager to be seen again today. She is focused on discharge. She appears guarded and tends to minimize the need for admission. She claims good mood, good sleep, good appetite. At this time, patient denies any suicidal or homicidal ideation, intent or plan. Denies any auditory or visual hallucinations. No overtly bizarre delusional thoughts expressed, tends to be guarded and keep to herself. Patient denies any side effects from the medications and has been compliant with meds. I called patient's sister (guardian) Jessi Babin to discuss patient's medications. Jessi reports patient does the best on Clozapine. Patient was on Clozapine 425 mg total daily dose and Prolixin decanoate FRANCO and was on a court order, and did well on this combination, but did have some Prolixin muscle rigidity, so she prefers for patient to be continued on the Clozapine only and to stop the Prolixin. Jessi confirms that patient is guarded and likely intentionally downplaying her symptoms in hopes of discharge. Jessi confirms the plan is for patient to discharge to a detention since she needs help managing her medications and maintaining compliance. Mental status exam: General Appearance: Patient appears to be stated age, hair messy, fair hygiene Behavior: No agitated behavior. Patient is calm, guarded. Speech: Patient's speech is fluent and non-pressured. Mood/Affect: Mood is improving mildly, affect is somewhat blunted and constricted. Suicidality/Homicidality: Patient denies having any suicidal or homicidal ideation intent or plan. Perceptions: Patient denies any auditory or visual hallucinations. Though content/process: There is no evidence of any delusional thought content on my assessment and thought process is linear and focused on discharge. Memory and concentration: AOX3, grossly intact for the purposes of this session Judgment and insight: Improving mildly Assessment/Plan: Continue with current diagnosis. Patient continues to meet criteria for inpatient psychiatric admission for symptom stabilization and safety. Will increase Clozapine from 250 mg QHS to 300 mg QHS for psychosis/mood. Discontinue Prolixin 2.5 mg BID in favor of continuing to titrate the Clozapine upwards. Monitor for medication compliance and for any psychotropic medication side effects. Will continue to monitor ongoing response to treatment. Encouraged participation in milieu.
[2024-01-03] MEDS: cloZAPine 100 MG TAB PO SCH (20:49)
[2024-01-04 14:43] LABS: T4, Free (Free Thyroxine) 1.22 ng/dL (0.80-1.80)
--- NOTE | 2024-01-04 20:16 | P.PN ---
Progress Note - Text Progress Note Date: 01/04/24 Interval history: Patient was seen isolating to her room and is cooperative with assessment. She appears more relaxed, less guarded and more forthcoming today. She claims good mood, good sleep, good appetite. She is up for groups and meals. At this time, patient denies any suicidal or homicidal ideation, intent or plan. Denies any auditory or visual hallucinations. No overtly bizarre delusional thoughts expressed; but she tends to intentionally keep her responses brief and avoid topics that may reveal delusional thought content. Patient denies any side effects from the medications and has been compliant with meds. Mental status exam: General Appearance: Patient appears to be stated age, hair messy, fair hygiene Behavior: No agitated behavior. Patient is calm, guarded. Speech: Patient's speech is fluent and non-pressured. Mood/Affect: Mood is improving mildly, affect is stable and euthymic. Suicidality/Homicidality: Patient denies having any suicidal or homicidal ideation intent or plan. Perceptions: Patient denies any auditory or visual hallucinations. Though content/process: There is no evidence of any delusional thought content on my assessment and thought process is generally linear and focused on discharge. Memory and concentration: AOX3, grossly intact for the purposes of this session Judgment and insight: Improving mildly Assessment/Plan: Continue with current diagnosis. Patient continues to meet criteria for inpatient psychiatric admission for symptom stabilization and safety. Will increase Clozapine from 300 mg QHS to 50 mg QAM/300 mg QHS for psychosis/mood. Decrease Benztropine from 0.5 mg BID to 0.5 mg QHS. Monitor for medication compliance and for any psychotropic medication side effects. Will continue to monitor ongoing response to treatment. Encouraged participation in milieu.
[2024-01-04] MEDS: BENZTROPINE MESYLATE 0.5 MG TAB PO SCH (20:38)
[2024-01-05] MEDS: MAG HYDROX/AL HYDROX/SIMETH 355 ML BOTTLE PO PRN (03:18)
[2024-01-05 07:17] VITALS: RESP 16
[2024-01-05] MEDS: cloZAPine 25 MG TAB PO SCH (08:13)
--- NOTE | 2024-01-05 12:40 | P.PN ---
Progress Note - Text Progress Note Date: 01/05/24 Interval History: Patient was seen wandering the hallways and was directable and agreeable to devora mary with race and sports book writer in the office. Patient states she is having quite a pleasant stay. She is sleeping well. Patient stated that she did defer with her mergers and acquisitions attorney. Patient claims that her appetite is good, and that she is going to groups. Patient offers no other complaints. At this time patient denies any suicidal or homicidal ideations, intent or plan. Patient denies any auditory, visual hallucinations and denies any paranoia or delusions. Patient denies any side effects from the medications and has been compliant with meds. Continues to have fairly superficial insight and judgment. She has been taking medications as prescribed. MENTAL STATUS EXAM: General Appearance: Patient appears to be older than stated age, is alert, directable, and attempts to cooperate. Dressed in hospital gown, wearing glasses. Patient appears to have improving hygiene and grooming. Long, dirty fingernails, unkempt hair, body odor. Disheveled appearance. Improving Behavior: Patient is seated without any agitated behavior. Patient has fair eye contact. Speech: Patient's speech is fluent and nonpressured. Mood/Affect: Patient reports their mood is "great", affect is congruent and constricted. Improving mildly Suicidality/Homicidality: Patient denies having any homicidal ideation intent or plan. Denies any suicidal ideations intent or plan Perceptions: Patient denies any visual hallucinations and denies any auditory hallucinations Though content/process: There is no evidence of any delusional thought content. Memory and concentration: AOX3, grossly intact for the purposes of this session. Judgment and insight: chronically poor, mildly improving IMPRESSIONS: Schizophrenia Nicotine dependence non adherence to medication PLAN: -Patient is admitted under involuntary status to MHU for stabilization of psychiatric symptoms and safety. Patient has not signed adult voluntary form or medication consent and is placed in patient's chart. Patient deferred with her mergers and acquisitions attorney. -Medications: Clozapine 300mg qhs, 50mg daily, trazodone 100mg qhs, prn, for sleep. Cogentin 0.5mg po qhs for EPS reactions. -Ativan and Haldol PRN for agitation/aggression -NRT - nicotine patch -SW on board for discharge planning. Encourage patient to participate in groups to work on coping skills. Patient did defer with mergers and acquisitions attorney. CM and social science research assistant are working with patient's guardian to try to get patient into prison for placement.
[2024-01-06 07:39] VITALS: BP 107/65; PULSE 85
[2024-01-06 09:06] VITALS: TEMP 96.3
[2024-01-06 09:42] LABS: Basophils % (A) 0 %; Eosinophils % (A) 0 %; HCT 41.8 % (34.0-46.0); HGB 13.6 gm/dL (11.4-16.0); Lymphocytes % (A) 39 %; MCH 29.5 pg (25.0-35.0); MCHC 32.5 g/dL (31.0-37.0); MCV 90.7 fL (80.0-100.0); Mean Platelet Volume 8.1; Monocytes # (A) 0.5 k/uL (0-1.0); Monocytes % (A) 5 %; Neutrophils # (A) 5.4 k/uL (1.3-7.7); Neutrophils % (A) 54 %; Platelet Count 347 k/uL (150-450); RBC 4.61 m/uL (3.80-5.40); RDW 15.6 % (11.5-15.5); WBC 10.2 k/uL (3.8-10.6)
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
== END 2024-01-06 14:07 | disposition home or self-care (01) | DRG 885 ==
LOC: EC 20:40 → 3MHU 12-31 00:21
PROVIDERS: ADMIT Psychiatry & Neurology Psychiatry; ATTEND Psychiatry & Neurology Psychiatry
DX: F20.9 Schizophrenia, unspecified (principal); Z59.01 Sheltered homelessness; F41.9 Anxiety disorder, unspecified; D72.829 Elevated white blood cell count, unspecified; R94.6 Abnormal results of thyroid function studies; R45.1 Restlessness and agitation; F17.210 Nicotine dependence, cigarettes, uncomplicated; Z28.310 Unvaccinated for COVID-19; Z79.899 Other long term (current) drug therapy; Z91.148 Patient's other noncompliance with medication regimen for other reason
CPT/HCPCS: 80053; 80061; 80159; 80306; 81003; 81025; 82075; 83036; 84439; 84443; 84481; 85025; 87636; 99285

== ENCOUNTER → 2024-02-29 | Outpatient (CLI) | payer MEDICARE ==
--- NOTE | 2024-03-01 08:08 | MM ---
Reason for Exam: Screening (asymptomatic). Last mammogram was performed 1 year(s) and 10 month(s) ago. Patient History: Menarche at age 14. Patient has no children. Risk Values: Deanne 5 year model risk: 0.9%. NCI Lifetime model risk: 9.2%. Prior Study Comparison: 11/30/2019 Bilateral MG 3D screening mammo w/cad, [place]. 02/22/2021 Bilateral MG 3D screening mammo w/cad, [place]. 05/01/2022 Bilateral MG 3D screening mammo w/cad, [facility]. Tissue Density: The breasts are heterogeneously dense, which may obscure small masses. Findings: Analyzed By CAD. There is a 6 mm nodule in the outer margin of the left breast with obscured margins. There is a 6 mm nodule in the inner lower margin of the left breast. Spot compression of both areas recommended. Benign-appearing calcifications. Overall Assessment: Incomplete: need additional imaging evaluation, BI-RAD 0 Management: Diagnostic Mammogram of the left breast. . Patient should continue monthly self-breast exams. A clinical breast exam by your physician is recommended on an annual basis. This exam should not preclude additional follow-up of suspicious palpable abnormalities. Note on Deanne scores and lifetime risk: 1. A Deanne score greater than 3% is considered moderate risk. If this is the case, consider specialist referral to assess eligibility for a risk reducing agent. 2. If overall lifetime risk for the development of breast cancer is 20% or higher, the patient may qualify for future screening with alternating mammogram and breast MRI. Electronically signed and approved by: Mack Reina M.D. Radiologis
== END | disposition home or self-care (01) ==
LOC: RADMAMWWP 12:52
PROVIDERS: ATTEND Family Medicine
DX: Z12.31 Encounter for screening mammogram for malignant neoplasm of breast (principal)
CPT/HCPCS: 77063; 77067

== ENCOUNTER → 2024-03-11 | Outpatient (CLI) | payer MEDICARE ==
--- NOTE | 2024-03-11 14:11 | MM ---
Reason for Exam: Additional evaluation requested from abnormal screening. Last screening mammogram was performed less than 1 month ago. Patient History: Menarche at age 14. Patient has no children. Last menstrual period: 03/06/2024 Risk Values: Deanne 5 year model risk: 0.9%. NCI Lifetime model risk: 9.2%. Prior Study Comparison: 02/22/2021 Bilateral MG 3D screening mammo w/cad, [place]. 05/01/2022 Bilateral MG 3D screening mamm[facility] w[facility]cad, [facility]. 02/29/2024 Bilateral MG 3D screening mammo w/cad, [facility]. Tissue Density: Left: There are scattered areas of fibroglandular density. Findings: Analyzed By CAD. Under compression craniocaudal view there is a 0.6 cm nodularity which is persistent. This is 9 cm from the nipple 3:00 position. Additional workup with ultrasound is recommended. The focal asymmetry in the medial left breast does not appear persistent. Overall Assessment: Incomplete: need additional imaging evaluation, BI-RAD 0 Management: Diagnostic Breast Ultrasound of the left breast. A negative mammogram report should not preclude additional follow up of suspicious palpable abnormalities. Patient should continue monthly self breast exam. A clinical breast exam by your physician is recommended on an annual basis and results should be correlated with mammographic findings. Note on Deanne scores and lifetime risk: 1. A Deanne score greater than 3% is considered moderate risk. If this is the case, consider specialist referral to assess eligibility for a risk reducing agent. 2. If overall lifetime risk for the development of breast cancer is 20% or higher, the patient may qualify for future screening with alternating mammogram and breast MRI. Electronically signed and approved by: Gael Leggett D.O. Radiologis
--- NOTE | 2024-03-11 14:25 | USB ---
Reason for Exam: Additional evaluation requested from abnormal screening. Patient History: Menarche at age 14. Patient has no children. Risk Values: Deanne 5 year model risk: 0.9%. NCI Lifetime model risk: 9.2%. Technique: Method: Targeted. Prior Study Comparison: 02/22/2021 Bilateral MG 3D screening mammo w/cad, [place]. 05/01/2022 Bilateral MG 3D screening mammo w/cad, [facility]. 02/29/2024 Bilateral MG 3D screening mammo w/cad, [facility]. Findings: The lateral section of the breast of the left breast, the axilla of the left breast and the retroareolar of the left breast were scanned. There is a cluster of tiny cysts at the 3:00 position 9 cm this correlates with the mammographic findings.. Overall Assessment: Probably benign, BI-RAD 3 Management: Screening Mammogram of both breasts in 1 year. A clinical breast exam by your physician is recommended on an annual basis and results should be correlated with mammographic findings. This exam should not preclude additional follow-up of suspicious palpable abnormalities. Results were given to the patient verbally at the time of exam. Electronically signed and approved by: Gael Leggett D.O. Radiologis
== END | disposition home or self-care (01) ==
LOC: RADMAMWWP 13:28
PROVIDERS: ATTEND Family Medicine
DX: R92.8 Other abnormal and inconclusive findings on diagnostic imaging of breast (principal)
CPT/HCPCS: 77065; 76642; G0279; 77061

== ENCOUNTER → 2024-04-20 | Outpatient (CLI) | payer MEDICARE, OTHER ==
--- NOTE | 2024-04-20 12:48 | XR ---
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 TECHNIQUE: XR chest 2V Frontal view of the chest. FINDINGS: Lungs/Pleura: There is no evidence of pleural effusion, focal consolidation, or pneumothorax. Pulmonary vascularity: Unremarkable. Heart/mediastinum: Cardiomediastinal silhouette is unremarkable. Musculoskeletal: No acute osseous pathology. IMPRESSION: No acute cardiopulmonary disease/process.
== END | disposition home or self-care (01) ==
LOC: RADXRMAIN 11:41
PROVIDERS: ATTEND Nurse Practitioner Family
DX: Z71.3 Dietary counseling and surveillance (principal)
CPT/HCPCS: 71046

== ENCOUNTER 2024-06-20 20:02 | Inpatient (IN) | payer MEDICARE, MEDICAID ==
--- NOTE | 2024-06-20 21:40 | ED ---
General Adult HPI - General Chief complaint: Psychiatric Symptoms Stated complaint: Mental Health -Petitioned Time Seen by Provider: 06/20/24 21:15 Source: police, RN notes reviewed, old records reviewed Mode of arrival: ambulatory Limitations: no limitations - History of Present Illness Initial comments: 49-year-old female presenting for mental health evaluation. Patient is delusional. She has court ordered petition for evaluation. She has been not been taking her medications. Patient denies physical complaints. - Related Data Previous Rx's Medication Instructions Recorded Benztropine Mesylate [Cogentin] 0.5 mg PO HS 30 Days #30 tab 01/06/24 Docusate [Colace] 100 mg PO BID 30 Days #60 cap 01/06/24 Ibuprofen [Motrin] 600 mg PO TID PRN tab 01/06/24 Nicotine 14Mg/24Hr Patch [Habitrol] 1 patch TRANSDERM DAILY 14 Days 01/06/24 #14 patch Pantoprazole [Protonix] 40 mg PO AC-BRKFST 30 Days #30 tab 01/06/24 cloZAPine [Clozaril] 50 mg PO DAILY 7 Days #14 tab 01/06/24 cloZAPine [Clozaril] 300 mg PO HS 7 Days #21 tab 01/06/24 traZODone HCL [Desyrel] 100 mg PO HS PRN 30 Days #30 tab 01/06/24 Allergies Allergy/AdvReac Type Severity Reaction Status Date / Time No Known Allergies Allergy Verified 06/20/24 20:07 Review of Systems ROS Statement: Those systems with pertinent positive or pertinent negative responses have been documented in the HPI. ROS Other: All systems not noted in ROS Statement are negative. Past Medical History Past Medical History: No Reported History History of Any Multi-Drug Resistant Organisms: None Reported Past Surgical History: Ear Surgery Additional Past Surgical History / Comment(s): bnunion surgery on L foot Past Anesthesia/Blood Transfusion Reactions: No Reported Reaction Past Psychological History: Schizophrenia Smoking Status: Current every day smoker Past Alcohol Use History: Occasional Past Drug Use History: None Reported - Past Family History Family History Unknown: Yes Family Medical History: No Reported History General Exam Limitations: no limitations General appearance: alert, in no apparent distress Head exam: Present: atraumatic, normocephalic Eye exam: Present: normal appearance, PERRL ENT exam: Present: normal exam Neck exam: Present: normal inspection. Absent: tenderness, meningismus Respiratory exam: Present: normal lung sounds bilaterally. Absent: respiratory distress, wheezes Cardiovascular Exam: Present: regular rate, normal rhythm GI/Abdominal exam: Present: soft. Absent: distended, tenderness, guarding Extremities exam: Present: normal inspection, normal capillary refill Neurological exam: Present: alert, oriented X3 Psychiatric exam: Present: other (Delusional) Skin exam: Present: warm, dry, intact Course Vital Signs 06/20/24 20:04 Temperature 97.8 F Pulse Rate 117 H Respiratory 16 Rate Blood Pressure 121/72 O2 Sat by Pulse 99 Oximetry - Reevaluation(s) Reevaluation #1: 06/20/24 21:39 Cleared for mental health evaluation Medical Decision Making - Medical Decision Making Was pt. sent in by a medical professional or institution (, PA, CORE BLOWER OPERATOR, urgent care, hospital, or senior living...) When possible be specific @ -No Did you speak to anyone other than the patient for history (EMS, parent, family, police, friend...)? What history was obtained from this source @ -No Did you review nursing and triage notes (agree or disagree)? Why? @ -I reviewed and agree with nursing and triage notes Were old charts reviewed (outside hosp., previous admission, EMS record, old EKG, old radiological studies, urgent care reports/EKG's, senior living records)? Report findings @ -No old charts were reviewed Differential Mental Health Depression, anxiety, bipolar, psychosis, schizophrenia, borderline personality, situational depression, adjustment disorder, behavioral disorder, brain tumor, malingering, substance abuse, encephalopathy, medication reaction, dementia, hypothyroidism, degenerative neurologic disorder, lupus.... This is not meant to be all-inclusive list EKG interpreted by me (3pts min.). @ -As above X-rays interpreted by me (1pt min.). @ -None done CT interpreted by me (1pt min.). @ -None done U/S interpreted by me (1pt. min.). @ -None done What testing was considered but not performed or refused? (CT, X-rays, U/S, labs)? Why? @ -None What meds were considered but not given or refused? Why? @ -None Did you discuss the management of the patient with other professionals (professionals i.e. , PA, CORE BLOWER OPERATOR, lab, RT, psych nurse, social welfare clerk, painting and coating worker, teacher, department of natural resources officer, patient case coordinator)? Give summary @ -No Was smoking cessation discussed for >3mins.? @ -No Was critical care preformed (if so, how long)? @ -No Were there social determinants of health that impacted care today? How? (Homelessness, low income, unemployed, alcoholism, drug addiction, transportation, low edu. Level, literacy, decrease access to med. care, alf, rehab)? @ -No Was there de-escalation of care discussed even if they declined (Discuss DNR or withdrawal of care, Hospice)? DNR status @ -No What co-morbidities impacted this encounter? (DM, HTN, Smoking, COPD, CAD, Cancer, CVA, ARF, Chemo, Hep., AIDS, mental health diagnosis, sleep apnea, morbid obesity)? @ -None Was patient admitted / discharged? Hospital course, mention meds given and route, prescriptions, significant lab abnormalities, going to OR and other pertinent info. @Medically cleared for mental health evaluation by EPS. Will be admitted for evaluation of acute psychosis Undiagnosed new problem with uncertain prognosis? @ -No Drug Therapy requiring intensive monitoring for toxicity (Heparin, Nitro, Insulin, Cardizem)? @ -No Were any procedures done? @ -No Diagnosis/symptom? @Acute psychosis Acute, or Chronic, or Acute on Chronic? @ -Acute Uncomplicated (without systemic symptoms) or Complicated (systemic symptoms)? @ -Default Side effects of treatment? @ -No Exacerbation, Progression, or Severe Exacerbation? @ -No Poses a threat to life or bodily function? How? (Chest pain, USA, [place], pneumonia, PE, COPD, DKA, ARF, appy, cholecystitis, CVA, Diverticulitis, Homicidal, Suicidal, threat to staff... and all critical care pts) @ -No - Lab Data Lab Results 06/20/24 Range/Units 20:10 Influenza Type A (PCR) Not Detected (Not Detectd) Influenza Type B (PCR) Not Detected (Not Detectd) RSV (PCR) Not Detected (Not Detectd) SARS-CoV-2 (PCR) Not Detected (Not Detectd) Disposition Clinical Impression: Delusions, Acute psychosis Disposition: ADMITTED IP TO THIS HOSP Condition: Stable Is patient prescribed a controlled substance at d/c from ED?: No Time of Disposition: 23:29
[2024-06-20] MEDS ORDERED: IBUPROFEN 600 MG TAB PO PRN (22:57)
[2024-06-20] MEDS ORDERED: ACETAMINOPHEN TAB 325 MG TAB PO PRN (22:59)
[2024-06-20] MEDS ORDERED: HALOPERIDOL LACTATE 5 MG/ML 1 ML VIAL IM PRN (22:59)
[2024-06-20] MEDS ORDERED: MAGNESIUM HYDROXIDE 2,400 MG/30 ML CUP PO PRN (22:59)
[2024-06-20] MEDS ORDERED: LORazepam 2 MG/ML INJ IM PRN (22:59)
[2024-06-20] MEDS ORDERED: haloperidoL 5 MG TAB PO PRN (22:59)
[2024-06-21] MEDS: cloZAPine 25 MG TAB PO SCH (09:26)
[2024-06-21] MEDS: PANTOPRAZOLE 40 MG TABLET PO SCH (09:26)
[2024-06-21] MEDS: DOCUSATE 100 MG CAP PO SCH (09:27)
[2024-06-21] MEDS: NICOTINE 14MG/24HR PATCH TRANSDERM SCH (09:27)
[2024-06-21 11:07] LABS: Appearance,Urine Cloudy (Clear); Bacteria,Urine Rare /hpf; Bilirubin,Urine Negative (Negative); Blood,Urine Negative (Negative); Color,Urine Colorless; Glucose,Urine (UA) Negative (Negative); Ketones,Urine Negative (Negative); Leukocyte Esterase,Urine Negative (Negative); Mucus,Urine Rare /hpf; Nitrite,Urine Negative (Negative); Protein,Urine Negative (Negative); Specific Gravity,Urine 1.008 (1.001-1.035); Squamous Epithelial Cell,Urine 7 /hpf (0-4); Urobilinogen,Urine <2.0 mg/dL (<2.0); WBC,Urine 1 /hpf (0-5)
[2024-06-21] MEDS: MAG HYDROX/AL HYDROX/SIMETH 355 ML BOTTLE PO PRN (11:50)
--- NOTE | 2024-06-21 12:09 | P.HP ---
Psychiatric H&P - . H&P Date: 06/21/24 History & Physical: Allergies Allergy/AdvReac Type Severity Reaction Status Date / Time No Known Allergies Allergy Verified 06/20/24 20:07 Vital Signs Temp 97.7 F 06/21/24 11:20 Pulse 87 06/21/24 11:20 Resp 18 06/21/24 00:06 BP 120/81 06/21/24 11:20 Pulse Ox 97 06/21/24 11:20 FiO2 Intake & Output 06/20/24 06/21/24 06/21/24 18:59 06:59 18:59 Weight 280 kg Laboratory Last Values Urine Color Colorless 06/21/24 10:38 Urine Appearance Cloudy (Clear) H 06/21/24 10:38 Urine pH 6.0 (5.0-8.0) 06/21/24 10:38 Ur Specific [place] 1.008 (1.001-1.035) 06/21/24 10:38 Urine Protein Negative (Negative) 06/21/24 10:38 Urine Glucose (UA) Negative (Negative) 06/21/24 10:38 Urine Ketones Negative (Negative) 06/21/24 10:38 Urine Blood Negative (Negative) 06/21/24 10:38 Urine Nitrite Negative (Negative) 06/21/24 10:38 Urine Bilirubin Negative (Negative) 06/21/24 10:38 Urine Urobilinogen <2.0 mg/dL (<2.0) 06/21/24 10:38 Ur Leukocyte Esterase Negative (Negative) 06/21/24 10:38 Urine WBC 1 /hpf (0-5) 06/21/24 10:38 Ur Squamous Epith Cells 7 /hpf (0-4) H 06/21/24 10:38 Urine Bacteria Rare /hpf (None) H 06/21/24 10:38 Urine Mucus Rare /hpf (None) H 06/21/24 10:38 Influenza Type A (PCR) Not Detected (Not Detectd) 06/20/24 20:10 Influenza Type B (PCR) Not Detected (Not Detectd) 06/20/24 20:10 RSV (PCR) Not Detected (Not Detectd) 06/20/24 20:10 SARS-CoV-2 (PCR) Not Detected (Not Detectd) 06/20/24 20:10 06/21/24 11:52 IDENTIFYING DATA: Patient is a Patient is a 49-year-old female who has no kids. Her sister is her guardian. History of chronic schizophrenia. Patient currently resides at [facility] HPI: Patient presented to the hospital yesterday, she was brought in by police on a pickup order. Patient apparently is on an active deferral through the hospital which expires in 1 week. Patient apparently has not been going to her [facility] appointment and has has not been consistently taking her medications at the custodial according to [facility] liaison. Patient is currently on Prolixin D a weekly injection and also taking Clozaril at nighttime. Patient was last admitted to the mental health unit in December 2023. She was agreeable to speak wi th creative writer today in the office. Patient appears to have a mildly disheveled appearance, overweight. She was crying during the interview states that she felt that she could not come down the stairs to get her medications. Claims that she "canceled my appointment" with Dr. Verma her psychiatrist at [facility]. States that the police picked her up and brought her to the hospital. She was a fairly poor historian, she is denying any delusions at this time denying any paranoia. Claims that she does not feel she needs to be in the hospital. She claims that she is feeling sad because she does not see her family much. Denies any current depression at this time or anxiety. States that her sleep is fair, patient denies any flight of ideas racing thoughts. Patient stated she needs to get out of here and go home. dneies any current AH or Vh and denies any SI or HI. Patient smokes cigarettes. PAST PSYCHIATRIC HISTORY: Patient has history of schizophrenia. She claims that she has been on several different medications in the past including Risperdal and clozapine, previously on Prolixin D. She claims that she has been hospitalized several times in the past. She has been hospitalized several times at [facility], last hospitalization was in December 2023. Patient was also recently psychiatrically hospitalized out of state in [place]. Patient denies any history of suicide attempts in the past. Patient currently follows up at [facility] with Dr. Verma as her psychiatrist. PMH:As per ER note ALLERGIES: as per EMR CHEMICAL DEPENDENCY HISTORY: as per HPI FAMILY PSYCHIATRIC/SUBSTANCE USE HISTORY: denies SOCIAL HISTORY: Patient was born and raised in [place]. She states that she has a bachelor's degree in finance from [employer]. She claims that she has no kids. She states that she is to the head of the [facility]. She is currently residing at [facility]. She denies ever going to senior living or longterm. MENTAL STATUS EXAM: General Appearance: Patient appears to be older than stated age, is alert, directable, and attempts to cooperate. Dressed in hospital gown, wearing glasses. Patient appears to have poor hygiene and grooming, unkempt hair. Disheveled appearance. Behavior: Patient is seated without any agitated behavior. Patient has fair eye contact. Argumentative at times, irritable. Speech: Patient's speech is fluent and nonpressured. Mood/Affect: Patient reports their mood is "fine", affect is congruent and tearful, labile Suicidality/Homicidality: Patient denies having any homicidal ideation intent or plan. Denies any suicidal ideations intent or plan Perceptions: Patient denies any visual hallucinations and denies any auditory hallucinations Though content/process: There is no evidence of delusional content. Focused on her medications. Illogical at times. Memory and concentration: AOX3, grossly intact for the purposes of this session. Can spell "WORLD" backwards Judgment and insight: chronically poor STRENGTHS/WEAKNESSES: strength is that patient is resilient. Weakness is that patient has poor judgment and is impulsive and noncompliant with medications INTELLECT: average IMPRESSIONS: Schizophrenia Nicotine dependence non adherence to medication David PLAN: -Patient is admitted under involuntary status to MHU for stabilization of psychiatric symptoms and safety. Patient has not signed adult voluntary form or medication consent and is placed in patient's chart. Patient is currently on a deferral, demand for hearing was faxed today to the court, awaiting hearing date. -Medications : Will start patient on Prolixin 2.5mg bid for psychosis, plan to titrate up, with plan to transition patient back onto Prolixin D long-acting injection to help ensure compliance. Restarted Clozapine at a lower dose 200mg at bedtime, trazodone 100mg qhs prn, for sleep. Cogentin 0.5mg po bid for EPS reactions. -Ativan and Haldol PRN for agitation/aggression -Patient was informed of the risks, benefits and side effects of the medication -Internal Medicine consult to perform medical evaluation and physical. -NRT - nicotine patch -SW on board for discharge planning. Encourage patient to participate in groups to work on coping skills. Will await demand for hearing date.
[2024-06-21 15:43] LABS: Anisocytosis Slight; Basophils % (A) 0 %; Eosinophils % (A) 0 %; HCT 39.6 % (34.0-46.0); HGB 12.8 gm/dL (11.4-16.0); Lymphocytes # (A) 3.5 k/uL (1.0-4.8); Lymphocytes % (A) 29 %; MCH 27.7 pg (25.0-35.0); MCHC 32.3 g/dL (31.0-37.0); MCV 85.7 fL (80.0-100.0); Mean Platelet Volume 7.5; Monocytes # (A) 0.5 k/uL (0-1.0); Monocytes % (A) 4 %; Neutrophils % (A) 65 %; Platelet Count 313 k/uL (150-450); RBC 4.62 m/uL (3.80-5.40); RDW 18.3 % (11.5-15.5); WBC 12.4 k/uL (3.8-10.6)
[2024-06-21 15:54] LABS: ALT 23 U/L (4-34); AST 18 U/L (14-36); African American GFR (CKD) >90 (>60 ml/min/1.73 sqM); Albumin 3.9 g/dL (3.5-5.0); Alkaline Phosphatase 103 U/L (38-126); Anion Gap 6 mmol/L; Blood Urea Nitrogen 10 mg/dL (7-17); Calcium 9.3 mg/dL (8.4-10.2); Carbon Dioxide 24 mmol/L (22-30); Chloride 108 mmol/L (98-107); Glucose 95 mg/dL (74-99); Non-African American GFR(CKD) 81 (>60 ml/min/1.73 sqM); Potassium 4.3 mmol/L (3.5-5.1); Sodium 138 mmol/L (137-145); Total Bilirubin 0.5 mg/dL (0.2-1.3); Total Protein 6.8 g/dL (6.3-8.2)
[2024-06-21] MEDS: BENZTROPINE MESYLATE 0.5 MG TAB PO SCH (20:36)
[2024-06-21] MEDS: cloZAPine 100 MG TAB PO SCH (20:37)
[2024-06-21] MEDS ORDERED: cloZAPine 100 MG TAB PO SCH (21:00)
[2024-06-21] MEDS ORDERED: BENZTROPINE MESYLATE 0.5 MG TAB PO SCH (21:00)
[2024-06-22 02:51] LABS: Chol/HDL Ratio 2.45 Ratio; LDL Cholesterol,Calculated 35.7 mg/dL (0.0-131.0)
--- NOTE | 2024-06-22 11:17 | P.PN ---
Progress Note - Text Progress Note Date: 06/22/24 Interval History: Patient was seen in her room and was directable and agreeable to speak with wr iter at the bedside. She states that she is feeling a bit better today. She is attending groups. She claims to have slept well last night. and her appetite is good. The patient is more cooperative with underwriter mortgage loan today. At this time patient denies any suicidal or homicidal ideations, intent or plan. Patient denies any auditory, visual hallucinations and denies any paranoia or delusions. Patient denies any side effects from the medications and has been compliant with meds. MENTAL STATUS EXAM: General Appearance: Patient appears to be older than stated age, is alert, directable, and attempts to cooperate. Dressed casually, wearing glasses. Patient appears to have poor hygiene and grooming, unkempt hair. Disheveled appearance. Behavior: Patient is seated without any agitated behavior. Patient has fair eye contact. More cooperative today Speech: Patient's speech is fluent and nonpressured. Mood/Affect: Patient reports their mood is "better", affect is congruent and constricted, improving mildly Suicidality/Homicidality: Patient denies having any homicidal ideation intent or plan. Denies any suicidal ideations intent or plan Perceptions: Patient denies any visual hallucinations and denies any auditory hallucinations Though content/process: There is no evidence of delusional content. thought process is more linear today. Memory and concentration: AOX3, grossly intact for the purposes of this session. Judgment and insight: chronically poor IMPRESSIONS: Schizophrenia Nicotine dependence non adherence to medication David PLAN: -Patient is admitted under involuntary status to MHU for stabilization of psychiatric symptoms and safety. Patient has not signed adult voluntary form or medication consent and is placed in patient's chart. Patient's demand for hearing date is scheduled for 06/29 -Medications :increase Prolixin 2.5mg daily + 5mg QHS for psychosis, plan to titrate up, with plan to transition patient back onto Prolixin D long-acting injection to help ensure compliance. Clozapine 200mg at bedtime, trazodone 100mg qhs prn, for sleep. Cogentin 0.5mg po bid for EPS reactions. -Ativan and Haldol PRN for agitation/aggression -NRT - nicotine patch -SW on board for discharge planning. Encourage patient to participate in groups to work on coping skills. Hearing date scheduled for 06/29. Would likely need to transition patient onto long-acting injection prior to discharge. She would likely be going back to [facility]
[2024-06-22 18:36] LABS: Urine Alcohol Negative (Negative); Urine Barbiturate Negative (Negative); Urine Cocaine Negative (Negative); Urine Methadone Negative (Negative); Urine Opiates Negative (Negative); Urine Phencyclidine Negative (Negative)
--- NOTE | 2024-06-22 21:46 | P.MDCNMH ---
<Yi Smith - Last Filed: 06/22/24 21:52> History of Present Illness H&P Date: 06/22/24 Patient is a 49-year-old female who presented to the ED for a mental health evaluation on 06/20/2024. The patient was delusional and has a court ordered petition for evaluation. She has a history of chronic schizophrenia. She me ntions having acid reflux. Denies fever, chills, chest pain, palpitations, shortness of breath, cough, nausea, vomiting, diarrhea, lightheadedness. Labs: Elevated WBC 12.4, chloride 108 Lipid panel: Cholesterol 110, Triglycerides 147, LDL 35.7 WNL TSH: 1.860 WNL UA: Cloudy, 7 squamous epithelial cells, rare bacteria and mucus Toxicology: Negative Respiratory panel: Negative Review of systems: Pertinent positives and negatives as discussed in HPI, a complete review of systems was performed and all other systems are negative. PMH: GERD FMH: Valvular disease, multiple myeloma Allergies: None Social history: Tobacco: Current everyday smoker, 1.5 packs a day for 13 years Alcohol: Occasional Recreational drugs: Denies use Travel: No recent travel history Sick contacts: None Physical examination: Vitals: T97.7F, pulse 93, RR 18, BP BP 138/85, O2 sat 97% on room air General: non toxic, no distress, appears at stated age, obese Derm: no unusual rashes/lesions, warm Head: atraumatic, normocephalic, symmetric ENT: Nose and ears atraumatic Mouth: no lip lesion, mucus membranes moist Cardiovascular: S1S2 reg, no murmur, no edema Lungs: CTA bilateral, no rhonchi, no rales, no accessory muscle use Ext: no gross muscle atrophy, no contractures, Neuro: CN II-XI grossly intact, no gross focal neuro deficits Psych: Alert, oriented Assessment/Plan: Patient is a 49-year-old female who presented to the ED for mental health evaluation. We have been consulted for medical management. #. History of GERD Continue Protonix 40 mg daily #. Constipation Continue Maalox 30 mL p.o. every 4 hours as needed and milk of magnesia 2400 mg p.o. daily as needed #. Tobacco dependence Continue nicotine patch 14 mg/ 24 hours Education about smoking cessation #. Leukocytosis Elevated WBC 12.4 Monitor CBC #. Schizophrenia Patient being managed at the mental health unit Patient currently on clozapine, fluphenazine, haloperidol, lorazepam, benztropine, trazodone Mental health precautions F: None E: Replete as required N: Regular diet A: Ambulatory Past Medical History Past Medical History: No Reported History History of Any Multi-Drug Resistant Organisms: None Reported Past Surgical History: Ear Surgery Additional Past Surgical History / Comment(s): bnunion surgery on L foot Past Anesthesia/Blood Transfusion Reactions: No Reported Reaction Past Psychological History: Schizophrenia Smoking Status: Current every day smoker Past Alcohol Use History: Occasional Past Drug Use History: None Reported - Past Family History Family History Unknown: Yes Family Medical History: No Reported History Medications and Allergies Home Medications Medication Instructions Recorded Confirmed Type Benztropine Mesylate [Cogentin] 0.5 mg PO HS 30 Days #30 tab 01/06/24 Rx Docusate [Colace] 100 mg PO BID 30 Days #60 cap 01/06/24 Rx Ibuprofen [Motrin] 600 mg PO TID PRN tab 01/06/24 Rx Nicotine 14Mg/24Hr Patch [Habitrol] 1 patch TRANSDERM DAILY 14 Days 01/06/24 Rx #14 patch Pantoprazole [Protonix] 40 mg PO AC-BRKFST 30 Days #30 tab 01/06/24 Rx cloZAPine [Clozaril] 50 mg PO DAILY 7 Days #14 tab 01/06/24 Rx cloZAPine [Clozaril] 300 mg PO HS 7 Days #21 tab 01/06/24 Rx traZODone HCL [Desyrel] 100 mg PO HS PRN 30 Days #30 tab 01/06/24 Rx Allergies Allergy/AdvReac Type Severity Reaction Status Date / Time No Known Allergies Allergy Verified 06/20/24 20:07 Physical Exam Vitals: Vital Signs Temp Pulse Resp BP Pulse Ox 06/22/24 21:01 102 H 111/73 06/22/24 06:50 97.7 F 93 18 138/85 97 Intake and Output 06/22/24 06/22/24 06/22/24 06:59 14:59 22:59 Other: Weight 120.684 kg Results CBC & Chem 7: 06/21/24 15:19 06/21/24 15:19 <Deni Comer M - Last Filed: 06/23/24 00:32> History of Present Illness Chief Complaint: medical eval I have seen and evaluated the patient today. I Discussed the case with the resident and agree with the resident's findings I edited the assessment and plan as necessary as documented in the resident's note. Physical Exam Vitals: Vital Signs Temp Pulse Resp BP Pulse Ox 06/22/24 21:01 102 H 111/73 06/22/24 06:50 97.7 F 93 18 138/85 97 Intake and Output 06/22/24 06/22/24 06/23/24 14:59 22:59 06:59 Other: Weight 120.684 kg Cranial Nerve Examination - Cranial Nerves Cranial Nerve II- Optic: Intact Cranial Nerve III- Oculomotor: Intact Cranial Nerve IV- Trochlear: Intact Cranial Nerve V- Trigeminal: Intact Cranial Nerve - Abducens: Intact Cranial Nerve VII- Facial: Intact Cranial Nerve VIII- Auditory: Intact Cranial Nerve IX- Glossopharyngeal: Intact Cranial Nerve X- Vagus: Intact Cranial Nerve XI- Accessory: Intact Cranial Nerve XII- Hypoglossal: Intact Results CBC & Chem 7: 06/21/24 15:19 06/21/24 15:19
[2024-06-23] MEDS ORDERED: CALCIUM CARBONATE 500 MG CHEWABLE PO PRN (01:34)
[2024-06-23] MEDS ORDERED: ONDANSETRON ODT 4 MG TAB PO PRN (01:34)
--- NOTE | 2024-06-23 11:07 | P.PN ---
Progress Note - Text Progress Note Date: 06/23/24 Interval History: Patient was seen in her room and was directable and agreeable to speak with wr iter at the bedside. She states that she is feeling great. She states she wanted to take her meds while at the [facility], however, she was scared of falling down the steps to go down and get them. [employer] Remover spoke with patient about getting back on the FRANCO Prolixin D, patient agreeable. We do have to wait for the demand hearing on 06/29. Patient verbalized understanding. The patient states she slept well last night, and that her appetite is very good. Patients appearance remains disheveled, and she is malodorous. Encouraged patient to shower. Patient did mention to fiction and nonfiction writer prose that her father is the head of the [employer]. At this time patient denies any suicidal or homicidal ideations, intent or plan. Patient denies any auditory, visual hallucinations and denies any paranoia or delusions. Patient denies any side effects from the medications and has been compliant with meds. MENTAL STATUS EXAM: General Appearance: Patient appears to be older than stated age, is alert, directable, and attempts to cooperate. Dressed casually, wearing glasses. Patient appears to have poor hygiene and grooming, unkempt hair. Disheveled appearance. Behavior: Patient is seated without any agitated behavior. Patient has fair eye contact. More cooperative today Speech: Patient's speech is fluent and nonpressured. Mood/Affect: Patient reports their mood is "great", affect is congruent and constricted, improving mildly Suicidality/Homicidality: Patient denies having any homicidal ideation intent or plan. Denies any suicidal ideations intent or plan Perceptions: Patient denies any visual hallucinations and denies any auditory hallucinations Though content/process: There is no evidence of delusional content. thought process is more linear today. Memory and concentration: AOX3, grossly intact for the purposes of this session. Judgment and insight: chronically poor IMPRESSIONS: Schizophrenia Nicotine dependence non adherence to medication David PLAN: -Patient is admitted under involuntary status to [facility] for stabilization of psychiatric symptoms and safety. Patient has not signed adult voluntary form or medication consent and is placed in patient's chart. Patient's demand for hear ing date is scheduled for 06/29 -Medications : Prolixin 2.5mg daily + 5mg QHS for psychosis, plan to titrate up, with plan to transition patient back onto Prolixin D long-acting injection to help ensure compliance. Clozapine 200mg at bedtime, trazodone 100mg qhs prn, for sleep. Cogentin 0.5mg po bid for EPS reactions. -Ativan and Haldol PRN for agitation/aggression -NRT - nicotine patch -SW on board for discharge planning. Encourage patient to participate in groups to work on coping skills. Hearing date scheduled for 06/29, will attempt to reach out to patients vice president & general manager [employer] [place] to inquire about possibly signing a waive and stip. Would likely need to transition patient onto long-acting injection prior to discharge. She would likely be going back to [facility]
--- NOTE | 2024-06-24 11:03 | P.PN ---
Progress Note - Text Progress Note Date: 06/24/24 Interval History: Patient was seen in her room and was directable and agreeable to speak with wr iter at the bedside. She states that she is feeling good today. She claims that she slept well last night. She did sign a waive and stip with her deputy commonwealth's attorney, and will need to be transitioned onto a FRANCO prior to discharge. Patient agreeable. She endorses a good appetite. Patient denies any muscle stiffness. At this time patient denies any suicidal or homicidal ideations, intent or plan. Patient denies any auditory, visual hallucinations and denies any paranoia or delusions. Patient denies any side effects from the medications and has been compliant with meds. MENTAL STATUS EXAM: General Appearance: Patient appears to be older than stated age, is alert, directable, and attempts to cooperate. Dressed casually, wearing glasses. Patient appears to have poor hygiene and grooming, unkempt hair. Disheveled appearance. Behavior: Patient is seated without any agitated behavior. Patient has fair eye contact. cooperative today Speech: Patient's speech is fluent and nonpressured. Mood/Affect: Patient reports their mood is "great", affect is congruent and constricted, improving mildly Suicidality/Homicidality: Patient denies having any homicidal ideation intent or plan. Denies any suicidal ideations intent or plan Perceptions: Patient denies any visual hallucinations and denies any auditory hallucinations Though content/process: There is no evidence of delusional content. thought process is linear today. Memory and concentration: AOX3, grossly intact for the purposes of this session. Judgment and insight: chronically poor IMPRESSIONS: Schizophrenia Nicotine dependence non adherence to medication PLAN: -Patient is admitted under involuntary status to [facility] for stabilization of psychiatric symptoms and safety. Patient has not signed adult voluntary form or medication consent and is placed in patient's chart. Patient signed a waive and stip with her deputy commonwealth's attorney. -Medications : Prolixin 2.5mg daily + 5mg QHS for psychosis, plan to titrate up as tolerated, with plan to transition patient back onto Prolixin D long-acting injection to help ensure compliance. Clozapine 200mg at bedtime, trazodone 100mg qhs prn, for sleep. Cogentin 0.5 mg po bid for EPS reactions. -Ativan and Haldol PRN for agitation/aggression -NRT - nicotine patch -SW on board for discharge planning. Encourage patient to participate in groups to work on coping skills. Patient signed a waive and stip with her deputy commonwealth's attorney on 06/23. Likely discharge thursday, after patient is transitioned onto FRANCO. will give Prolixin D on thursday. She would likely be going to [facility].
--- NOTE | 2024-06-25 10:13 | P.PN ---
Progress Note - Text Progress Note Date: 06/25/24 Interval history: Patient was seen laying in her bed this morning and was directable and agreeable to speak with commercial loan underwriter. She claims that she got up for breakfast. She has an improvement in her affect today. Claims that she has been trying to do exercise walking in the hallways. States that she slept fairly last night. Denies any issues overnight. We spoke briefly about discharge planning, she continues to be agreeable to be transition onto a long-acting injection. At this time patient denies any suicidal or homicidal ideations intent or plan. Denies any Auditory or visual hallucinations. Patient denies any side effects from the medications and has been compliant with meds. Mental status exam: General Appearance: Patient appears to be mildly overweight, stated age is alert, directable, and cooperative. Behavior: No agitated behavior. Patient is calm and directable, more cooperative today and brighter affect Speech: Patient's speech is fluent and nonpressured. Mood/Affect: Mood is improving mildly, affect is congruent and affect improving Suicidality/Homicidality: Patient denies having any suicidal or homicidal ideation intent or plan. Perceptions: Patient denies any auditory or visual hallucinations. Though content/process: There is no evidence of any delusional thought content and thought process is linear and goal-directed. Memory and concentration: AOX3, grossly intact for the purposes of this session Judgment and insight: 4, improving mildly Assessment/Plan: Continue with current diagnosis. Patient continues to meet criteria for inpatient psychiatric admission for symptom stabilization and safety. Patient will be maintained on current psychotropic medication regimen. Monitor for medication compliance and for any psychotropic medication side effects. Will continue to monitor ongoing response to treatment. Encouraged participation in milieu.
[2024-06-25] MEDS: LORazepam 1 MG TAB PO PRN (21:22)
[2024-06-26 07:22] VITALS: RESP 16
--- NOTE | 2024-06-26 12:13 | P.PN ---
Progress Note - Text Progress Note Date: 06/26/24 Interval history: Patient was seen wandering the hallways this morning and was directable and a greeable to speak with commercial underwriter. She claims that she is doing better today, has a significant improvement in her affect today, was smiling. Denies any depression or anxiety today. States that she has been interacting with others, tried to go to some groups. States that she slept fairly last night. Denies any issues overnight. We spoke briefly about discharge planning, she continues to be agree able to be transition onto a long-acting injection. At this time patient denies any suicidal or homicidal ideations intent or plan. Denies any Auditory or visual hallucinations. Patient denies any side effects from the medications and has been compliant with meds. Mental status exam: General Appearance: Patient appears to be mildly overweight, stated age is alert, directable, and cooperative. Behavior: No agitated behavior. Patient is calm and directable, more cooperative today and brighter affect Speech: Patient's speech is fluent and nonpressured. Mood/Affect: Mood is improving mildly, affect is congruent and affect improving Suicidality/Homicidality: Patient denies having any suicidal or homicidal ideation intent or plan. Perceptions: Patient denies any auditory or visual hallucinations. Though content/process: There is no evidence of any delusional thought content and thought process is linear and goal-directed. Memory and concentration: AOX3, grossly intact for the purposes of this session Judgment and insight: improving mildly Assessment/Plan: Continue with current diagnosis. Patient continues to meet criteria for inpatient psychiatric admission for symptom stabilization and safety. Patient will be maintained on current psychotropic medication regimen. Monitor for medication compliance and for any psychotropic medication side effects. Will continue to monitor ongoing response to treatment. Encouraged participation in milieu.
--- NOTE | 2024-06-27 11:32 | P.PN ---
Progress Note - Text Progress Note Date: 06/27/24 Interval History: Patient was seen in her room and was directable and agreeable to speak with wr iter at the bedside. She states that she is feeling good today. She claims that she slept well last night. She did sign a waive and stip with her division head, and will need to be transitioned onto a FRANCO prior to discharge. Patient agreeable. She endorses a good appetite. Patient denies any muscle stiffness. At this time patient denies any suicidal or homicidal ideations, intent or plan. Patient denies any auditory, visual hallucinations and denies any paranoia or delusions. Patient denies any side effects from the medications and has been compliant with meds. MENTAL STATUS EXAM: General Appearance: Patient appears to be older than stated age, is alert, directable, and attempts to cooperate. Dressed casually, wearing glasses. Patient appears to have poor hygiene and grooming, unkempt hair. Disheveled appearance. Behavior: Patient is seated without any agitated behavior. Patient has fair eye contact. cooperative today Speech: Patient's speech is fluent and nonpressured. Mood/Affect: Patient reports their mood is "great", affect is congruent and constricted, improving mildly Suicidality/Homicidality: Patient denies having any homicidal ideation intent or plan. Denies any suicidal ideations intent or plan Perceptions: Patient denies any visual hallucinations and denies any auditory hallucinations Though content/process: There is no evidence of delusional content. thought process is linear today. Memory and concentration: AOX3, grossly intact for the purposes of this session. Judgment and insight: chronically poor IMPRESSIONS: Schizophrenia Nicotine dependence non adherence to medication PLAN: -Patient is admitted under involuntary status to [facility] for stabilization of psychiatric symptoms and safety. Patient has not signed adult voluntary form or medication consent and is placed in patient's chart. Patient signed a waive and stip with her division head. -Medications : Prolixin D 37.5mg IM [id number], first dose today 06/27, next dose due, 07/11. change Prolixin 5mg QHS for psychosis, plan to titrate down, as patient will be on IM, Clozapine 200mg at bedtime, trazodone 100mg qhs prn, for sleep. Cogentin 0.5 mg po bid for EPS reactions. -Ativan and Haldol PRN for agitation/aggression -NRT - nicotine patch -SW on board for discharge planning. Encourage patient to participate in groups to work on coping skills. Patient signed a waive and stip with her division head on 06/23. Likely discharge thursday, after patient is transitioned onto FRANCO. will give Prolixin D on thursday. She would likely be going to [facility].
[2024-06-27] MEDS: fluPHENAZine DECANOATE 25 MG/ML 5ML MDV IM SCH (12:24)
[2024-06-27] MEDS: traZODone HCL 100 MG TAB PO PRN (21:39)
[2024-06-28 07:16] VITALS: BP 95/63; PULSE 86; TEMP 97.3
--- NOTE | 2024-06-28 11:08 | P.DS ---
Providers Date of admission: 06/20/24 22:53 Expected date of discharge: 06/28/24 Attending physician: Gael Trotter MD Consults: 06/20/24 22:59 Consult Physician Routine Consulting Provider: [facility] Consult Reason/Comments: H&P and medical Do you want consulting provider notified?: Yes Primary care physician: Stated None - Discharge Diagnosis(es) (1) Schizophrenia Current Visit: No Status: Acute Priority: High (2) Nonadherence to medication Current Visit: No Status: Acute Priority: Medium (3) Nicotine dependence Current Visit: No Status: Chronic Priority: Medium Hospital Course: Admission HPI: Admission note was completed by telegraphic typewriter operator chief "Patient presented to the hospital yesterday, she was brought in by police on a pickup order. Patient apparently is on an active deferral through the hospital which expires in 1 week. Patient apparently has not been going to her [facility] appointment and has has not been consistently taking her medications at the care home according to [facility] liaison. Patient is currently on Prolixin D a weekly injection and also taking Clozaril at nighttime. Patient was last admitted to the mental health unit in December 2023. She was agreeable to speak with telegraphic typewriter operator chief today in the office. Patient appears to have a mildly disheveled appearance, overweight. She was crying during the interview states that she felt that she could not come down the stairs to get her medications. Claims that she "canceled my appointment" with Dr. Verma her psychiatrist at [facility]. States that the police picked her up and brought her to the hospital. She was a fairly poor historian, she is denying any delusions at this time denying any paranoia. Claims that she does not feel she needs to be in the hospital. She claims that she is feeling sad because she does not see her family much. Denies any current depression at this time or anxiety. States that her sleep is fair, patient denies any flight of ideas racing thoughts. Patient stated she needs to get out of here and go home. dneies any current AH or Vh and denies any SI or HI. Patient smokes cigarettes." Hospital course: Upon admission to the unit patient was admitted involuntarily on a petition and certificate and a second certificate was completed and faxed with the courts. Patient apparently was already on a active deferral, a demand for hearing was scheduled with the court. Patient ended up signing a waive and stip and agreeing to a mental health court order with her director of retail. Patient was initially fairly isolative however with time of treatment she eventually got along well with other patients on the unit and followed unit protocol. Patient was compliant with the medications and denied any side effects throughout hospital course. Patient was started on a lower dose of clozapine down to 200 mg nightly for psychosis adjunct/mood stabilization/insomnia. Trazodone 100 mg nightly as needed for sleep, Cogentin 0.5 mg twice daily for EPS symptoms. Patient was transitioned onto Prolixin D30 7.5 mg IM every 2 weeks for psychosis. Plan will be to continue to taper down Prolixin p.o. dose. Patient spoke of her stressors and engaged in therapy both group and individual. Patient was also seen by medical team for history and physical exam. Throughout the course of the hospitalization patient gradually improved with regards to mood, anxiety, psychosis, mood lability, sleep and returned back to their baseline level of functioning. On the day of discharge patient denied any suicidal or homicidal ideations intent or plan denied any auditory or visual hallucinations. Patient endorsed wanting to live for health and her future. The patient denied any access to guns or weapons. Patient denied any paranoia and did not endorse any delusions. Patient does not have a significant history of substance abuse and was counseled on abstaining from all substances including alcohol and marijuana. Patient was also counseled on the medications and need for regular compliance and was encouraged to follow-up with their outpatient appointment for mental health and also for primary care. Patient will be returning back to care home, she will be going to [facility] and continue close follow-up with [facility]. Mental status exam: General Appearance: Patient appears to be overweight, stated age is alert, pleasant, and cooperative. Patient is in no acute distress and has improved hygiene and grooming Behavior: Patient is calmly seated without any agitated behavior. More cooperative today Speech: Patient's speech is fluent and nonpressured. Mood/Affect: Patient reports their mood is "better", affect is congruent and euthymic. Suicidality/Homicidality: Patient denies having any suicidal or homicidal ideation intent or plan. Perceptions: Patient denies any auditory or visual hallucinations. Though content/process: There is no evidence of any delusional thought content and thought process is linear and goal-directed. More future oriented Memory and concentration: AOX3, grossly intact for the purposes of this session. Can spell "WORLD" backwards correctly. Judgment and insight: improved with guarded prognosis Impression: Schizophrenia Nicotine dependence non adherence to medication Plan: -Continue with discharge today as patient has improved and stabilized psychiatrically and is not currently an imminent threat to herself and/or others. Patient will remain at chronically elevated risk for harm to self and/or others due to her impulsivity and chronic mental illness. -Continue medications: Continue p.o. Prolixin 5 mg nightly for 3 more days then discontinue. Patient was given Prolixin D30 7.5 mg IM on 06/27, will be doing every 2 weeks on 07/[address] [facility]. Continue with clozapine 200 mg nightly for mood stabilization/psychosis adjunct/sleep. Trazodone 100 mg nightly as needed for sleep, Cogentin 0.5 mg p.o. twice daily for EPS symptoms. -Patient was counseled on the need for medication compliance and appropriate follow-up at mental health and also primary care for medical issues. Patient verbalized understanding and agreed. -Social work to coordinate patient's discharge today to [facility]. Social work also to arrange for patients follow up appointments with [facility] for psychiatric care along with follow up with primary care provider. -Patient counseled on abstaining from recreational drugs and marijuana and alcohol. Was informed/educated on the adverse effects on their physical and mental health. Patient verbally agreed and understood. -Patient was instructed to return to the hospital or seek immediate medical care if their psychiatric or medical symptoms do worsen or reoccur. Allergies Allergy/AdvReac Type Severity Reaction Status Date / Time No Known Allergies Allergy Verified 06/20/24 20:07 Laboratory Results WBC 12.4 k/uL (3.8-10.6) H 06/21/24 15:19 RBC 4.62 m/uL (3.80-5.40) 06/21/24 15:19 Hgb 12.8 gm/dL (11.4-16.0) 06/21/24 15:19 Hct 39.6 % (34.0-46.0) 06/21/24 15:19 MCV 85.7 fL (80.0-100.0) 06/21/24 15:19 MCH 27.7 pg (25.0-35.0) 06/21/24 15:19 MCHC 32.3 g/dL (31.0-37.0) 06/21/24 15:19 RDW 18.3 % (11.5-15.5) H 06/21/24 15:19 Plt Count 313 k/uL (150-450) 06/21/24 15:19 MPV 7.5 06/21/24 15:19 Neutrophils % 65 % 06/21/24 15:19 Lymphocytes % 29 % 06/21/24 15:19 Monocytes % 4 % 06/21/24 15:19 Eosinophils % 0 % 06/21/24 15:19 Basophils % 0 % 06/21/24 15:19 Neutrophils # 8.0 k/uL (1.3-7.7) H 06/21/24 15:19 Lymphocytes # 3.5 k/uL (1.0-4.8) 06/21/24 15:19 Monocytes # 0.5 k/uL (0-1.0) 06/21/24 15:19 Eosinophils # 0.0 k/uL (0-0.7) 06/21/24 15:19 Basophils # 0.0 k/uL (0-0.2) 06/21/24 15:19 Anisocytosis Slight 06/21/24 15:19 Sodium 138 mmol/L (137-145) 06/21/24 15:19 Potassium 4.3 mmol/L (3.5-5.1) 06/21/24 15:19 Chloride 108 mmol/L (98-107) H 06/21/24 15:19 Carbon Dioxide 24 mmol/L (22-30) 06/21/24 15:19 Anion Gap 6 mmol/L 06/21/24 15:19 BUN 10 mg/dL (7-17) 06/21/24 15:19 Creatinine 0.84 mg/dL (0.52-1.04) 06/21/24 15:19 Est GFR (CKD-EPI)AfAm >90 (>60 ml/min/1.73 sqM) 06/21/24 15:19 Est GFR (CKD-EPI)NonAf 81 (>60 ml/min/1.73 sqM) 06/21/24 15:19 Glucose 95 mg/dL (74-99) 06/21/24 15:[address] Glu mg/dL 120 mg/dL 06/21/24 15:19 Hemoglobin A1c 5.8 % (<=6.0) 06/21/24 15:19 Calcium 9.3 mg/dL (8.4-10.2) 06/21/24 15:19 Total Bilirubin 0.5 mg/dL (0.2-1.3) 06/21/24 15:19 AST 18 U/L (14-36) 06/21/24 15:19 ALT 23 U/L (4-34) 06/21/24 15:19 Alkaline Phosphatase 103 U/L (38-126) 06/21/24 15:19 Total Protein 6.8 g/dL (6.3-8.2) 06/21/24 15:19 Albumin 3.9 g/dL (3.5-5.0) 06/21/24 15:19 Triglycerides 147.00 mg/dL (0.00-149.00) 06/21/24 15:19 Cholesterol 110.00 mg/dL (0.00-200.00) 06/21/24 15:19 LDL Cholesterol, Calc 35.7 mg/dL (0.0-131.0) 06/21/24 15:19 VLDL Cholesterol, Calc 29.40 mg/dL (5.00-40.00) 06/21/24 15:19 HDL Cholesterol 44.90 mg/dL (40.00-60.00) 06/21/24 15:19 Cholesterol/HDL Ratio 2.45 Ratio 06/21/24 15:19 TSH 1.860 mIU/L (0.465-4.680) 06/21/24 15:19 Urine Color Colorless 06/21/24 10:38 Urine Appearance Cloudy (Clear) H 06/21/24 10:38 Urine pH 6.0 (5.0-8.0) 06/21/24 10:38 Ur Specific [place] 1.008 (1.001-1.035) 06/21/24 10:38 Urine Protein Negative (Negative) 06/21/24 10:38 Urine Glucose (UA) Negative (Negative) 06/21/24 10:38 Urine Ketones Negative (Negative) 06/21/24 10:38 Urine Blood Negative (Negative) 06/21/24 10:38 Urine Nitrite Negative (Negative) 06/21/24 10:38 Urine Bilirubin Negative (Negative) 06/21/24 10:38 Urine Urobilinogen <2.0 mg/dL (<2.0) 06/21/24 10:38 Ur Leukocyte Esterase Negative (Negative) 06/21/24 10:38 Urine WBC 1 /hpf (0-5) 06/21/24 10:38 Ur Squamous Epith Cells 7 /hpf (0-4) H 06/21/24 10:38 Urine Bacteria Rare /hpf (None) H 06/21/24 10:38 Urine Mucus Rare /hpf (None) H 06/21/24 10:38 Urine Opiates Screen Negative (Negative) 06/21/24 10:38 Urine Methadone Screen Negative (Negative) 06/21/24 10:38 Ur Propoxyphene Screen Negative (Negative) 06/21/24 10:38 Urine Barbiturates Negative (Negative) 06/21/24 10:38 Ur Phencyclidine Scrn Negative (Negative) 06/21/24 10:38 Ur Amphetamine Screen Negative (Negative) 06/21/24 10:38 U Benzodiazepines Scrn Negative (Negative) 06/21/24 10:38 Urine Cocaine Screen Negative (Negative) 06/21/24 10:38 U Cannabinoids Screen Negative (Negative) 06/21/24 10:38 Urine Alcohol Negative (Negative) 06/21/24 10:38 U Creatinine Drug Scrn 52.5 mg/dL (>=20.0) 06/21/24 10:38 Influenza Type A (PCR) Not Detected (Not Detectd) 06/20/24 20:10 Influenza Type B (PCR) Not Detected (Not Detectd) 06/20/24 20:10 RSV (PCR) Not Detected (Not Detectd) 06/20/24 20:10 SARS-CoV-2 (PCR) Not Detected (Not Detectd) 06/20/24 20:10 Vital Signs Temp 97.3 F L 06/28/24 06:30 Pulse 86 06/28/24 06:30 Resp 16 06/28/24 06:30 BP 95/63 06/28/24 06:30 Pulse Ox 96 06/28/24 06:30 FiO2 Patient Condition at Discharge: Stable Plan - Discharge Summary Discharge Rx Participant: No New Discharge Prescriptions: New traZODone HCL [Desyrel] 100 mg PO HS PRN 30 Days #30 tab PRN Reason: Insomnia fluPHENAZine [Prolixin] 5 mg PO HS 3 Days #3 tab cloZAPine [Clozaril] 200 mg PO HS 10 Days #20 tab Benztropine Mesylate [Cogentin] 0.5 mg PO BID 30 Days #60 tab fluPHENAZine decanoate [Prolixin Decanoate] 37.5 mg IM Q14D #1 ml Continue Ibuprofen [Motrin] 600 mg PO TID PRN tab PRN Reason: Moderate Pain (Scale 4 To 6) Docusate [Colace] 100 mg PO BID 30 Days #60 cap Pantoprazole [Protonix] 40 mg PO AC-BRKFST 30 Days #30 tab Nicotine 14Mg/24Hr Patch [Habitrol] 1 patch TRANSDERM DAILY 14 Days #14 patch Discontinued cloZAPine [Clozaril] 50 mg PO DAILY 7 Days #14 tab Benztropine Mesylate [Cogentin] 0.5 mg PO HS 30 Days #30 tab cloZAPine [Clozaril] 300 mg PO HS 7 Days #21 tab traZODone HCL [Desyrel] 100 mg PO HS PRN 30 Days #30 tab PRN Reason: Insomnia Discharge Medication List Ibuprofen [Motrin] 600 mg PO TID PRN tab 01/06/24 [Rx] Benztropine Mesylate [Cogentin] 0.5 mg PO BID 30 Days #60 tab 06/28/24 [Rx] Docusate [Colace] 100 mg PO BID 30 Days #60 cap 06/28/24 [Rx] Nicotine 14Mg/24Hr Patch [Habitrol] 1 patch TRANSDERM DAILY 14 Days #14 patch 06/28/24 [Rx] Pantoprazole [Protonix] 40 mg PO AC-BRKFST 30 Days #30 tab 06/28/24 [Rx] cloZAPine [Clozaril] 200 mg PO HS 10 Days #20 tab 06/28/24 [Rx] fluPHENAZine [Prolixin] 5 mg PO HS 3 Days #3 tab 06/28/24 [Rx] fluPHENAZine decanoate [Prolixin Decanoate] 37.5 mg IM Q14D #1 ml 06/28/24 [Rx] traZODone HCL [Desyrel] 100 mg PO HS PRN 30 Days #30 tab 06/28/24 [Rx] Follow up Appointment(s)/Referral(s): [facility] [NON-STAFF] - 1 Week Patient Instructions/Handouts: How to Stop Smoking (DC), Schizophrenia (DC) Activity/Diet/Wound Care/Special Instructions: Avoid the use of street drugs and alcohol. Take all medications as prescribed. When you are in need of refills on your medications, please contact your medical provider and/or outpatient psychiatrist/provider to have this done. Please go to your scheduled outpatient appointment for aftercare treatment. If symptoms return or become worse, call the crisis line at and/or go to the nearest emergency room for evaluation. National Suicide Hotline 132 Discharge Disposition: OTHER INSTITUTION NOT DEFINED
== END 2024-06-28 13:28 | disposition home or self-care (01) | DRG 885 ==
LOC: EC 20:02 → 3MHU 22:53 → EEVIPCON 22:53
PROVIDERS: ADMIT Psychiatry & Neurology Psychiatry; ATTEND Psychiatry & Neurology Psychiatry
DX: F20.9 Schizophrenia, unspecified (principal); R45.851 Suicidal ideations; D72.829 Elevated white blood cell count, unspecified; E66.3 Overweight; F17.210 Nicotine dependence, cigarettes, uncomplicated; F41.9 Anxiety disorder, unspecified; G47.00 Insomnia, unspecified; K21.9 Gastro-esophageal reflux disease without esophagitis; K59.00 Constipation, unspecified; W10.9XXA Fall (on) (from) unspecified stairs and steps, initial encounter; Z79.899 Other long term (current) drug therapy; Z91.148 Patient's other noncompliance with medication regimen for other reason; Z71.6 Tobacco abuse counseling
CPT/HCPCS: 80053; 80061; 80306; 81001; 82075; 83036; 84443; 85025; 87636; 99285